=== PATIENT | female | born 1965 | race Caucasian/White ===

== ENCOUNTER → 2021-01-06 12:54 | Outpatient (CLI) | payer OTHER, BC, SELFPAY ==
--- NOTE | 2021-01-06 13:03 | XR_ITS ---
PROCEDURE: XR HAND LT MIN 3V CLINICAL INDICATION: Left hand injury COMPARISON: No exams were available for comparison FINDINGS: No fracture or dislocation. No lytic or blastic change. There is normal mineralization. The joint spaces are well-preserved. No significant degenerative/arthritic changes. No erosive changes evident. Other findings:None. IMPRESSION: No acute findings. Dictated by: Renato Lim MD 01/06/2021 17:04 Renato Lim MD in [place] 01/06/2021 17:04
== END ==
PROVIDERS: PCP Family Medicine; Visit Provider Family Medicine
DX: M79.642 Pain in left hand (principal); Y99.0 Civilian activity done for income or pay
CPT/HCPCS: 73130

== ENCOUNTER → 2021-02-11 15:17 | Outpatient (CLI) | payer BC, SELFPAY | PROVIDERS: Visit Provider Nurse Practitioner Family | DX: R39.15 Urgency of urination (principal); B96.20 Unspecified Escherichia coli [E. coli] as the cause of diseases classified elsewhere | CPT/HCPCS: 87086; 87088; 87186 ==

== ENCOUNTER → 2021-04-07 08:26 | Outpatient (CLI) | payer BC, SELFPAY ==
--- NOTE | 2021-04-07 08:35 | XR_ITS ---
FINAL REPORT CLINICAL HISTORY: right shoulder pain x 1 month FINDINGS: RIGHT SHOULDER Three views demonstrate no acute fracture or dislocation. There are mild degenerative changes of the acromioclavicular joint. The visualized bony structures are well aligned. No soft tissue abnormality is seen. IMPRESSION: Mild degenerative changes of the acromioclavicular joint. Reviewed, Interpreted and Dictated by Yuval Mims III, MD Transcribed by Cyndy Nix Authenticated by Yuval Mims III, MD on 04/07/2021 10:18:[address] [facility]
== END ==
LOC: RAD 08:27
PROVIDERS: PCP Family Medicine; Visit Provider Orthopaedic Surgery
DX: M25.511 Pain in right shoulder (principal)
CPT/HCPCS: 73030

== ENCOUNTER → 2021-04-20 14:58 | Outpatient (CLI) | payer BC, SELFPAY ==
--- NOTE | 2021-04-20 14:58 | MR_ITS ---
FINAL REPORT CLINICAL HISTORY: shoulder pain. SHOULDER PAIN AND STIFFNESS [id number]. NO INJURY OR TRAUMA. LIMITED ROM. PRIOR X-RAY 04-07-21 FINDINGS: Multiplanar MR imaging of the right shoulder was performed without contrast. Supraspinatus and infraspinatus tendinosis with partial-thickness, articular surface tear of the infraspinatus tendon measuring less than 50%. There is mild a.c. joint arthrosis with mild spurring of the undersurface of the acromion. A small amount of fluid is seen in the subacromial/subdeltoid bursa. There is thickening of the joint capsule at the axillary recess consistent with adhesive capsulitis. The glenoid labrum is intact. The long head of the biceps tendon is intact. No significant glenohumeral joint effusion is seen. There is no evidence of fracture or dislocation. The musculature is intact. There is no evidence of soft tissue mass. IMPRESSION: Supraspinatus and infraspinatus tendinosis with partial-thickness, articular surface tear of the infraspinatus tendon, less than 50%. Mild a.c. joint arthrosis with spurring at the undersurface of the acromion and small amount of fluid in the joint bursa. Thickening of the joint capsule of the axillary recess consistent with adhesive capsulitis. Reviewed, Interpreted and Dictated by Yuval Mims III, MD Transcribed by Velia Armas Authenticated by Yuval Mims III, MD on 04/20/2021 05:03:49 PM [facility]
== END ==
LOC: RAD 14:58
PROVIDERS: PCP Family Medicine; Visit Provider Orthopaedic Surgery
DX: M12.811 Other specific arthropathies, not elsewhere classified, right shoulder (principal)
CPT/HCPCS: 73221

== ENCOUNTER → 2022-02-05 14:26 | Outpatient (CLI) | payer BC, SELFPAY ==
[2022-02-05 19:54] LABS: Basophils # 0.1 K/mm3 (0-0.2); Basophils % 1.1 % (0.1-2.0); Eosinophils # 0.4 K/mm3 (0.0-0.4); Eosinophils % 3.2 % (0.1-12.0); Hematocrit 43.6 % (37.0-47.0); Hemoglobin 14.2 g/dL (12.2-16.2); Lymphocytes # 3.6 K/mm3 (0.7-4.5); Lymphocytes % 27.5 % (10-50); Mean Corpuscular HGB Conc 32.5 g/dL (31.8-35.4); Mean Corpuscular Hemoglobin 27.9 pg (27.0-31.2); Mean Corpuscular Volume 85.9 fl (81-99); Mean Platelet Volume 9.3 fl (7.4-10.4); Monocytes # 0.6 K/mm3 (0.1-1.0); Monocytes % 4.7 % (1.7-9.3); Neutrophils # 8.2 K/mm3 (1.8-7.8); Neutrophils % 63.5 % (37.0-80.0); Platelet Count 510 K/mm3 (142-424); Red Blood Count 5.08 M/mm3 (4.20-5.40); Red Cell Distribution Width 13.3 % (11.5-17.5); White Blood Count 12.9 K/mm3 (4.8-10.8)
== END ==
PROVIDERS: PCP Family Medicine; Visit Provider Family Medicine
DX: R05.9 Cough, unspecified (principal)
CPT/HCPCS: 85025

== ENCOUNTER → 2022-08-06 21:58 | Outpatient (CLI) | payer BC, SELFPAY ==
[2022-08-06 23:14] LABS: Thyroid Stimulating Hormone 0.97 uIU/mL (0.465-4.68)
[2022-08-06 23:33] LABS: Vitamin B12 352 pg/mL (239-931)
== END ==
PROVIDERS: PCP Family Medicine; Visit Provider Family Medicine
DX: G62.9 Polyneuropathy, unspecified (principal)
CPT/HCPCS: 82607; 84443

== ENCOUNTER 2023-09-26 15:45 | Outpatient (CLI) | payer BC, SELFPAY ==
--- NOTE | 2023-09-26 15:52 | MR_ITS ---
FINAL REPORT TECHNIQUE: Multiplanar MR imaging of the right shoulder was obtained before and after the injection of IV contrast. CLINICAL HISTORY: Previous right shoulder tears. COMPARISON: 04/20/2021 FINDINGS: MRI RIGHT SHOULDER WITHOUT AND WITH CONTRAST Marrow signal: Unremarkable Glenohumeral joint: Physiologic effusion. Mild degenerative changes. AC joint: Moderate arthropathy. Mild rotator cuff impingement. Trace amount of fluid in the subacromial bursa. Rotator cuff: Tendinosis of the supraspinatus and infraspinatus tendons it is again noted. There is a new small partial tear at the undersurface of the distal supraspinatus tendon. Labrum: Normal morphology without tear Biceps tendon: Intra-articular long head biceps tendon intact. No mass or abnormal enhancement is seen. IMPRESSION: 1. Interval development of a small partial tear of the distal supraspinatus tendon. 2. No labral tear. 3. No mass or abnormal contrast-enhancement. Reviewed, Interpreted and Dictated by Tracy Pino MD Transcribed by Leilani Tirado Authenticated and [facility]
[2023-09-26] MEDS: GADOTERIDOL INJ 20ML SYRINGE 18 ML IV (16:28)
[2023-09-26] MEDS: SODIUM CHLORIDE 0.9% 10ML SYR (RAD ONLY) 10 ML IV (16:29)
== END 2023-09-26 23:59 | disposition home or self-care (01) ==
LOC: RAD 15:46
PROVIDERS: PCP Family Medicine; Visit Provider Family Medicine
DX: M25.511 Pain in right shoulder (principal)
CPT/HCPCS: 73223; A9576

== ENCOUNTER 2024-06-01 14:18 | Outpatient (CLI) | payer MEDICARE, SELFPAY ==
--- NOTE | 2024-06-01 14:30 | MR_ITS ---
FINAL REPORT CLINICAL HISTORY: Enversion w/pop; Negative XRs; Lateral Ankle pain; TWISTED LEFT ANKLE JAN 2024 , WITH LATERAL ANKLE PAIN AND SWELLING FINDINGS: Multiplanar MR imaging of the left ankle was performed without contrast. The Achilles tendon is intact. The plantar fascia is intact. There is a small plantar calcaneal spur. There is a large osteochondral lesion in the medial talar dome measuring approximately 1.3 cm. The mortise is intact. The supporting tendons about the ankle are intact. No significant joint effusion is seen. The musculature is intact. There is no evidence of soft tissue mass or cyst. IMPRESSION: Large osteochondral lesion in the medial talar dome. Reviewed, Interpreted and Dictated by Gianluca Parekh MD Transcribed by Leilani Tirado Authenticated and [facility]
== END 2024-06-01 23:59 | disposition home or self-care (01) ==
LOC: RAD 14:18
PROVIDERS: PCP Family Medicine; Visit Provider Family Medicine
DX: M25.572 Pain in left ankle and joints of left foot (principal)
CPT/HCPCS: 73721

== ENCOUNTER 2024-08-17 09:34 | Inpatient (IN) | payer MEDICAID, SELFPAY ==
--- OUTSIDE RECORDS SUMMARY | 2024-06-28 11:00 | XMS_ITS | Encounter Summary ---
Author Organization [facility] Address [address] [place] [address] Care Team Providers Care Opener Name Role Phone Albaro Fields MD Primary Care Provider [phone] Reason for Referral * Physical Therapy (Routine) - Authorization Not Needed Specialty Diagnoses / Procedures Referred By Lit georges Referred To Contact Physical Therapy Diagnoses Left ankle pain, unspecified chronicity Osteochondral lesion of talar dome Neil Boston MD [address] [facility] [address] [place] [address] Phone: tel: fax: [facility] [address] [facility] [address] [place] [address] Phone: tel: fax: Referral ID Status Reason Start Date Expiration Date Visits Requested Visits Authorized [id number] Authorization Not Needed 06/28/2024 03/06/2025 1 20 Question Answer surgical procedure S/P Arthroscopy with Excision and Drilling OCD lesion talus Evaluate and Treat Yes Modalities/Procedures As Indicated, Iontophoresis with 0.4% Dexamethasone Solution Therapeutic Exercise As Indicated, Passive, Active, Progressive Resistive, Flexibility/Stretching Goals: Decrease pain and swelling, Increase function, Increase strength, Increase ROM Additional instructions: Frequency and duration per therapist discretion Comments Patient to perform home exercises daily * Surgical (Routine) - AFF Authorized Specialty Diagnoses / Procedures Referred By Lit georges Referred To Contact Orthopedic Surgery Diagnoses Osteochondral lesion of talar dome Procedures AMB OC SURGERY COMMUNICATION ORDER Hair Villagomez PA-C [address] [place] [address] Phone: tel: fax: [facility] [address] [place] [address] Phone: tel: fax: Referral ID Status Reason Start Date Expiration Date Visits Requested Visits Authorized [id number] AFF Authorized 06/28/2024 06/28/2025 1 1 Reason for Visit * Reason Comments Pain Encounter Details Date Type Department Care Team (Late st Contact Info) Description 06/28/2024 11:00 AM EDT Office Visit [facility] [address] [place] [address] Neil Boston MD [address] [place] [address] Left ankle pain, unspecified chronicity (Primary Dx); Osteochondral lesion of talar dome Social History Tobacco Use Types Packs/Day Years Used Date Smoking Tobacco: Some Days Cigarettes Smokeless Tobacco: Never Alcohol Use Standard Drinks/Week Comments No 0 (1 standard drink = 0.6 oz pur e alcohol) Comments No Sex and Gender Information Value Date Recorded Sex Assigned at Not on file Legal Sex Female 10:58 AM EST Gender Identity Not on file Sexual Orientation Not on file documented as of this encounter Progress Notes * Neil Boston MD - 06/28/2024 11:00 AM EDT Images from the original note were not included. Marco Boston MD Foot and Ankle Surgery and Sports Medicine [email or web address] Subjective: 06/28/2024 [facility] 58 y.o. female. HPI: History of Present Illness The patient presents for evaluation of left ankle pain. The pain was first noticed in 12/2023 or 01/2024, following an incident where she rolled her ankle while at work.. The pain persisted despite attempts at relative rest and returning to work.. Despitethe discomfort, she continued to work on the day of the incident. She was off work the following weekend and elevated her ankle. Immediate medical attention was not sought at the emergency room. Workwas resumed the subsequent week, but intermittent pain continued. Approximately a week after the initial injury, significant swelling was noted one morning, and she was unable to bear weight on the ankle. Medical attention was sought at [facility] in [place], where x-rays were pe rformed, but no abnormalities were detected. She was advised to consult her family doctor, who ordered an MRI later after an insurance delay. Due to insurance issues, the MRI was delayed until insurance was reinstated. The MRI results prompted her family doctor to refer her to our facility. She hasbeen off work since 01/2024 and continues to experience intermittent pain in her ankle. Pain management has included daily anti-inflammatory medication, which she had been taking prior to the ankle injury. Braces and rest have been tried without relief. A history of plantar fasciitis is noted, but no other ankle-related issues are reported. 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 Neuro: Alert and oriented to person, place, and time. Normal neurosensory response to touch. Musculoskeletal: Physical Exam - Musculoskeletal: - Left Ankle: - Mild effusion - Mild tenderness on the medial side - More tenderness on the lateral joint line - Negative anterior drawer - No varus tilt - No malalignment on sitting standing exam - Slightly decreased range of motion compared to the right Radiology/Laboratory Results: Results - Imaging: - X-ray of the left ankle (06/28/2024): Evidence of osteochondral lesion medial talar dome, maintenance of joint space - MRI of the left ankle (06/01/2024): Chronic osteochondral lesion medial talar dome with thinning and disruption of the cartilaginous surface in the posteromedial talus Assessment and Plan: Assessment & Plan - Osteochondral lesion of the left ankle, talus Treatment plan: Surgical intervention through ankle arthroscopic surgery is recommended due to the chronic nature of the pain and previous unsuccessful treatments with braces and medications. The procedure involves cleaning out the area, removing loose cartilage and pieces, and drilling tiny holes to stimulate healing. Outpatient surgery will be scheduled, allowing immediate weight-bearing post-surgery. Physicaltherapy will be essential for rehabilitation to restore motion and strength while the cartilage heals. Informed consent was obtained for left ankle arthroscopy, excision drilling osteochondral lesion talus. The risks, benefits, and alternatives of that procedure, the postoperative protocol, and the short term and long-term expectations were explained to the patient and/or patient guardian in detail. This discussion included the possible results of not having this intervention performed and the benefits and risks of these alternatives. If a non-autologous graft is planned, I have additionally discussed the risks, benefits, and alternatives to the use of such grafts. I explained the great importanceof compliance with postoperative instructions. The patient and/or guardian was encouraged to ask questions and those questions were answered to their satisfaction. The patient and/or guardian verbalized understanding of the discussion. Neil Boston MD Foot and Ankle Surgeon Please note that this water meter mechanic was created using voice recognition software. Any errors are unintentional and may be due to voice recognition water meter mechanic. The provider informed the patient (or legal apprenticeship representative) on the use of the ambient listening artificial intelligence tool, [id number] to obtain consent to its use. It was explained that this AI tool processes the conversation to generate a clinical note with the expected benefit of improved accuracy with a goal of improving the encounter experience for the patient and provider.?The provider explained that the medical information captured by the AI tool would be protected by applicable privacy laws. The patient was given an opportunity to ask questions and opt out of proceeding with the use of the AI tool. After being informed of such information, the patient (or legal apprenticeship representative), and each individual in attendance with the patient, consented to the use of the AI tool. Neil Boston MD documented in this encounter Miscellaneous Notes * Addendum Note - Norman Linares, Clerical Staff - 06/28/2024 11:00 AM EDT Addended by: NORMAN LINARES on: 06/28/2024 02:11 PM Modules accepted: Orders documented in this encounter Plan of Treatment Upcoming Encounters Date Type Department Care Team (Late st Contact Info) Description 08/30/2024 10:30 AM EDT Office Visit [facility] [address] [place] [address] Hair Villagomez PA-C [address] [place] [address] Scheduled Orders Name Type Priority Associated Diagnoses Orde r Schedule SURGICAL/PROCEDURE CASE REQUEST - [facility] Procedures Routine Osteochondral lesion of talar dome Ordered: 06/28/2024 Scheduled Referrals Name Type Priority Associated Diagnoses Orde r Schedule AMB REFERRAL TO PHYSICAL THERAPY Outpatient Referral Routine Left Ankle Pain, Unspecified Chronicity Osteochondral lesion of talar dome Ordered: 06/28/2024 documented as of this encounter Results * XR ANKLE LEFT AP LATERAL AND OBLIQUE INCLUDING STANDING (06/28/2024 11:02 AM EDT) Narrative Genericuser, Audit - 06/28/2024 11:03 AM EDT Please see physician's note from office encounter for x-ray imaging result Neil Boston MD IMG DIAGNOSTIC IMAGING ORDER ROLANDO Final Result documented in this encounter Visit Diagnoses Diagnosis Left ankle pain, unspecified chronicity- Primary Osteochondral lesion of talar dome Disorder of bone and cartilage, unspecified Left ankle pain, unspecified chronicity documented in this encounter Orders Nursing Count Last Ordered Date First Orde red Date AMB [facility] SURGERY COMMUNICATION ORDER 1 2024 documented in this encounter Care Teams Opener Relationship Specialty Start Date End Date Albaro Fields MD PCP - General Family Medicine 05/08/13 documented as of this encounter
--- OUTSIDE RECORDS SUMMARY | 2024-06-28 11:15 | XMS_ITS | Encounter Summary ---
Author Organization [facility] Address [address] [place] [address] Care Team Providers Care Glass Ribbon Machine Operator Name Role Phone Albaro Fields MD Primary Care Provider [phone] Encounter Details Date Type Department Care Team (Late Contact Info) Description 06/28/2024 11:15 AM EDT [facility] [address] [address] Neil Boston MD [address] [id number] Left ankle pain, unspecified chronicity Social History Tobacco Use Types Packs/Day Years [...] on file documented as of this encounter Plan of Treatment Upcoming Encounters Date Type Department Care Team (Late st Contact Info) Description 08/30/2024 10:30 AM EDT Office Visit [facility] [address] [address] Hair Villagomez PA-C [address] [place], [place] [id number] documented as of this encounter Procedures Procedure Name Priority Date/Time Associated Diagnosis Comments XR ANKLE LEFT AP LATERAL AND OBLIQUE INCLUDING STANDING Routine 06/28/2024 11:02 AM EDT Left ankle pain, unspecified chronicity documented in this encounter Results * XR ANKLE LEFT AP LATERAL AND OBLIQUE INCLUDING STANDING (06/28/2024 11:02 AM EDT) Narrative Genericuser, Shane - 06/28/2024 11:03 AM EDT Please see physician's note from office encounter for x-ray imaging result us Neil Boston MD IMG DIAGNOSTIC IMAGING ORDER ROLANDO Final Result documented in this encounter Visit Diagnoses Diagnosis Left ankle pain, unspecified chronicity documented in this encounter Care Teams Glass Ribbon Machine Operator Relationship Specialty Start Date End Date Albaro Fields MD PCP - General Family Medicine 05/08/13 documented as of this encounter
--- OUTSIDE RECORDS SUMMARY | 2024-07-25 07:53 | XMS_ITS | Encounter Summary ---
Author Organization [facility] Address [address] [place] [phone] Phone Care Team Providers Care Screw Machine Adjuster Automatic Name Role Phone Albaro Fields MD Primary Care Provider [phone] Encounter Details Date Type Department Care Team (Late st Contact Info) Description 07/25/2024 7:53 AM EDT Anesthesia Event [facility] [address] [place], [place] [phone] Rachele Jordan CRNA [address] [facility] [address] [place] [address] Derrick Fish MD 340 [facility] [address] [place] [phone] Anesthesia Record Procedure Summary Procedure Name Responsible [...] acknowledgement of understanding from the receiving 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 0839 An Stop Meds Name Total lidocaine [...] Fibromyalgia GI/Hepatic/Renal - negative ROS Endo/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 Additional Pre-evaluation comments Opioids Body mass index [...] [facility] [address] [place] [address] Hair Villagomez PA-C [address] [place] [address] documented as of this encounter Procedures Procedure Name Priority Date/Time Associated Diagnosis Comments INTRAOP AIRWAY PLACEMENT Routine 07/25/2024 8:12 AM EDT documented in this encounter Results * INTRAOP AIRWAY PLACEMENT (07/25/2024 8:12 AM EDT) Narrative [facility] - 07/25/2024 8:12 AM EDT Rachele Jordan ELECTRIC RANGE ASSEMBLER 07/25/2024 8:12 AM Intraop Airway Placement: Date/Time: 07/25/2024 8:12 AM Induction type: IV Mask size: Standard adult Pre-Oxygenation: Standard Mask ventilation: Easy mask ventilation Airway type: LMA Topical Anesthetic/Lubricant: Lubricant jelly Airway location: Oral Device size: 4 Measured from: Lips Placement verified: Auscultation, End tidal CO2 and Symmetric chest wall motion Condition: Atraumatic and Unchanged Insertion attempts: 1 Title: ELECTRIC RANGE ASSEMBLER us Rachele Jordan ELECTRIC RANGE ASSEMBLER [place] ANESTHESIA Final Re sult [facility] [address] [place] [address] documented in this encounter Visit [...] mg documented in this encounter Care Teams Screw Machine Adjuster Automatic Relationship Specialty Start Date End Date Albaro Fields MD PCP - General Family Medicine 05/08/13 documented as of this encounter
--- OUTSIDE RECORDS SUMMARY | 2024-07-25 08:00 | XMS_ITS | Encounter Summary ---
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 [M89.9, M94.9] Procedures OR ARTHRS ANKLE EXC OSTCHNDRL DFCT W/DRLG DFCT Left Ankle Arthroscopy, excision drilling osteochondral lesion talus [facility] [address] [place] [phone] Phone: tel: fax: Referral ID Status Reason Start Date Expiration Date Visits Re quested Visits Authorized [id number] 1 1 Encounter Details Date Type Department Care Team (Late st Contact Info) Description 07/25/2024 8:00 AM EDT - 07/25/2024 11:59 PM EDT Hospital Encounter [facility] [address] [place], [place] [id number] Neil Boston MD [address] [address] Discharge Disposition: Home or Self Care Social History Tobacco Use Types Packs/Day Years Used Date Smoking Tobacco: Some Days Cigarettes 1 0.2 Started: 06/2024 Smokeless Tobacco: Never Tobacco Cessation:Ready to Q uit: Not Asked; Counseling Given: Not Answered Alcohol Use Standard Drinks/Week Comments No 0 (1 standard drink = 0.6 oz pur e alcohol) Comments No Sex and Gender Information Value Date Recorded Sex Assigned at Not on file Legal Sex Female 10:58 AM EST Gender Identity Not on file Sexual Orientation Not on file documented as of this encounter Last Filed Vital Signs Vital Sign Reading Time Taken Comments Blood Pressure 132/67 07/25/2024 8:55 AM EDT Pulse 73 07/25/2024 8:55 AM EDT Temperature 36.5 C (97.7 F) 07/25/2024 8:40 AM EDT Respiratory Rate 12 07/25/2024 8:55 AM EDT Oxygen Saturation 93% 07/25/2024 8:55 AM EDT Inhaled Oxygen Concentration - - Weight 89.8 kg (198 lb) 07/25/2024 6:25 AM EDT Height 162.6 cm (5' 4 ) 07/25/2024 6:25 AM EDT Body Mass Index 33.99 07/25/2024 6:25 AM EDT documented in this encounter Discharge Instructions * Discharge Instructions* Neil Boston MD - 07/25/2024 7:08 AM EDT Images from the original note were not included. Neli Boston MD [facility] DISCHARGE INSTRUCTIONS: READ THIS! 1. READ THESE INSTRUCTIONS WHEN YOU GET HOME, AND KEEP THIS COPY FOR REFERENCE AT HOME. Keep following these instructions until you are instructed otherwise. Following these instructions will help you recover with better pain control and a better outcome. 2. Do not drive or drink alcoholic beverages for 24 hours after surgery or while taking pain medication. Do not drive if you have a splint on your right foot. 3. Keep surgical foot elevated higher than heart as much as possible during the day. Avoid elevation and lay flat while sleeping. 4. What to expect following surgery. a) You received a nerve block before or during surgery. It is normal to have numbness or tingling ranging from 5-24 hours. B) Swelling in your toes C) Bruising or discoloration of the toes 5. Apply ice pack to foot or ankle five times a day for 45 minutes or more while awake. Avoid ice while sleeping. Do this even if the dressing is thick and you don't feel the cold. 6. Contact Dr. Boston' office or go to the emergency room if: a) You notice unusual redness, bleeding or drainage, rash, hives, or vomiting. b) Your pain is not managed by rest, ice, elevation, and pain medication. c) Go to ER immediately if you experience difficulty breathing or severe vomiting. 7. Weightbearing as tolerated on surgical foot using crutches or walker as needed. You may gradually discontinue crutches or walker only if well tolerated. 8. Up as tolerated, but limit your activity very significantly and protect your incision. 9. Keep dressing clean, dry and in place until 07/27/24, then may remove and shower the foot/ankle; then reapply a light bandage daily. Do not soak or submerge foot/ankle in bathtub or swimming pool of any kind. 10. May remove boot or surgical shoe for shower and sleep. May gradually convert to your own well-fitting shoe after three days only if well tolerated. If needed you may convert to your removable Cast Boot in 2 days, after dressing change. 11. Call the office as soon as possible at [phone] to confirm or schedule a follow up visit with TONI Weathers in 12-16 days at our [facility] location. 12. Take 800mg Ibuprofen 3 times a day for 7 days. A prescription has been sent to your pharmacy. You may also choose to use over the counter Ibuprofen/Advil rather than filling your prescription. Avoid if allergic or on blood thinners other than aspirin. May stop using this once pain is tolerable. 13. Take 1000mg Acetaminophen (Tylenol) 3 times a day consistently for 10 days, then as needed if still painful. This medication is available over the counter. Avoid if you have a history of liver disease or you are prescribed [place] (Hydrocodone/APAP). 14. A prescription will be sent to your pharmacy for Oxycodone (use this medication only as needed for pain uncontrolled by Ibuprofen and/or Tylenol; no more than 1-2 tablets every 4-6 hours). 15. Discontinue Oxycodone once pain is tolerable. 16. Common side effects include: nausea, vomiting, constipation, and itching. Drink plenty of waterto minimize the chance of side effects. 17. A prescription for promethazine/Phenergan has been sent to your pharmacy. This medication is chiquita used only as needed for nausea/vomiting that may occur after surgery due to side effects from anesthesia or pain medication. 18. Continue previous home medications as previously taken unless otherwise instructed. 19. Refills for pain medication are only available Tuesday thru Tuesday from 9am- 4pm. Refills may take 48 hours to process. Patients are requested to contact the office directly rather than requesting pain medication refills thru the pharmacy. [facility] Discharge Instructions - Following Anesthesia We appreciate the opportunity to care for you today! Here are a few reminders as you head home: A responsible adult, 18 years or older must be in attendance until tomorrow morning. Rest quietly today. May resume usual diet as tolerated or as directed by your surgeon. Do not drive or operate any machinery until tomorrow morning or as instructed. Do not make any legal or important decisions for the next 24 hours. Do not drink alcoholic beverages or take sleeping pills for 24 hours unless otherwise directed. If you received a nerve block for post-operative pain control, protect your blocked arm/leg. It is numb. Carefully pad your limb to prevent pressure sores and other injuries. Be careful with applyingcold/warm to the blocked limb. Numbness will alter the sensation of the limb and could damage your skin if you cannot correctly feel the temperature. Some nerve blocks with the medication Exparel aredesigned to last up to 3 days. If you have questions or concerns regarding your anesthesia experience, please call our office at . Get Well Soon! [facility] * Attachments The following attachments cannot be sent through Care Everywhere. * How to Use an Incentive Spirometer (Prydeinig) documented in this encounter Medications at Time of Discharge UNABLE TO FIND Take 20 mg by mouth daily. Med Name: Piroxican albuterol (PROVENTIL HFA;VENTOLIN HFA) 90 mcg/actuation Inhl HFA Aerosol Inhaler Inhale 2 Puffs into the lungs every 6 hours as needed for Wheezing. oxyCODONE (ROXICODONE) 5 mg Oral Tablet Take 1-2 Tablets by mouth See Admin Instructions. Every 8 hours as needed for pain 10 Tablet 07/25/2024 promethazine (PHENERGAN) 25 mg Oral Tablet Take 1 Tablet by mouth every 6 hours as needed for Nausea. 10 Tablet 07/25/2024 SUMAtriptan (IMITREX) 100 mg Oral Tablet Take 100 mg by mouth once as needed for Migraine. acetaminophen (TYLENOL) 500 mg Oral Tablet Take 2 Tablets by mouth every 8 hours for 10 days. 07/25/2024 5 ibuprofen (ADVIL;MOTRIN) 800 mg Oral Tablet Take 1 Tablet by mouth 3 times daily for 7 days. 21 Tablet 07/25/2024 documented as of this encounter Ordered Prescriptions Prescription Sig Dispense Quantity Refills Last Filled Start Date End Date promethazine (PHENERGAN) 25 mg Oral Tablet Take 1 Tablet by mouth every 6 hours as needed for Nausea. 10 Tablet 07/25/2024 oxyCODONE (ROXICODONE) 5 mg Oral Tablet Take 1-2 Tablets by mouth See Admin Instructions. Every 8 hours as needed for pain 10 Tablet 07/25/2024 acetaminophen (TYLENOL) 500 mg Oral Tablet Take 2 Tablets by mouth every 8 hours for 10 days. 07/25/2024 5 ibuprofen (ADVIL;MOTRIN) 800 mg Oral Tablet Take 1 Tablet by mouth 3 times daily for 7 days. 21 Tablet 07/25/2024 5 documented in this encounter Discharge Disposition Disposition Code Departure Means Destination Home or Self Care documented in this encounter Progress Notes * Mirna Padilla RN - 07/25/2024 9:12 AM EDT [facility] VSS. Denies pain. to bedside and discharge instructions reviewed. Darco placed per order & has walker & crutches at home if needed. Pt taken to car in wheelchair by RN. documented in this encounter Procedure Notes * Neil Boston MD - 07/25/2024 8:00 AM EDT Operative note Preoperative diagnosis: --Left ankle osteochondral lesion talus Postoperative diagnosis: Same Title of operation: --Left ankle arthroscopy, with excision and drilling of osteochondral lesion talus Surgeon: Neil Boston MD Tool Filer: TONI Pickett A skilled surgical services assistant was utilized and medically essential to the procedure. The skilled nurse first assist was necessary for positioning of the extremity during the procedure, as well as assisting with instrumentation and careful retraction of vital structures. The skilled nurse first assist was responsible for maintaining position of the foot and ankle in the appropriate position so thatthe surgeon had the availability of two hands free for doing dissection of vital structures, visualizing the surgical field and images, and also placing any implants necessary for the surgery. The skilled nurse first assist was also utilized for incisional closure. Anesthesia: General with intraoperative local Indications: chronic ankle pain from the above diagnosis. Informed consent obtained for the above procedure. Description of procedure: In the preoperative holding area the appropriate surgical site was identified and signed by the surgeon during a confirmation discussion with the patient. The patient was taken to the operating room placed supine on the operating table. General anesthesia was administered. A well-padded pneumatic tourniquet was placed around the surgical side thigh. A well-padded bump placed on the surgical side buttock. The surgical side thigh was placed in a well-padded arthroscopic leg trejo. The surgical lower extremity was prepped and draped in the usual sterile fashion while keeping the foot elevated at all times during preparation. The surgical lower extremity was elevated exsanguinated and the tourniquet was elevated. The ankle was injected through an anterior medial portal with 10 cc of 0.5% Marcaine with epinephrine. The anterior medial portal was established with a small skin only incision just medial to the anterior tibial tendon at the level of the joint. Blunt dissection was carried through subcutaneous tissues down through the capsule. An anterolateral portal was established at the joint line just lateral to the peroneus tertius tendon with a skin incision only and blunt dissectionthrough and into the capsule into the joint. The noninvasive ankle distractor was attached with minimal distraction. The blunt obturator was used to introduce the ankle arthroscopic cannula into the anterior medial portal. Camera was placed through the obturator. Complete examination of the ankle including the anterior and middle and posterior compartments as well as the medial central and lateral compartments and the medial and lateral gutter was performed by placing the camera through both the anteromedial and then subsequently the anterolateral portal using a probe in the opposite portal to visualize and palpate normal tissue and pathology in each compartment. Findings: The osteochondral lesion in the medial talar dome consistent with presurgical imaging wasnoted. It was unstable with loose cartilaginous fragment and nonrepairable bony fragment. Technical procedure: The loose fragmented OCD lesion was removed with a grasper and arthroscopic shaver. The surrounding base of the lesion was smoothed with arthroscopic shaver and thermal wand. Thebony base was then drilled multiple times using chondral pick technique, producing punctate bleeding at the base of the lesion. Closure: The joint was then reinspected through all compartments revealing no remaining pathology or loose bodies. Shaver was used to irrigate and remove any debris from procedure. Arthroscopic instruments were removed. The skin was closed with 3-0 nylon suture. Ankle joint was injected with 10 cc of 0.5% Marcaine with epinephrine. Sterile dressing was applied. Gentle compression dressing applied. Patient transferred to the postanesthesia care unit. Postop care: First postop visit in 10 to 12 days for wound check, sutures out, Steri-Strips applied, tall contour boot weight-bear as tolerated full-time except for shower, sleep, drive, and formal and home PT exercises. Second follow-up with PA in 3 to 4 weeks, to wean from boot, advance PT and return to activities, anticipate continued gradual improvement, follow-up with Ludy as needed if no improvement documented in this encounter Nursing Notes * Gabriella Sarmiento RN - 07/04/2024 10:13 AM EDT Images from the original note were not included. 07/04/24 PREPARING FOR YOUR SURGERY Date of Surgery: 07/25/24 Time of Surgery: Your surgeon's office will notify you of your scheduled arrival time on 07/24/24. Medications on the Day of Surgery Take the following medications on the morning of surgery: Medications to hold prior to Surgery Hold any anti-inflammatory, aspirin, or supplements / vitamins for 7 days prior to the procedure, unless otherwise informed by your physician. You can take Tylenol if needed. If you are taking blood-thinners, reach out to the prescribing physician for instructions on when to stop this medication prior to your procedure. Food, Drinks, Tobacco Do not eat or drink anything after midnight. This includes gum, mints, candy, chewing tobacco, and dip. No exceptions or substitutions to these restrictions. Do not smoke, vape, or use any type of tobacco or marijuana products within 24 hours prior to surgery. Smoking will also slow your rate of healing. It is advised that you do not smoke during the healing process. No alcohol 24 hours prior to surgery. Keying Machine Operator It is important to have a Keying Machine Operator, someone who is 18 years or older, to accompany you and remain in the facility for the duration of your surgery. This person should be available for the Perioperative Team, which includes your surgeon, to communicate with before, during and after your surgery. Because you are receiving anesthesia, someone is needed to drive you home and remain with you for at least 24 hours after surgery to make sure you are safe during that time We also recommend that no children be present on the day of surgery. If you have a concern, please reach out to our department at [phone]. Hygiene Salyer your teeth and gargle the morning of surgery. Shower the morning of surgery or the night before. Do not wear makeup (including eye makeup) lotion, powder, deodorant, perfume, or cologne. Shower or bathe with chlorhexidine (CHG) the night before your surgery or the morning of your surgery. Do not shave the area of your body where your surgery will be performed. With each shower or bath, wash your hair as usual first with your regular shampoo. Rinse your hair and body thoroughly after you shampoo your hair to remove the shampoo residue. Apply the chlorhexidine (CHG) soap to your entire body ONLY FROM THE NECK DOWN. Wash thoroughly, paying special attention to the area where your surgery will be performed. Do not use chlorhexidine (CHG) on your head, face or near your mouth. Do not use near eyes or ears to avoid permanent injury tothose areas. Do not use chlorhexidine in the genital area. Turn water off to prevent rinsing the soap off too soon. Wash your body gently for five (5) minutes. Do not scrub your skin too hard. Do not wash with your regular soap after chlorhexidine (CHG) is used. Turn the water back on and rinse your body thoroughly. Pat yourself dry with a clean, soft towel. Do not apply any lotions, perfumes or powders after use. See additional information located under label on product. Do not shave the operative extremity or near the operative area. Remove nail malawian prior to surgery. This includes artificial nails and gel nail malawian. Personal Items Wear clean, simple, loose-fitting clothing (no jeans) and sturdy shoes (no flip flops, slides or crocs) to the surgery center. Do not bring unnecessary valuables with you. It is policy that [facility] does not assume responsibility for lost, stolen or broken personal items that are brought in. Exceptions may be considered for items which are considered necessary for your healthcare. These items will be formally documented. Remove all jewelry prior to surgery to prevent injury. We will not tape wedding rings/bands Remove all body piercings prior to arrival. Plastic inserts are acceptable. If you have dentures, they may need to be removed before going into the operating room. We will have a case for them. Glasses and contacts will need to be removed prior to surgery. Please bring a case for them. If you have hearing aids, please wear them to the hospital and bring a case. Bring with You Bring a copy of your Living Will and/or Durable Power of Market Editor for Healthcare. Bring any medical equipment that your surgeon advises you to use for postoperative care such as braces, slings, boots, crutches, walkers, etc. Notify the Surgeon Notify your surgeon if you develop any illness (fever, cold, cough, sore throat, nausea, vomiting, skin rashes etc.) between now and surgery time Notify your surgeon and Pre-admission testing ([phone]) if you have any changes in your healthconditions or if any new medications are ordered between now and surgery. Questions or Concerns? If you have any questions or concerns, feel free to call the Pre-Admission testing department at [phone]. We want to make sure you feel safe and have an excellent experience while you are here. Our address is [address] [place] [address] Do not reply to this message through [employer] as it may not be answered promptly. documented in this encounter Plan of Treatment Upcoming Encounters Date Type Department Care Team (Late st Contact Info) Description 08/30/2024 10:30 AM EDT Office Visit [facility] [address] [place] [address] Hair Villagomez PA-C [address] [place] [address] documented as of this encounter Procedures Procedure Name Priority Date/Time Associated Diagnosis Comments OR ARTHRS ANKLE EXC OSTCHNDRL DFCT W/DRLG DFCT 07/25/2024 7:56 AM EDT Osteochondral lesion of talar dome Special Needs bv documented in this encounter Visit Diagnoses Diagnosis Osteochondral lesion of talar dome- Primary Disorder of bone and cartilage, unspecified documented in this encounter Admitting Diagnoses Diagnosis Osteochondral lesion of talar dome Disorder of bone and cartilage, unspecified documented in this encounter Administered Medications Inactive Administered Medications - up to 1 most recent administrations Medication Order MAR Action Action Date Dose Rate Site acetaminophen (TYLENOL) tablet 1,000 mg 1,000 mg, Oral, PREPROCEDURE, 1 dose, Starting on Tue07/25/24 at 0601, Until Tue07/25/24 at 0630, Coanalgesic, Do not give if patient received acetaminophen within the last 6 hours Maximum adult dose of acetaminophen is 4000 mg from all sources in 24 hours., Pre-op (Holding/SDS Meds) Given 07/25/2024 6:30 AM EDT 1,000 mg lactated ringers infusion Intravenous, at 100 mL/hr, PREPROCEDURE CONTINUOUS, Starting on Tue07/25/24 at 0601, Until Shania 07/26/24 at 0411, To be given in SDS/Pre-op Holding Area, Pre-op (Holding/SDS Meds) IV Restarted 07/25/2024 8:04 AM EDT documented in this encounter Discontinued Medications Medication Sig Discontinue Reason Start Date End Da te acetaminophen (TYLENOL) 500 mg tablet Take 1,000 mg by mouth every 6 hours as needed for Pain. Stop Taking at Discharge 07/25/2024 Cholecalciferol, Vitamin D3, 2,000 unit Cap Take 1 Cap by mouth daily. Stop Taking at Discharge 07/25/2024 acetaminophen (TYLENOL) 650 mg CR tablet Take 650 mg by mouth every 8 hours as needed for Pain. Stop Taking at Discharge 07/25/2024 nicotine (NICODERM CQ) 21 mg/24 hr patchIndications:Fibro myalgia,OA (osteoarthritis),[place] krysta C-reactive protein (CRP),Elevated white blood cell count,Elevated hemoglobin,Smoker,Medi cation monitoring encounter Place 1 Patch onto the skin daily. Stop Taking at Discharge 07/25/2024 HYDROcodone-acetaminop hen (NORCO) 7.5-325 mg per tabletIndications:Fibr omyalgia,OA (osteoarthritis),[place] krysta C-reactive protein (CRP),Elevated white blood cell count,Elevated hemoglobin,Smoker,Medi cation monitoring encounter Take 1 Tab by mouth as needed for Pain. Stop Taking at Discharge 07/25/2024 naproxen (NAPROSYN) 500 mg tabletIndications:Fibr omyalgia,OA (osteoarthritis),[place] k[place]a C-reactive protein (CRP),Elevated white blood cell count,Elevated hemoglobin,Smoker,Medi cation monitoring encounter Take 500 mg by mouth 2 times daily. Stop Taking at Discharge 07/25/2024 cyclobenzaprine (FLEXERIL) 10 mg tabletIndications:Fibr omyalgia,OA (osteoarthritis),[place] C-reactive protein (CRP),Elevated white blood cell count,Elevated hemoglobin,Smoker,Medi cation monitoring encounter Take 0.5 Tabs by mouth daily as needed for Muscle spasms. Stop Taking at Discharge 10/05/2013 07/25/2024 meloxicam (MOBIC) 15 mg Oral TabletIndications:Acut e pain of right shoulder Take 1 Tablet by mouth daily. Stop Taking at Discharge 10/19/2023 07/25/2024 documented as of this encounter Historical Medications * This list may reflect changes made after this encounter. SUMAtriptan (IMITREX) 100 mg Oral Tablet Take 100 mg by mouth once as needed for Migraine. albuterol (PROVENTIL HFA;VENTOLIN HFA) 90 mcg/actuation Inhl HFA Aerosol Inhaler Inhale 2 Puffs into the lungs every 6 hours as needed for Wheezing. UNABLE TO FIND Take 20 mg by mouth daily. Med Name: Piroxican added in this encounter Orders Medications Ordered That Scott ht Not Have Been Administered Count Last Ordered Date First Ordered Date acetaminophen (OFIRMEV) infusion 1,000 mg 1 07/25/2024 BUPivacaine-EPINEPHrine (MARCAINE/SENSORCAINE) 0.5 %-1:200,000 injection 1 07/25/2024 ceFAZolin (ANCEF) 2 g in sod ium chloride IVPB 1 07/25/2024 dimenhyDRINATE (DRAMAMINE) 1 2.5-25 mg in sodium chloride 0.9% injection 1 07/25/2024 droPERidol (INAPSINE) injection 0.625 mg 1 07/25/2024 EPINEPHrine HCl (PF) Soln 1 07/25/2024 fentaNYL (SUBLIMAZE) injection 25 mcg 1 HYDROmorphone (DILAUDID) injection 0.25 mg 1 07/25/2024 meperidine (DEMEROL) injecti on (PF) 12.5 mg 1 07/25/2024 ondansetron (ZOFRAN) injection 4 mg 1 07/25 ondansetron (ZOFRAN-ODT) dis integrating tablet 8 mg 1 07/25/2024 oxyCODONE (ROXICODONE) immed iate release tablet 5 mg 1 07/25/2024 promethazine (PHENERGAN) 12. 5 mg in sodium chloride 0.9% 10 mL injection 1 07/25/2024 promethazine (PHENERGAN) 6.2 5 mg in sodium chloride 0.9% 10 mL injection 1 07/25/2024 sodium chloride 0.9 % irrigation 1 07/26/19 25 documented in this encounter Care Teams Upholstery Auto Trimmer Relationship Specialty Start Date End Date Albaro Fields MD PCP - General Family Medicine 05/08/13 documented as of this encounter
--- OUTSIDE RECORDS SUMMARY | 2024-07-25 08:00 | XMS_ITS | Encounter Summary ---
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, M94.9] Procedures [place] ARTHRS ANKLE EXC OSTCHNDRL DFCT W/DRLG DFCT Left Ankle Arthroscopy, excision drilling osteochondral lesion talus [facility] [address] [place] [phone] Phone: tel: fax: Referral ID Status Reason Start Date Expiration Date Visits Re quested Visits Authorized [id number] 1 1 Encounter Details Date Type Department Care Team (Late st Contact Info) Description 07/25/2024 8:00 AM EDT - 07/25/2024 8:45 AM EDT Surgery [facility] [address] [place] [address] Neil Boston MD [address] [facility] [address] [place] [id number] ANKLE ARTHROSCOPY EXCISION/DRILLING AND REPAIR OSTEOCHONDRAL DISSECANS LESION TALUS Surgery Details Date/Time Status Location OR Service Patient Class Case Class Case Type Trauma Case? 07/25/2024 8:00 AM Posted [facility] OR 2 Orthopedics Outpatient Elective Panel 1 Procedure LRB Anes Op Region Wound Class Comments ANKLE ARTHROSCOPY EXCISION/DRILLING AND REPAIR OSTEOCHONDRAL DISSECANS LESION TALUS Left General Foot/Ankle Clean Left Ankle Arthroscopy, excision drilling osteochondral lesion talus Surgeon Surgeon Role Service Panel Neil Boston MD Primary Orthopedics 1 Special Needs bv documented in this encounter Social History Tobacco [...] Sign Reading Time Taken Comments Blood Pressure 127/63 07/25/2024 8:45 AM EDT Pulse 76 07/25/2024 8:45 AM EDT Temperature 36.5 C (97.7 F) 07/25/2024 8:40 AM EDT Respiratory Rate 20 07/25/2024 8:45 AM EDT Oxygen Saturation 94% 07/25/2024 8:40 AM EDT Inhaled Oxygen Concentration - - Weight 89.8 kg (198 lb) 07/25/2024 6:25 AM EDT Height 162.6 cm (5' 4 ) 07/25/2024 6:25 AM EDT Body Mass Index 33.99 07/25/2024 6:25 AM EDT documented in this encounter Discharge Instructions * Discharge Instructions* Neil Boston MD - 07/25/2024 7:08 AM EDT Images from the original note were not included. Neil Boston MD [email or web address] DISCHARGE INSTRUCTIONS: READ THIS! 1. READ THESE [...] the office as soon as possible at [phone] to confirm or schedule a follow up visit with TONI Weathers in 12-16 days at our [facility] location. 12. Take 800mg Ibuprofen 3 [...] of liver disease or you are prescribed [place] (Hydrocodone/APAP). 14. A prescription will be sent [...] requesting pain medication refills thru the pharmacy. [facility] Discharge Instructions - Following Anesthesia We [...] our office at . [facility]! [facility] * Attachments The following attachments cannot be sent through Care Everywhere. * How to Use an Incentive Spirometer (Jordanian) documented in this encounter Medications at Time [...] 7 days. 21 Tablet 07/25/2024 5 documented as of this encounter Ordered Prescriptions [...] osteochondral lesion talus Surgeon: Neil Boston MD Custom Leather Products Maker: TONI Pickett A skilled surgical aides teacher was utilized and medically essential to the procedure. The skilled list of first job ideas was necessary for positioning of the extremity during the procedure, as well as assisting with instrumentation and careful retraction of vital structures. The skilled list of first job ideas was responsible for maintaining position of the foot and ankle in the appropriate position so thatthe surgeon had the availability of two hands free for doing dissection of vital structures, visualizing the surgical field and images, and also placing any implants necessary for the surgery. The skilled list of first job ideas was also utilized for incisional closure. Anesthesia: [...] No alcohol 24 hours prior to surgery. Cardiology Rn It is important to have a Cardiology Rn, someone who is 18 years or older, [...] please reach out to our department at [phone]. Hygiene [place] your teeth and gargle the morning of [...] or near the operative area. Remove nail lithuanian prior to surgery. This includes artificial nails and gel nail lithuanian. Personal Items Wear clean, simple, loose-fitting clothing [...] your Living Will and/or Durable Power of Mining Captain for Healthcare. Bring any medical equipment that your surgeon advises you to use for postoperative care such as braces, slings, boots, crutches, walkers, etc. Notify the Surgeon Notify your surgeon if you develop any illness (fever, cold, cough, sore throat, nausea, vomiting, skin rashes etc.) between now and surgery time Notify your surgeon and Pre-admission testing ([phone]) if you have any changes in your healthconditions or if any new medications are ordered between now and surgery. Questions or Concerns? If you have any questions or concerns, feel free to call the Pre-Admission testing department at [phone]. We want to make sure you feel safe and have an excellent experience while you are here. Our address is [address] [place] [address] Do not reply to this message through [employer] as it may not be answered promptly. documented in this encounter Plan of Treatment Upcoming Encounters Date Type Department Care Team (Late st Contact Info) Description 08/30/2024 10:30 AM EDT Office Visit [facility] [address] [facility] [address] [place] [address] Hair Villagomez PA-C [address] [place] [address] documented as of this encounter Procedures Procedure Name Priority Date/Time Associated Diagnosis Comments [place] ARTHRS ANKLE EXC OSTCHNDRL DFCT W/DRLG DFCT 07/25/2024 7:56 AM EDT Osteochondral lesion of talar dome Special Needs bv documented in this encounter Visit Diagnoses Diagnosis Osteochondral lesion of talar dome- Primary Disorder of bone and cartilage, unspecified Osteochondral lesion of talar dome Disorder of [...] Given 07/25/2024 6:30 AM EDT 1,000 mg BUPivacaine-EPINEPHrine (MARCAINE/SENSORCAINE) 0.5 %-1:200,000 injection PRN, Starting on Tue07/25/24 at 0817, Until Tue07/25/24 at 0910, Intra-op Given 07/25/2024 8:17 AM EDT 20 mL Left Ankle EPINEPHrine HCl (PF) Soln PRN, Starting on Tue07/25/24 at 0817, Until Tue07/25/24 at 0910, Intra-op Given 07/25/2024 8:17 AM EDT 1 mL Left Ankle lactated ringers infusion Intravenous, at 100 mL/hr, PREPROCEDURE CONTINUOUS, Starting on Tue07/25/24 at 0601, Until Tue07/26/24 at 0411, To be given in SDS/Pre-op Holding Area, Pre-op (Holding/SDS Meds) IV Restarted 07/25/2024 8:04 AM EDT sodium chloride 0.9 % irrigation PRN, Starting on Tue07/25/24 at 0816, Until Tue07/25/24 at 0910, Intra-op Given 07/25/2024 8:16 AM EDT 1,000 mL Left Ankle documented in this encounter Discontinued Medications Medication [...] (NICODERM CQ) 21 mg/24 hr patchIndications:Fibro myalgia,OA (osteoarthritis),[place] krysta C-reactive protein (CRP),Elevated white blood cell count,Elevated hemoglobin,Smoker,Medi cation monitoring encounter Place 1 Patch onto the skin daily. Stop Taking at Discharge 07/25/2024 HYDROcodone-acetaminop hen (NORCO) 7.5-325 mg per tabletIndications:Fibr omyalgia,OA (osteoarthritis),[place] krysta C-reactive protein (CRP),Elevated white blood cell count,Elevated hemoglobin,Smoker,Medi cation monitoring encounter Take 1 Tab by mouth as needed for Pain. Stop Taking at Discharge 07/25/2024 naproxen (NAPROSYN) 500 mg tabletIndications:Fibr omyalgia,OA (osteoarthritis),[place] krysta C-reactive protein (CRP),Elevated white blood cell count,Elevated hemoglobin,Smoker,Medi cation monitoring encounter Take 500 mg by mouth 2 times daily. Stop Taking at Discharge 07/25/2024 cyclobenzaprine (FLEXERIL) 10 mg tabletIndications:Fibr omyalgia,OA (osteoarthritis),[place] krysta C-reactive protein (CRP),Elevated white blood cell [...] acetaminophen (OFIRMEV) infusion 1,000 mg 1 07/25/2024 ceFAZolin (ANCEF) 2 g in sod ium chloride IVPB 1 07/25/2024 dimenhyDRINATE (DRAMAMINE) 1 2.5-25 mg in sodium chloride 0.9% injection 1 07/25/2024 droPERidol (INAPSINE) injection 0.625 mg 1 07/25/2024 fentaNYL (SUBLIMAZE) injection 25 mcg [...] chloride 0.9% 10 mL injection 1 07/25/2024 documented in this encounter Care Teams Law Office Receptionist Relationship Specialty Start Date End Date Albaro Fields MD PCP - General Family Medicine 05/08/13 documented as of this encounter
--- OUTSIDE RECORDS SUMMARY | 2024-08-07 13:30 | XMS_ITS | Encounter Summary ---
Author Organization [facility] Address [address] [place] [address] Care Team Providers Care Leader Assembler Name Role Phone Albaro Fields MD Primary Care Provider Reason for Referral * Physical Therapy (Routine) - Pending Review Specialty Diagnoses / Procedures Referred By Lit georges Referred To Contact Diagnoses Osteochondral lesion of talar dome Hair Villagomez PA-C [address] [place] [address] Phone: tel: fax: Referral ID Status Reason Start Date Expiration Date V isits Requested Visits Authorized [id number] Pending Review 08/07/2024 08/07/2025 1 1 Question [...] 08/07/2024 1:30 PM EDT Office Visit [facility] [address] [address] Hair Villagomez PA-C [address] [place] [address] Osteochondral lesion of talar dome [...] Foot and Ankle Surgery and Sports Medicine [email or web address] HPI: Patient status post left ankle surgery. [...] [facility] [address] [place] [address] Hair Villagomez PA-C [address] [place] [address] Scheduled Referrals Name Type Priority Associated Diagnoses Orde r Schedule AMB REFERRAL TO PHYSICAL THERAPY Outpatient Referral Routine Osteochondral lesion of talar dome Ordered: 08/07/2024 documented as of this encounter Visit Diagnoses Diagnosis Osteochondral lesion of talar dome- Primary Disorder of bone and cartilage, unspecified documented in this encounter Care Teams Leader Assembler Relationship Specialty Start Date End Date Albaro Fields MD PCP - General Family Medicine 05/08/13 documented as of this encounter
--- OUTSIDE RECORDS SUMMARY | 2024-08-09 10:30 | XMS_ITS | Encounter Summary ---
Author Organization [facility] Address [address] [place] [address] Care Team Providers Care Coremaker Floor Name Role Phone Albaro Fields MD Primary Care Provider [phone] Reason for Visit * Physical Therapy (Routine) - Authorization Not Needed Specialty Diagnoses / Procedures Referred By Lit georges Referred To Contact Physical Therapy Diagnoses Left ankle pain, unspecified chronicity Osteochondral lesion of talar dome Neil Boston MD [address] [place] [address] Phone: tel: fax: [facility] [address] [place] [address] Phone: tel: fax: Referral ID Status Reason Start Date Expiration Date Visits Requested Visits Authorized [id number] Authorization Not Needed 06/28/2024 03/06/2025 1 20 Encounter Details Date Type Department Care Team (Latest Contact Info) Description 08/09/2024 10:30 AM EDT Office Visit [facility] [address] [place], [place] [id number] Bela Mccormick, PT [address] [place] [address] Osteochondral lesion of talar dome (Primary Dx); Chronic pain of left ankle Social History Tobacco Use Types Packs/Day Years [...] as of this encounter Progress Notes * Bela Mccormick, PT - 08/09/2024 10:30 AM EDT Images from the original note were not included. Physical Therapy Evaluation 08/09/2024 Kathy Chua : 1965 Referring Provider: Neil Boston MD Next MD visit: 08/30/24 Encounter Diagnoses Name Primary? Osteochondral lesion of talar dome Yes Chronic pain of left ankle Surgery Date: 07/25/24 Onset date: December 2023 Contraindications/Precautions: WBAT Visit: 03/26 Time In: 10:38 am Time Out: 11:18 am Subjective: Kathy Chua is a 58 y.o. female referred by Neil Boston MD to outpatient PhysicalTherapy with a primary diagnosis of: Encounter Diagnoses Name Primary? Osteochondral lesion of talar dome Yes Chronic pain of left ankle History of Injury/Mechanism of Inury: Pt notes that she rolled her ankle at the end of December 2023. She notes that she paid little attention to it and went back to work. Approximately one week latershe woke with significant edema and difficulty walking. She went to the ER and was diagnosed with asprain. She was provided a boot to wear however she was not able to wear this to work so she just wrapped it in an maico wrap. She then rolled it again which caused her to seek treatment at [facility].She was evaluated by Dr Boston and an MRI was performed. This indicated an osteochondral lesion to the talar dome. She therefore underwent surgery on July 25 to repair the lesion. Pt notes that she was placed in a cast shoe after surgery and used a walker for approximately 24 hours. She then transitioned to a cane for several days and is now walking without assistance. She presents today for postop evaluation and initiation of treatment. Functional Deficits Since Injury: ADL, IADL, household chore Diagnostic Tests: MRI and X-rays - X-ray of the left ankle (06/28/2024): Evidence of osteochondral lesion medial talar dome, maintenance of joint space - MRI of the left ankle (06/01/2024): Chronic osteochondral lesion medial talar dome with thinning and disruption of the cartilaginous surface in the posteromedial talus Relevant Past Medical/Surgical History: see pt chart Current medications and allergies were reviewed with the patient. Occupation: Retired Work Requirements: Work Status: Retired Recreational Activities: walking, hiking in [place] Fall Risk: The patient is not currently a fall risk. Patient stated goals: Return to walking in the [place] without ankle symptoms. Pain at highest: 0/10 Pain at lowest: 0/10 Location: Description: Pain is described as dull. What Increases Pain?: walking on uneven surface, prolonged WB toward the evening, ascending stairs What Decreases Pain?: change of activity, rest Objective Posture : Mild pes planus noted bilat Joint Mobility: Mild decreased talonavicular mobility noted L Palpation: Mild TTP noted along the anterior joint line and scope portals Gait: Pt demo mild decreased push off on the L Sensation: Intact bilat LE Flexibility: Functional Mobility Screening: Other: GIRTH: mid malleoli R: 25.4 cm L 28.3 cm Ankle Date Date Date Date PROM Left Right Left Right DF PF EV INV Great Toe Extension Great Toe Flexion Date 08/09/24 Date 08/09/24 Date Date AROM Left Right Left Right DF 10 11 PF 45 58 EV 18 28 INV 31 42 Great Toe Extension Great Toe Flexion Date 08/09/24 Date 08/09/24 Date Date Strength Left Right Left Right DF 5/5 5/5 PF 4+/5 5/5 EV 4/5 5/5 INV 4+/5 5/5 Great Toe Extension Great Toe Flexion Special Tests: None Functional Assessment: 08/09/2024 10:00 AM Rehab Outcomes LEFS Total 58 LEFS Max Function 72.5 % Treatment s/p excision drilling osteochondral lesion talus LEFT 07/25/24 Treatment Date 08/09/2403/26 Date Date Date rope gastroc/ soleus str 30 x 3 ea ankle TB 4-way PTB x 20 ea standing HR 2x10 tandem stance 30 x 2 TB S-S GTB x 2 laps pt ed *tubigrip provided for edema control *ice/elevation *HEP daily *arch support in shoes Modalities Measurements Charges 40' 1 E, 1 TE HEP ID: [id number] Treatment today included: Timed Units: Therapeutic exercise: 20 minutes Total Time for Timed Treatments: 20 minutes Untimed Units: PT Eval Low Patient's Tolerance of Evaluation and/or Treatment: Good Response to HEP instruction/patient education: The patient verbalized understanding and demonstrated independence with home exercise program. Impression: Patient presents with signs and symptoms consistent with Encounter Diagnoses Name Primary? Osteochondral lesion of talar dome Yes Chronic pain of left ankle . Impairments (physical, cognitive and/or psychosocial): decreased mobility, edema/swelling, impairedbody mechanics, loss of balance, weakness, and pain/tenderness Performance Deficits: functional mobility, household tasks, sleeping/rest, recreational activities,and community/social participation Based on the functional impairments as stated and activity limitations above, Kathy presents as a good candidate for skilled intervention by a licensed therapist. Prognosis for Kathy based on the above objective findings is good . Goals Short term goals to be met in 4 weeks: Pt will be compliant with initial HEP to promote improved ROM, strength and function. Pt will tolerate WB without boot and DC crutches demonstrating a normalized gait pattern to allow improved navigation of her home. Pt will report decreased pain level at rest to </= 1-2/10 to allow for improved sleep. Pt will improve L ankle ROM equal to the R to promote normalized gait mechanics and improved function. Pt will improve strength to 4-/5 in L ankle grossly to allow for improved function in the home. correction goals to be met in 8 weeks: Pt will be compliant with final HEP to encourage continued exercise and decrease risk of re-injury. Pt will decrease pain with activity to </= 0-2/10 to allow for return to previous level of function. Pt will improve strength to 5/5 in L ankle grossly to allow for walking on uneven terrain to returnto previous level of function outside of the home. Pt will increase LEFS score to 70/80 to demonstrate overall improved function Plan Patient will continue PT in [facility]. Pt advised to call with questions or concerns. Treatment to include therapeutic exercise, neuromuscular reeducation, manual therapy, therapeutic activity, gait training, vasopneumatic pump, and electrical stimulation. Signature: Bela Mccormick, PT Date: 08/09/2024 [place] License: [id number] documented in this encounter Plan of Treatment Upcoming Encounters Date Type Department Care Team (Late st Contact Info) Description 08/30/2024 10:30 AM EDT Office Visit [facility] [address] [facility] [address] [place] [address] Hair Villagomez PA-C [address] [place] [address] Scheduled Referrals Name Type Priority Associated Diagnoses Orde r Schedule AMB REFERRAL TO PHYSICAL THERAPY Outpatient Referral Routine Left Ankle Pain, Unspecified Chronicity Osteochondral lesion of talar dome Ordered: 06/28/2024 documented as of this encounter Visit Diagnoses Diagnosis Osteochondral lesion of talar dome- Primary Disorder of bone and cartilage, unspecified Chronic pain of left ankle documented in this encounter Care Teams Coremaker Floor Relationship Specialty Start Date End Date Albaro Fields MD PCP - General Family Medicine 05/08/13 documented as of this encounter
[2024-08-17] VITALS (22 sets, daily range): BP systolic 106–175; BP diastolic 62–89; PULSE 64–127; RESP 15–20; TEMP 36.5–36.9; O2SAT 16–99; BMI 34.3; BMI 34.1
--- NOTE | 2024-08-17 09:33 | ECG_ITS ---
APPROVED REPORT Exam: Resting ECG HR:87 bpm ECG Measurements Heart Rate 87 AXES NV 165 P 60 QRSd 97 QRS -37 QT 370 T 13 QTc 414 Conclusion SINUS RHYTHM LEFT AXIS DEVIATION [QRS AXIS < -30] LOW QRS VOLTAGE IN PRECORDIAL LEADS [QRS DEFLECTION < 1.0 mV IN CHEST LEADS] POSSIBLE RIGHT VENTRICULAR CONDUCTION DELAY [RSR (QR) IN V1/V2] MODERATE ST DEPRESSION [0.05+ mV ST DEPRESSION] ABNORMAL ECG Electronically signed by : TERRENCE COLON, 08/20/2024 07:04:10
--- NOTE | 2024-08-17 09:49 | PC.NURSE ---
dr dougherty at bedside
--- NOTE | 2024-08-17 09:49 | PC.NURSE ---
Dr. Westbrook is at BS for pt eval; family at BS
[2024-08-17 09:56] LABS: Basophils # 0.1 K/mm3 (0-0.2); Basophils % 0.7 % (0.1-2.0); Eosinophils # 0.3 Kmm3 (0.0-0.4); Eosinophils % 2.7 % (0.1-12.0); Hematocrit 47.5 % (37.0-47.0); Hemoglobin 15.5 g/dL (12.2-16.2); Immature Granulocytes # 0.05 10^3uL; Immature Granulocytes % 0.5 %; Lymphocytes # 2.7 K/mm3 (0.7-4.5); Lymphocytes % 25.2 % (10-50); Mean Corpuscular HGB Conc 32.6 g/dL (31.8-35.4); Mean Corpuscular Hemoglobin 27.7 pg (27.0-31.2); Mean Corpuscular Volume 84.8 fl (81-99); Mean Platelet Volume 11.2 fl (7.4-10.4); Monocytes # 0.6 K/mm3 (0.1-1.0); Monocytes % 5.2 % (1.7-9.3); Neutrophils # 7.1 K/mm3 (1.8-7.8); Neutrophils % 65.7 % (37.0-80.0); Nucleated Red Blood Cells # 0 10^3/uL; Nucleated Red Blood Cells % 0 %; Platelet Count 333 K/mm3 (142-424); Red Cell Distribution Width 14.6 % (11.5-17.5); Red Cell Distribution Width-SD 44.6 fL; White Blood Count 10.8 K/mm3 (4.8-10.8)
[2024-08-17] MEDS: ASPIRIN 81MG CHEWABLE TABLET 324 MG PO (09:56)
[2024-08-17 09:57] LABS: Albumin Level 4.5 g/dl (3.5-5.0); Chloride 103 mmol/L (98-107); Sodium 138 mmol/L (136-145)
--- NOTE | 2024-08-17 09:59 | XR_ITS ---
FINAL REPORT CLINICAL HISTORY: L sided cp and n/v/diaphoresis COMPARISON: None FINDINGS: The heart size is normal. The mediastinum is normal. There is no focal infiltrate or edema. There are no pleural effusions. There is no pneumothorax. There is no osseous abnormality. IMPRESSION: No acute cardiopulmonary process Reviewed, Interpreted and Dictated by Gianluca Parekh MD Transcribed by Violeta Vu Authenticated and [facility]
[2024-08-17 10:00] LABS: Alanine Aminotransferase 27 U/L (12-78); Albumin/Globulin Ratio 1.6 (1.1-1.8); Alkaline Phosphatase 137 U/L (38-126); Aspartate Amino Transferase 31 U/L (14-36); Bilirubin,Total 0.5 mg/dl (0.2-1.3); Blood Urea Nitrogen 8 mg/dl (7-17); Carbon Dioxide 28 mmol/L (22.0-30.0); Creatinine Clearance Estimated 180 mL/min (50-200); Estimated Glomerular Filt Rate 128 ml/min (>60); GFR (African American) 154 ML/MIN (>60); Globulin 2.9 g/dL (1.3-3.2); Lipase 52 U/L (23-300); Total Protein,Serum 7.4 g/dl (6.3-8.2)
[2024-08-17 10:01] LABS: Glucose 140 mg/dl (74-100)
--- OUTSIDE RECORDS SUMMARY | 2024-08-17 10:05 | XMS_ITS | Encounter Summary ---
Author Organization [facility] [place] [address] Care Team Providers Care Dice Person Name Role Phone Albaro Fields MD Primary Care Provider [phone] Encounter Details Date Type Department Care Team (Latest Contact Info) Description 07/04/2024 Travel Social History Tobacco Use Types Packs/Day Years [...] AM EDT Office Visit [facility] [address] [facility] [address] [place] [address] Hair Villagomez PA-C [address] [place] [address] documented as of this encounter Visit Diagnoses Not on filedocumented in this encounter Care Teams Dice Person Relationship Specialty Start Date End Date Albaro Fields MD PCP - General Family Medicine 05/08/13 documented as of this encounter
--- OUTSIDE RECORDS SUMMARY | 2024-08-17 10:05 | XMS_ITS | Encounter Summary ---
Author Organization [facility] Address [address] [place] [address] Care Team Providers Care Sheep Killer Name Role Phone Albaro Fields MD Primary Care Provider [phone] Encounter Details Date Type Department Care Team (Late st Contact Info) Description 08/09/2024 Plan of Care Documentation [facility] [address] [facility] [address] [place], [place] [id number] Social History Tobacco Use Types Packs/Day Years [...] on file documented as of this encounter Miscellaneous Notes * Therapist Plan of Care - Bela Mccormick, PT - 08/09/2024 11:26 AM EDT Images from the original note were not included. Please sign to acknowledge agreement with this updated plan of care. Physical Therapy Evaluation 08/09/2024 Kathy Chua : [...] went back to work. Approximately one week later she woke with significant edema and difficulty walking. She went to the ER and was diagnosed with a sprain. She was provided a boot to wear however she was not able to wear this to work so she just wrapped it in an maico wrap. She then rolled it again which [facility] She was evaluated by Dr Boston and an [...] Date Strength Left Right Left Right DF 5/07 09/ PF 4+/5 5/5 EV 4/5 5/5 INV [...] 40' 1 E, 1 TE HEP ID: [id number] Treatment today included: Timed Units: Therapeutic exercise: [...] allow for improved function in the home. 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 Pt advised to call with questions or concerns. Treatment to include therapeutic exercise, neuromuscular reeducation, manual therapy, therapeutic activity, gait training, vasopneumatic pump, and electrical stimulation. Signature: Bela Mccormick PT Date: 08/09/2024 [place] License: [id number] documented in this encounter Plan of Treatment Upcoming Encounters Date Type Department Care Team (Late st Contact Info) Description 08/30/2024 10:30 AM EDT Office Visit [facility] [address] [facility] [address] [place] [address] Hair Villagomez PA-C [address] [place] [address] documented as of this encounter Visit Diagnoses Not on filedocumented in this encounter Care Teams Sheep Killer Relationship Specialty Start Date End Date Albaro Fields MD PCP - General Family Medicine 05/08/13 documented as of this encounter
--- OUTSIDE RECORDS SUMMARY | 2024-08-17 10:05 | XMS_ITS | Encounter Summary ---
Author Organization [facility] Address [address] [place] [address] Care Team Providers Care Fish Machine Feeder Name Role Phone Pcp, No Primary Care Provider Unavailabl e Encounter Details Date Type Department Care Team (Latest Contact Info) Description 08/22/2023 Community Orders [facility] [address] [place] [address] Albaro Fields MD [address] [place] [address] Fibromyalgia (Primary Dx) Social History Tobacco Use Types Packs/Day Years Used Date Smoking Tobacco: Never Assessed Comments Unknown Sex and Gender Information Value Date Recorded Sex Assigned at Not on file Legal Sex Female 11:12 AM EDT Gender Identity Not on file Sexual Orientation Not on file documented as of this encounter Plan of Treatment Not on file documented as of this encounter Visit Diagnoses Diagnosis Fibromyalgia- Primary Unspecified myalgia and myositis documented in this encounter Care Teams Fish Machine Feeder Relationship Specialty Start Date End Date Pcp, So [address] [place] [address] PCP - General Family Medicine 06/14/24 documented as of this encounter
--- OUTSIDE RECORDS SUMMARY | 2024-08-17 10:05 | XMS_ITS | Clinical Summary ---
Author Organization [facility] Address [address] [place] [address] Care Team Providers Care Diamond Assorter Name Role Phone Pcp, No Primary Care Provider Unavailabl e Encounters * This document contains information received from the source organization and may not represent a complete record from that organization. Date Type Department Care Team Description 06/14/2024 Travel from Last 3 Months Social History Tobacco Use Types Packs/Day Years Used Date Smoking Tobacco: Never Assessed Comments Unknown Sex and Gender Information Value Date Recorded Sex Assigned at Not on file Legal Sex Female 11:12 AM EDT Gender Identity Not on file Sexual Orientation Not on file Plan of Treatment Health Maintenance Due Date Last Done Comments [facility]-Depression Screening 1965 [facility]-HIV Screening 1965 [facility]-Hepatitis C Screening 1965 [facility]-Infant/Child/Adol SDOH Screenings 1965 [facility]- SDOH Screenings 09/13/1985 [facility]-Adult SDOH Screenings 09/13/1985 [facility]-DTaP,Tdap,and Td Vaccine s (1 - Tdap) 09/13/1986 [facility]-Hepatitis B Vaccines (1 of 3 - 19+ 3-dose series) 09/13/1986 [facility]-Pap Smear 09/13/1988 [facility]-Cervical Cancer Screening 09/13/1997 [facility]-HPV/Cotest 09/13/1997 CT Colonography 09/13/2012 Colonoscopy 09/13/2012 FIT-DNA 09/13/2012 FIT 09/13/2012 FOBT 09/13/2012 Sigmoidoscopy 09/13/2012 [facility]-Colorectal Cancer Screening 09/13/2012 [facility]-Breast Cancer Screening 09/13/2017 [facility]-Pneumococcal Vaccine: 50 + Years (2 of 2 - PCV) 09/13/2017 01/22/2013 [facility]-Zoster Vaccines (1 of 2) 09/13/2017 [id number] Vaccine ( season) 2023 [facility]-Influenza Vaccine (Seas[place] n Ended) 2024 01/08/2015, 01/22/2013 HPV Vaccines Aged Out No longer eligi ble based on patient's age to complete this topic [facility]-HIB Vaccines Aged Out No longer e ligible based on patient's age to complete this topic [facility]-Hepatitis A Vaccines Aged Out No longer eligible based on patient's age to complete this topic [facility]-IPV Vaccines Aged Out No longer e ligible based on patient's age to complete this topic [facility]-Rotavirus Vaccines Aged Out No lo nger eligible based on patient's age to complete this topic Insurance [employer] Care Teams Diamond Assorter Relationship Specialty Start Date End Date Pcp, [place] [address] [place] [address] PCP - General Family Medicine 06/14/24
--- OUTSIDE RECORDS SUMMARY | 2024-08-17 10:05 | XMS_ITS | Data Portability ---
Author Organization [facility] Address [address] [place] [address] Care Team Providers Care D[employer] Supervisor Name Role Phone ALBARO FIELDS Primary Care Provider Assessment Encounter Date Assessment Date Assessment LastModified by Organization Details LastModified Time 01/07/2017 01/07/2017 Productive cough Clear phlegm Rib pain from coughing URI Clear fluid behind both ears Upper airway inflamed Diminished air movement Nicotine dependence Smoking cessation discussed at length Fibromyalgia Hydrocodone 7.5 mg -acetaminophen 325 mg 1/2-1 po q 24 hrs pain Patient refused Pneumovax 23 and Flu vaccination [email or web address] Not available 01/07/2017 09:47:38 02/07/2017 02/07/2017 Hospital follow up from Feb.04 Strep test negative at hospital Fever and chills Cough Crackles left base Pneumonia Rx Medrol dose pack Levaquin 500 mg 1 po qd x 10 days Rocephin 1 gram Depo Medrol 120 mg IM [email or web address] Not available 02/07/2017 12:26:19 04/08/2017 04/08/2017 Bilateral foot pain Has seen podiatry for plantar fasciitis Reflexes normal New job wearing steel toed boots,lots of walking,standin g on concrete all day. Tendinitis Rx Prednisone 20 mg 2 tablets po qd x 7 days then 1 po qd x 7 days Depo Medrol 120 mg IM Smoking cessation discussed at length . Fibromyalgia Refill Hydrocodone 7.5 mg -acetaminophen 325 mg 1 po qd prn #20 No signs or symptoms of adverse effects noted [email or web address] Not available 04/08/2017 11:49:56 04/11/2017 04/11/2017 Bilateral foot pain Difficulty walking Plantar fasciitis Appt. scheduled with on 04/26/17 Toradol 60 mg IM Rx Prednisone 20 mg 2 tablets po qd x 7 days then 1 po qd x 7 days Rx Indomethacin 50 mg 1 po q 12-24 hrs prn Xray foot [email or web address] Not available 04/13/2017 14:14:52 Plan of Treatment Reminders Order Date Submit Date Provider Last Modified By Organization Details Last Modified Time Details Appointments None recorde d. Lab None recorde d. Referral None recorde d. Procedures None recorde d. Surgeries None recorde d. Imaging XR, foot, 3 or more view 2017 018 JULIA Not available 8 13:37:06 XR, chest, 2 view 2017 018 [facility], [address] [place] [address] , [place], [address], 8 08:39:28 Medication Orders ketorol ac 60 mg/2 mL intramu scular solutio n 2017 018 Not available 8 18:04:31 prednis one 20 mg tablet 2017 018 [facility], [address] [place], [address], 8 18:01:44 indomet hacin 50 mg capsule 2017 018 [facility], [address] [place], [address], 8 18:01:44 prednis one 20 mg tablet 2017 018 [facility], [address] [place] [address], [id number], 8 12:30:50 Depo-Me drol 40 mg/mL suspens ion for injecti on 2017 018 [email or web address] Not available 8 18:04:38 Depo-Me drol 80 mg/mL suspens ion for injecti on 2017 018 Not available 8 18:04:42 hydroco done 7.5 mg-acet aminoph en 325 mg tablet 2017 018 [facility], [address] [place] [address], [id number], 8 11:34:06 Medrol (Nabil) 4 mg tablets in a dose pack 2017 018 [email or web address], [address] [place] [address], [id number], 8 10:27:34 ibuprof en 800 mg tablet 2017 018 [facility], [address] [place] [address], [address], 8 16:24:25 Levaqui n 500 mg tablet 2016 017 [email or web address] [facility], [address] [place] [address], [address], 8 16:14:31 Medrol (Nabil) 4 mg tablets in a dose pack 2016 017 [place] [address] [facility], [address] [place] [address], [address], 8 10:27:34 ceftria xone 1 gram solutio n for injecti on 2016 017 [email or web address] Not available 8 16:14:04 Depo-Me drol 80 mg/mL suspens ion for injecti on 2016 017 [email or web address] Not available 8 18:04:42 Depo-Me drol 40 mg/mL suspens ion for injecti on 2016 017 [email or web address] Not available 8 18:04:38 hydroco done 7.5 mg-acet aminoph en 325 mg tablet 2016 017 [email or web address] [facility], [address] [place] [address], [place], [address], 7 09:33:35 Depo-Me drol 80 mg/mL suspens ion for injecti on 2016 017 [email or web address] Not available 8 18:04:42 Depo-Me drol 40 mg/mL suspens ion for injecti on 2016 017 [email or web address] Not available 8 18:04:38 Patient TargetsNo targets recorded. Patient Instructions Encounter Date Encounter Id Patient Instructions Last Modified By Organization Details Last Modified Time 01/07/2017 [id number] Quitting Tobacco : Care Instructions [email or web address] Not available 01/11/2017 08:27:28 smoking cessatio n counseling, greater than 3 minutes up to 10 minutes* [email or web address] Not available 01/14/2017 07:52:57 cough: care instructions sneus Not available 01/11/2017 08:27:28 upper respirator y infection (cold): care instructions sneus Not available 01/11/2017 08:27:28 A healthy lifestyle: care instructions sneus Not available 01/11/2017 08:27:28 02/07/2017 [id number] Quitting Tobacco : Care Instructions [email or web address] Not available 02/07/2017 13:09:30 pneumonia: care instructions [email or web address] Not available 02/07/2017 13:09:30 learning about fever [email or web address] Not available 02/07/2017 13:09:29 cough: care instructions [email or web address] Not available 02/07/2017 13:09:29 chronic obstructive pulmonary disease (COPD): care instructions [email or web address] Not available 02/07/2017 13:09:29 learning about copd and how to prevent lung infections [email or web address] Not available 02/07/2017 13:09:29 03/09/2017 [id number] Quitting Tobacco : Care Instructions [email or web address] Not available 03/09/2017 16:34:11 smoking cessatio n counseling, greater than 3 minutes up to 10 minutes* [email or web address] Not available 04/29/2017 10:50:06 pleurisy: care instructions [email or web address] Not available 03/09/2017 16:23:28 rtc in 3-4 days if s/sx worsen or persist otherwise fu with dr fields as scheduled [email or web address] Not available 03/09/2017 16:32:03 04/08/2017 [id number] tendon injury (tendinopathy): care instructions sneus Not available 04/08/2017 12:30:50 Quitting Tobacco : Care Instructions sneus Not available 04/08/2017 12:30:50 smoking cessatio n counseling, greater than 3 minutes up to 10 minutes* [email or web address] Not available 04/15/2017 10:40:32 chronic obstructive pulmonary disease (COPD): care instructions sneus Not available 04/08/2017 12:30:50 learning about copd and how to prevent lung infections sneus Not available 04/08/2017 12:30:50 A healthy lifestyle: care instructions sneus Not available 04/08/2017 12:30:50 04/11/2017 [id number] plantar fasciitis: care instructions sneus Not available 04/11/2017 17:31:49 plantar fasciitis: exercises sneus Not available 04/11/2017 17:31:49 chronic obstructive pulmonary disease (COPD): care instructions sneus Not available 04/11/2017 17:31:49 learning about copd and how to prevent lung infections sneus Not available 04/11/2017 17:31:49 Reason for Referral None Reported. Results Created Date Observation Date Name Description Value Unit Range Abnormal Flag Note LastModifiedBy Organization Detail LastModifiedTime 04/12/19 18 04/12/2017 XR, foot, 3 or more view No observ ation record ed. [email or web address] Not Available 09/2017 14:12:01 Result Notes None recorded. Problems Name Problem SNOMED Code Status Onset Date Resolution Date Notes Provider Name and Address Organization Details Recorded Time Nicotine dependence 42774630 Active 2016 Magda Bolaños in [facility] 7 15:37:11 Plantar fasciitis 233040025 Active 2017 Magda Bolaños in [facility] 8 11:20:35 Chronic obstructive pulmonary disease 52373541 Active 2016 Sonia Selby [facility] 7 11:48:57 Fibromyalgi a 299890173 Active 2016 SUE Zee [facility] 7 11:49:06 Vitamin D deficiency 15163180 Active 2016 SUE Zee [facility] 7 11:49:15 Major depressive disorder 919028399 Active 2016 SUE Zee [facility] 7 11:49:28 Rheumatoid arthritis 46476868 Completed 201603/24/2016 SUE Connolly [facility] 7 19:00:23 Obstructive sleep apnea syndrome 53118714 Active 2016 bipap SUE Zee [facility] 7 11:49:57 Insomnia 462420591 Active 2016 SUE Zee [facility] 7 11:50:17 Renewal of prescriptio n Active 2016 SUE Zee [facility] 7 09:52:39 Problem Notes None recorded. Procedures Surgical History Date Name Laterality Status Provider Name and Address Organization Details Recorded Time Knee arthroscopy/surg sachi completed Sonia Selby [facility] 03/24/2016 11:55:59 Breast Lumpectomy completed Sonia Selby [facility] 03/24/2016 11:56:46 Lysis of labial adhesions completed Sonia Selby [facility] 03/24/2016 11:57:06 Hysterectomy, Total Abdominal completed Sonia ROGERS [facility] 03/24/19 17 11:57:18 Imaging Results None recorded. Procedure Notes None recorded. Medical Equipment None Reported. Allergies Allergen ID Allergen Name Allergen Category Reaction Reaction Severity Criticality Documentation Date Start Date Code Code System Note Provider Name and Address Organization Details Recorded Time 54595 Buspar medicatio n Not available Not available Not available 12/12/20152007 99926 0 RxNorm React ion: Menta l distu rbsnc e; Comme nt: dk r; Not Available [facility] 6 08:53:24 Medications Name Sig Start Date Stop Date Status Note LastModified by Organization Details LastModified Time Prescript ion - Renewal active RX Not Available Not Available Not Available cyclobenz aprine 10 mg tablet take 1 tablet by oral route 3 times a day as needed 01/07 completed Not Available Not Available Not Available Augmentin 875 mg-125 mg tablet take 1 tablet by oral route 2 times a day for 10 days 05/08 completed Augmenti n 875-125 mg oral tablet;P rescribe Status: Prescrib ed on: 03/10/19 16 7:06PM;D iscontin ued Status: Disconti nued on: 05/09/19 16 5:51PM;U ser: neuss;Es t. Completi on: 03/20/19 16;Indic ation: Acute serous otitis media of left ear, recurren ce not specifie d - (381.01) ;Pharmac yVerifie d: 03/10/19 16 7:06PM Not Available Not Available Not Available Bromfed DM 2 mg-30 mg-10 mg/5 mL oral syrup take 10 millilit ers by oral route every 4 hours prn 01/27 completed Bromfed DM 2-30-10 mg/5 mL oral syrup;Re corded Status: Recorded on: 01/27/20 11 6:27PM;D iscontin ued Status: Disconti nued on: 01/28/20 11 10:43AM; User: nunu Chun Completi on: 02/06/20 11;Indic ation: Cold Symptoms - (08.4600 00);Prin krysta: 01/27/20 11 Not Available Not Available Not Available nicotine 14 mg/24 hr daily transderm al patch apply 1 patch (14 mg) by transder mal route once daily and remove at bedtime 01/07 completed Not Available Not Available Not Available Depo-Medr ol 40 mg/mL suspensio n for injection one time only 05/04 completed Not Available Not Available Not Available albuterol sulfate 2.5 mg/3 mL (0.083 %) solution for nebulizat ion inhale 3 millilit ers (2.5 mg) by nebuliza tion route every 6 hours 05/08 completed albutero l sulfate 2.5 mg /3 mL (0.083 %) inhalati on solution for nebuliza tion;Rec orded Status: Recorded on: 04/09/19 16 5:10PM;U ser: neuss;Es t. Completi on: 05/09/19 16;Indic ation: Bronchos pasm Preventi on - () Not Available Not Available Not Available ibuprofen 800 mg tablet Take 1 tablet 3 times a day by oral route. active Not Available Not Available No t Available Vicodin 5 mg-500 mg tablet take 1 tablet by oral route every 4-6 hours as needed for pain 10/28 completed Vicodin 5-500 mg oral tablet;R ecorded Status: Recorded on: 08/23/19 10 4:39PM;D iscontin ued Status: Disconti nued on: 10/29/19 10 3:29PM;U ser: youngk;I ndicatio n: Pain - () Not Available Not Available Not Available clarithro mycin 500 mg tablet Take 1 tablet every 12 hours by oral route. 09/24 completed Not Available Not Available Not Available hydrocodo ne 5 mg-acetam inophen 325 mg tablet 09/24 completed Not Available Not Available Not Available meloxicam 15 mg tablet take 1 tablet (15 mg) by oral route once daily prn with food 01/07 completed Not Available Not Available Not Available prednison e 20 mg tablet take 2 tablets (40 mg) by oral route once daily x 7 days and 1 tab qd x 7days 2017 active Not Available Not Available Not Avai lable sertralin e 100 mg tablet take 1 tablet (100 mg) by oral route once daily 01/20 completed sertrali ne 100 mg oral tablet;R ecorded Status: Recorded on: 07/25/19 15 5:01PM;U ser: neuss;Es t. Completi on: 01/21/20 15;Indic ation: Panic Disorder - () Not Available Not Available Not Available clobetaso l 0.05 % topical cream APPLY A THIN LAYER TO THE AFFECTED AREA(S) BY TOPICAL ROUTE once daily use sparingl y 01/07 completed Not Available Not Available Not Available Maxalt 10 mg tablet take 1 tablet (10 mg) by oral route x 1 dose, may repeat at 2 hour interval s; do not exceed 30 mg in 24 hours 07/30 completed Maxalt 10 mg oral tablet;R ecorded Status: Recorded on: 02/08/20 08 2:25PM;D iscontin ued Status: Disconti nued on: 07/31/19 10 2:18PM;U ser: grossert ;Est. Completi on: 02/14/20 08;Indic ation: Migraine - (3469 );Prin krysta: 02/08/20 08 Not Available Not Available Not Available Zithromax Z-Nabil 250 mg tablet take 2 tablets (500 mg) by oral route once daily for 1 day then 1 tablet (250 mg) by oral route once daily for 4 days 03/24 completed Zithroma x Z-Nabil 250 mg oral tablet;R ecorded Status: Recorded on: 02/08/20 08 2:25PM;D iscontin ued Status: Disconti nued on: 07/31/19 10 2:18PM;U ser: grossert ;Est. Completi on: 02/28/20 08;Print ed: 02/08/20 08 Not Available Not Available Not Available promethaz ine 6.25 mg-codein e 10 mg/5 mL syrup take 5 millilit ers by oral route every 6 hours as needed, not to exceed 30 mL in 24 hours for 10 days 09/24 completed Not Available Not Available Not Available penicilli n V potassium 500 mg tablet 09/24 completed Not Available Not Available Not Available ciproflox acin 500 mg tablet take 1 tablet (500 mg) by oral route 2 times per day for 10 days 09/16 completed ciproflo xacin HCl 500 mg oral tablet;R ecorded Status: Recorded on: 07/31/19 10 2:32PM;D iscontin ued Status: Disconti nued on: 09/17/19 10 2:06PM;U ser: kevinw; Est. Completi on: 08/10/19 10;Print ed: 07/31/19 10 Not Available Not Available Not Available Terazol 3 0.8 % vaginal cream insert 1 applicat orful by vaginal route once daily at bedtime for 3 days 10/28 completed Terazol 3 0.8 % vaginal cream;Re corded Status: Recorded on: 09/17/19 10 2:42PM;D iscontin ued Status: Disconti nued on: 10/29/19 10 2:21PM;U ser: youngk;E st. Completi on: 09/20/19 10;Indic ation: Vulvovag inal Candidia sis - () Not Available Not Available Not Available sulfameth oxazole 800 mg-trimet hoprim 160 mg tablet 09/24 completed Not Available Not Available Not Available tramadol 50 mg tablet take 1 tablet (50 mg) by oral route every 6 hours as needed for 30 days 10/28 completed tramadol 50 mg oral tablet;R ecorded Status: Recorded on: 09/17/19 10 2:42PM;D iscontin ued Status: Disconti nued on: 10/29/19 10 3:29PM;U ser: youngk;E st. Completi on: 10/17/19 10 Not Available Not Available Not Available Depo-Medr ol 80 mg/mL suspensio n for injection one time only 05/04 completed Not Available Not Available Not Available Bentyl 20 mg tablet take 1 tablet (20 mg) by oral route 3 times per day for 10 days 04/18 completed Bentyl 20 mg oral tablet;R ecorded Status: Recorded on: 12/29/19 12 8:17PM;D iscontin ued Status: Disconti nued on: 04/18/19 13 4:08PM;U ser: neuss;Es t. Completi on: 01/07/20 12;Indic ation: Abdomina l Pain, RUQ--wit h radiatin g pain into back - (789.01) Not Available Not Available Not Available ceftriaxo ne 1 gram solution for injection one time only 03/09 completed Not Available Not Available Not Available Flagyl 500 mg tablet take 1 tablet (500 mg) by oral route 3 times per day for 10 days 09/16 completed Flagyl 500 mg oral tablet;R ecorded Status: Recorded on: 07/31/19 10 2:32PM;D iscontin ued Status: Disconti nued on: 09/17/19 10 2:06PM;U ser: [email or web address]; Est. Completi on: 08/10/19 10;Print ed: 07/31/19 10 Not Available Not Available Not Available hydrocodo ne 7.5 mg-acetam inophen 325 mg tablet take 1 tablet by oral route Q 24H PRN Severe pain 2017 active hydrocod one-acet aminophe n 7.5-325 mg oral tablet;R ecorded Status: Recorded on: 04/22/19 16 2:48PM;U ser: neuss;Es t. Completi on: 05/22/19 16 Not Available Not Available Not Available pantopraz ole 40 mg tablet,de layed release take 1 tablet (40 mg) by oral route once daily 10/18 completed pantopra zole 40 mg oral tablet,d elayed release (/EC); Recorded Status: Recorded on: 12/29/19 12 8:17PM;D iscontin ued Status: Disconti nued on: 10/19/19 13 5:37PM;U ser: neuss;Es t. Completi on: 06/26/19 13;Indic ation: Gastroes ophageal Reflux - (.5308 10) Not Available Not Available Not Available oseltamiv ir 75 mg capsule 01/07 completed Not Available Not Available Not Available hydrocodo ne 7.5 mg-acetam inophen 750 mg tablet take 1 tablet by oral route Q12-24H PRN 06/13 completed hydrocod one-acet aminophe n 7.5-750 mg oral tablet;R ecorded Status: Recorded on: 01/23/20 13 7:29PM;D iscontin ued Status: Disconti nued on: 06/14/19 14 6:08PM;U ser: neuss;Es t. Completi on: 02/22/20 13;Indic ation: Pain - (16.7809 00) Not Available Not Available Not Available Robaxin-7 50 750 mg tablet take 1 tablet (750 mg) by oral route every 6 hrs prn 09/03 completed Robaxin- 750 750 mg oral tablet;R ecorded Status: Recorded on: 07/03/19 11 4:04PM;D iscontin ued Status: Disconti nued on: 09/04/19 11 3:04PM;U ser: guttmann ;Est. Completi on: 07/13/19 11;Indic ation: Muscle Spasm - (13.7288 50);Prin krysta: 07/03/19 11 Not Available Not Available Not Available promethaz ine 25 mg tablet take 1 tablet by oral route Q4-6 PRN n/v 12/06 completed prometha zine 25 mg oral tablet;R ecorded Status: Recorded on: 10/24/19 11 9:23AM;D iscontin ued Status: Disconti nued on: 12/07/19 12 7:39PM;U ser: guttmann ;Est. Completi on: 10/29/19 11;Indic ation: Nausea and Vomiting - (16.7870 10);Prin krysta: 10/24/19 11 Not Available Not Available Not Available Lamictal 100 mg tablet take 1 tablet (100 mg) by oral route 2 times per day 07/06 completed Lamictal 100 mg oral tablet;R ecorded Status: Recorded on: 01/09/20 15 2:14PM;U ser: neuss;Es t. Completi on: 07/07/19 16 Not Available Not Available Not Available indometha meredith 50 mg capsule take 1 capsule by oral route every 12-24 hours prn pain active Not Available Not Available No t Available nicotine 21 mg/24 hr daily transderm al patch apply 1 patch (21 mg) by transder mal route once daily 01/07 completed Not Available Not Available Not Available Xenical 120 mg capsule take 1 capsule (120 mg) by oral route 3 times per day with each main meal containi ng fat for 30 days 11/04 completed Xenical 120 mg oral capsule; Recorded Status: Recorded on: 05/09/19 16 6:20PM;U ser: neuss;Es t. Completi on: 11/05/19 16;Indic ation: Weight Loss Manageme nt for Obese Patient (BMI >= 30) - (03.2780 ) Not Available Not Available Not Available gabapenti n 300 mg capsule take 1 capsule (300 mg) by oral route 1 qd for 4 days, then 1 bid for 4 days, then 3 times per day 12/06 completed gabapent in 300 mg oral capsule; comment: not taking;R ecorded Status: Recorded on: 10/30/19 11 3:09PM;D iscontin ued Status: Disconti nued on: 12/07/19 12 7:39PM;U ser: guttmann ;Est. Completi on: 04/27/19 12;Print ed: 10/30/19 11 Not Available Not Available Not Available diclofena c sodium 75 mg tablet,de layed release take 1 tablet (75 mg) by oral route 2 times per day with food active Not Available Not Available No t Available lorazepam 1 mg tablet take 0.5-1 tablet by oral route QD-BID prn 08/23 completed lorazepa m 1 mg oral tablet;R ecorded Status: Recorded on: 07/25/19 15 5:01PM;U ser: neuss;Es t. Completi on: 08/24/19 15;Indic ation: Anxiety - () Not Available Not Available Not Available Nasonex 50 mcg/actua tion [place] spray 2 sprays in each nostril by intranas al route once daily for 30 days 04/18 completed Nasonex 50 mcg/actu ation nasal spray,no n-aeroso l;Record ed Status: Recorded on: 10/30/19 11 3:10PM;D iscontin ued Status: Disconti nued on: 04/18/19 13 4:08PM;U ser: guttmann ;Est. Completi on: 04/27/19 12;Indic ation: Allergic Rhinitis - ();Prin krysta: 10/30/19 11 Not Available Not Available Not Available levofloxa meredith 500 mg tablet Take 1 tablet every 24 hours by oral route for 10 days. 03/09 completed Not Available Not Available Not Available methylpre dnisolone 4 mg tablets in a dose pack take as directed for 6 days 04/08 completed Not Available Not Available Not Available Tessalon 200 mg capsule take 1 capsule (200 mg) by oral route 3 times per day as needed for 7 days 07/30 completed Tessalon 200 mg oral capsule; Recorded Status: Recorded on: 02/08/20 08 2:25PM;D iscontin ued Status: Disconti nued on: 07/31/19 10 2:18PM;U ser: grossert ;Est. Completi on: 03/07/19 09;Indic ation: Cough - (16.7862 00);Prin krysta: 02/08/20 08 Not Available Not Available Not Available Vitamin D2 1,250 mcg (50,000 unit) capsule take 1 capsule (50,000 unit) by oral route once weekly for 30 days 12/06 completed Vitamin D2 50,000 unit oral capsule; comment: not taking;R ecorded Status: Recorded on: 09/09/19 11 4:38PM;D iscontin ued Status: Disconti nued on: 12/07/19 12 7:39PM;U ser: nunu ;Est. Completi on: 03/07/19 12;Indic ation: Vitamin D Deficien cy - (03.2689 00) Not Available Not Available Not Available ketorolac 60 mg/2 mL intramusc ular solution one time only 05/04 completed Not Available Not Available Not Available Naprosyn 500 mg tablet take 1 tablet (500 mg) by oral route 2 times per day with food 05/08 completed Naprosyn 500 mg oral tablet;R ecorded Status: Recorded on: 09/15/19 14 8:17PM;D iscontin ued Status: Disconti nued on: 05/09/19 16 5:51PM;U ser: neuss;Es t. Completi on: 11/14/19 14;Indic ation: Osteoart hritis - (13.7159 00) Not Available Not Available Not Available Percocet 5 mg-325 mg tablet tid prn pain 06/13 completed percocet 5/325;Re corded Status: Recorded on: 02/13/20 13 3:38PM;D iscontin ued Status: Disconti nued on: 06/14/19 14 6:08PM;U ser: neuss;In dication : - (-5) Not Available Not Available Not Available Hydrocodo ne W/Acetami nophen 500 mg-5 mg capsule 1po q 12 hours prn arthriti c pain 07/30 completed Replaced /Retired Drug 500-5 mg oral capsule; Recorded Status: Recorded on: 12/09/19 08 10:03PM; Disconti nued Status: Disconti nued on: 07/31/19 10 2:18PM;U ser: [email or web address] Not Available Not Available Not Available azithromy meredith 500 mg tablet Take 1 tablet every day by oral route for 3 days. 01/07 completed Not Available Not Available Not Available Cymbalta 60 mg capsule,d elayed release take 1 capsule (60 mg) by oral route once daily for 30 days 12/06 completed Cymbalta 60 mg oral capsule, delayed release( /EC);c omment: not taking;R ecorded Status: Recorded on: 09/18/19 11 11:35AM; Disconti nued Status: Disconti nued on: 12/07/19 12 7:39PM;U ser: guttmann ;Est. Completi on: 11/17/19 11;Indic ation: Fibromya lgia - (13.7291 02);Prin krysta: 09/18/19 11 Not Available Not Available Not Available Lyrica 100 mg capsule take 1 capsules (200 mg) by oral route 2 times per day 10/24 completed Lyrica 100 mg oral capsule; Recorded Status: Recorded on: 10/19/19 13 6:16PM;D iscontin ued Status: Disconti nued on: 10/25/19 13 9:23AM;U ser: neuss;Es t. Completi on: 01/17/20 13;Indic ation: Fibromya lgia - (13.7291 02) Not Available Not Available Not Available Enjuvia 0.625 mg tablet take 1 tablet (0.625 mg) by oral route once daily 12/17 completed Enjuvia 0.625 mg oral tablet;R ecorded Status: Recorded on: 12/18/19 10 3:26PM;D iscontin ued Status: Disconti nued on: 12/18/19 10 3:39PM;U ser: granth Not Available Not Available Not Available ProAir HFA 90 mcg/actua tion aerosol inhaler INHALE 2 PUFFS EVERY 4 HOURS NEEDED FOR COUGH/WH EEZING. active Not Available Not Available No t Available Celebrex 50 mg capsule 1 po qd 07/30 completed Celebrex 50 mg oral capsule; Recorded Status: Recorded on: 12/09/19 08 10:03PM; Disconti nued Status: Disconti nued on: 07/31/19 10 2:18PM;U ser: [email or web address] Not Available Not Available Not Available Erlin DM 3 mg-50 mg-30 mg/5 mL oral liquid take 5 millilit ers by oral route every 6 hours for 5 days 12/06 completed Erlin DM 3-50-30 mg/5 mL oral liquid;R ecorded Status: Recorded on: 01/28/20 11 10:43AM; Disconti nued Status: Disconti nued on: 12/07/19 12 7:39PM;U ser: [email or web address]; Alisha. Completi on: 02/02/20 11 Not Available Not Available Not Available Vitals Date Recorded Body height Body mass index (BMI) Body weight Body temperature Heart rate Oxygen saturation Oxygen saturation in Arterial blood by Pulse oximetry Respiratory rate Systolic blood pressure Diastolic blood pressure Provider Name and Address Organization Details Last Updated DateTime 8 165.1 cm 32.3 kg/m2 85030.0 2 g 98.1 [degF] 104 /min 97 % 97 % 20 /min 122 mm[Hg] 82 mm[Hg] Arabella Walsh [place] - [facility] 8 16:13:50 Date Recorded Body height Body mass index (BMI) Body weight Heart rate Oxygen saturation Oxygen saturation in Arterial blood by Pulse oximetry Respiratory rate Body temperature Systolic blood pressure Diastolic blood pressure Provider Name and Address Organization Details Last Updated DateTime 8 165.1 cm 33.1 kg/m2 41083.8 8 g 77 /min 95 % 95 % 18 /min 98.2 [degF] 124 mm[Hg] 80 mm[Hg] Crystal Leonardo [place] - [facility] 8 10:27:13 Date Recorded Body height Body mass index (BMI) Body weight Heart rate Respiratory rate Systolic blood pressure Diastolic blood pressure Provider Name and Address Organization Details Last Updated DateTime 8 165.1 cm 33.1 kg/m2 29944.8 8 g 76 /min 18 /min 120 mm[Hg] 82 mm[Hg] Albaro Fields [place] - [facility] 8 17:15:48 Date Recorded Body height Body mass index (BMI) Body weight Body temperature Heart rate Oxygen saturation Oxygen saturation in Arterial blood by Pulse oximetry Respiratory rate Systolic blood pressure Diastolic blood pressure Provider Name and Address Organization Details Last Updated DateTime 7 165.1 cm 33.3 kg/m2 96053.4 7 g 97.7 [degF] 80 /min 96 % 96 % 18 /min 120 mm[Hg] 78 mm[Hg] Crystal Leonardo [place] - [facility] 7 09:12:51 Date Recorded Body height Body mass index (BMI) Body weight Body temperature Heart rate Oxygen saturation Oxygen saturation in Arterial blood by Pulse oximetry Respiratory rate Systolic blood pressure Diastolic blood pressure Provider Name and Address Organization Details Last Updated DateTime 7 165.1 cm 33.6 kg/m2 16120.6 6 g 98.1 [degF] 91 /min 94 % 94 % 18 /min 120 mm[Hg] 80 mm[Hg] Crystal Leonardo [place] - [facility] 7 11:15:23 Social History Question Answer Notes LastModified by Organizat ion Details LastModified Time Tobacco Smoking Status Current Every Day Smoker Sonia Bright[place]do [place] - [facility] 03/24/2016 11:54:32 Which Illicit Or Recreational Drugs Have You Used? Never [email or web address] Information not available 03/24/2016 Hard Of Hearing Or Deaf In One Or Both Ears? No Information not available 03/24/2016 Legally Blind In One Or Both Eyes? No Information no t available 03/24/2016 What Was The Date Of Your Most Recent Tobacco Screening? 04/11/2017 Information not available 09/27/2018 What Is Your Relationship Status? [email or web address] Information not available 03/24/2016 Smoke Alarm In Home Yes Information not available 03/24/2016 How Many Years Have You Smoked Tobacco? 41 [email or web address] Information not available 03/24/2016 Sex: Unknown Functional Status Question Answer Note LastModified by Organization D etails LastModified Time Are you currently employed? Yes Information not available 03/24/2016 Are you able to care for yourself? Yes [email or web address] Information n ot available 03/24/2016 Mental Status None recorded. Family History Relationship Description Onset Age of this Age Resolved Age Notes LastModified by Organization Details LastModified Time Maternal Grandfather Alzheimer's disease [email or web address] Not available 2016 11:50:50 Maternal Grandfather Rheumatoid arthritis [email or web address] Not available 2016 11:51:21 Maternal Grandfather Malignant neoplasm of lung [email or web address] Not available 2016 11:52:07 Maternal Grandmother Malignant tumor of breast [email or web address] Not available 2016 11:51:37 Unspecified Relation Malignant neoplasm of liver uncle Not available 2016 11:51:54 Unspecified Relation Malignant neoplasm of uterus aunt [email or web address] Not available 2016 11:53:10 Father Malignant neoplasm of skin Not available 2016 11:52:27 Mother Hypertensive disorder uncle [email or web address] Not available 2016 11:53:27 Mother Hyperlipidem ia aunt and uncle Not available 03/24/2016 11:53:55 Medical History No medical history recorded. Gynecological HistoryNo gynecological history recorded. Obstetrics History GPAL:G 0 P 0 0 0 0 Immunizations Vaccine Type Date Status Note Provider Name and Address Organization Details Recorded Time influenza, unspecified formulation 013 completed Not Available [facility] 04/07/2019 02:21:22 influenza, unspecified formulation 015 completed Not Available [facility] 04/07/2019 02:21:22 Influenza, split virus, quadrivalent, preservative 017 cancelled patient objection Not Available [facility] 03/24/2019 03:54:43 pneumococcal polysaccharide PPV23 017 cancelled patient objection Not Available [facility] 03/24/2019 03:54:45 pneumococcal polysaccharide PPV23 013 completed Not Available [facility] 04/07/2019 02:21:58 Past Encounters Encounter ID Performer Location Encounter Start Date Encounter Closed Date Diagnosis/Indication Diagnosis SNOMED-CT Code Diagnosis ICD10 Code Diagnosis Note [id number] Albaro Fields MD [address] [place] [address] 03/24/2016 16:41:46 03/29/2016 08:54:56 Fibromyalgia 957342652 M79.7 Acute sinusitis 11615212 J01.90 [id number] Albaro Fields MD [address] [place] [place] [address] 04/07/2016 13:39:47 04/07/2016 14:56:09 Lymphadenitis 60041737 I88.9 [id number] Albaro Fields MD [address] [place] [place] [address] 09/24/2016 14:55:56 09/24/2016 16:20:08 Acute sinusitis 35290436 J01.90 Cough 52795192 R05 Nicotine dependence 5629 4008 F17.200 Contact dermatitis 30857 004 L25.9 Renewal of prescription 095439753 Z76.0 [id number] Albaro Fields MD [address] [place] [place] [address] 01/07/2017 08:55:48 01/07/2017 09:38:55 Body mass index 30+ - obesity 445723818 Z68.33 Vaccine de clined by patient 0946169768 02 Z28.20 Upper resp iratory infection 29058609 J06.9 Cough 65002294 R05 Nicotine dependence 5629 4008 F17.200 Fibromyalgia 665329134 M 79.7 [id number] Albaro Fields MD [address] [place] [place] [address] 02/07/2017 10:40:52 02/07/2017 12:37:31 Fever 898415645 R50.9 Cough 99368743 R05 Chronic ob structive pulmonary disease 61001072 J44.9 Nicotine dependence 5629 4008 F17.200 Pneumonia 922773190 J18. 9 [id number] Kesha Hercules APRN [address] [place] [address] 03/09/2017 15:55:58 03/09/2017 16:25:40 Pleurisy 126986127 R09.1 Tobacco user 937863923 Z 72.0 [id number] Albaro Fields MD [facility] [address] [place], [place] [address] [place] [address] 04/08/2017 09:54:49 04/08/2017 11:47:23 Body mass index 30+ - obesity 152195785 Z68.33 Chronic ob structive pulmonary disease 49551852 J44.9 Nicotine dependence 5629 4008 F17.200 Tendinitis 24194869 M77. 9 Fibromyalgia 584134637 M 79.7 [id number] Albaro Fields MD [facility] [address] [place], [place] [address] [place] [address] 04/11/2017 15:56:07 04/11/2017 18:49:29 Chronic obstructive pulmonary disease 84770220 J44.9 Fibromyalgia 174299958 M 79.7 Plantar fasciitis 875424 003 M72.2 Health Concerns Section Related Observation LastModified by Organization Detai ls LastModified Time None Recorded Concern Status LastModified by Organization Details LastModified Time None Recorded Advance Directives Directive None Recorded Payers Insurance Date Sequence Insurance Name Policy Number Policy Malave Covered Member ID Malave Member ID Guarantor Name 11/25/2017 1 [place] [id number] [facility] [id number] [facility] Notes Date Note Type Note Provider Name and Address Organization Details Recorded Time 01/07/2017 text/html Upper Respirator y SymptomsReported bypatient.Location:hea d; throat Quality:productive cough;colored phlegm;congested;hacki ng cough Severity:mild Duration:cannot identify (about 1 week ago); symptoms lasting over 2 weeks Onset/Timing:sudden Modifying Factors:OTC medication; salt water gargles Associated Symptoms:rib pain [place] - [facility] 01/07/2017 09:48:02 02/07/2017 text/html Upper Respirator y SymptomsReported bypatient.Location:hea d; throat Quality:congested;hack ing cough;hurts to swallow Severity:mild Onset/Timing:sudden Modifying Factors:OTC medication; salt water gargles Associated Symptoms:shortness of breath;fatigue;fever;s ore throat;vomiting;diarrh ea;nausea; Body aches, chills, headache Magda buckley [facility] 02/07/2017 12:27:03 03/09/2017 text/html BACK PAIN STARTE D ON TUESDAY/GETTING WORSESTARTS IN RIGHT LOWER BACK AREA AND GOES UP AND OVERFEELS LIKE HER LUNGS ARE GOING TO EXPLODE WHEN SHE COUGHMARK POLK TOLD HER ABOUT 1 YEAR AGO THAT HER RLL WAS STARTING TO CRYSTALLIZEHAD PNEUMONIA ABOUT 1 MONTH AGO i am having a lot of back pain. it is in my rib cage area and goes to my left shoulder pt is a smoker is coughing every once in a while Kesha buckley [facility] 03/09/2017 16:35:10 04/08/2017 text/html Bilateral foot p ain. Worse when walking. Started about 1 week ago. [place] [facility] 04/13/2017 16:19:57 04/11/2017 text/html foot pain bilate ral worsening, can hardly walk--home from work [place] [facility] 04/13/2017 14:15:37 OBGyn Episode No OBEpisode recorded.
--- OUTSIDE RECORDS SUMMARY | 2024-08-17 10:05 | XMS_ITS | Clinical Summary ---
Author Organization [facility] Address [address] [facility] [address] [place] [address] Phone Care Team Providers Care Senior Strategy Analyst Name Role Phone Albaro Fields MD Primary Care Provider [phone] Allergies Active Allergy Reactions Criticality Noted Date Comments Duloxetine 10/05/2013 Any antidepressant, has suicide thoughts. Medications UNABLE TO FIND Take 20 mg by mouth daily. Med Name: Piroxican Active albuterol (PROVENTIL HFA;VENTOLIN HFA) 90 mcg/actuation Inhl HFA Aerosol Inhaler Inhale 2 Puffs into the lungs every 6 hours as needed for Wheezing. Active SUMAtriptan (IMITREX) 100 mg Oral Tablet Take 100 mg by mouth once as needed for Migraine. Active oxyCODONE (ROXICODONE) 5 mg Oral Tablet Take 1-2 Tablets by mouth See Admin Instructions. Every 8 hours as needed for pain 10 Tablet 5 Active Additional Information Patient not taking.Reason: Pt electing to not take the medication, Reported on 08/07/2024 promethazine (PHENERGAN) 25 mg Oral Tablet Take 1 Tablet by mouth every 6 hours as needed for Nausea. 10 Tablet 5 Active Additional Information Patient not taking.Reason: Pt electing to not take the medication, Reported on 08/07/2024 acetaminophen (TYLENOL) 500 mg tablet Take 1,000 mg by mouth every 6 hours as needed for Pain. 025 Discontinu ed(Stop Taking at Discharge) Cholecalcifero l, Vitamin D3, 2,000 unit Cap Take 1 Cap by mouth daily. Discontinu ed(Stop Taking at Discharge) acetaminophen (TYLENOL) 650 mg CR tablet Take 650 mg by mouth every 8 hours as needed for Pain. Discontinu ed(Stop Taking at Discharge) nicotine (NICODERM CQ) 21 mg/24 hr patchIndicatio ns:Fibromyalgi a,OA (osteoarthriti s),Elevated C-reactive protein (CRP),Elevated white blood cell count,Elevated hemoglobin,Smo ker,Medication monitoring encounter Place 1 Patch onto the skin daily. Discontinu ed(Stop Taking at Discharge) HYDROcodone-ac etaminophen (NORCO) 7.5-325 mg per tabletIndicati ons:Fibromyalg ia,OA (osteoarthriti s),Elevated C-reactive protein (CRP),Elevated white blood cell count,Elevated hemoglobin,Smo ker,Medication monitoring encounter Take 1 Tab by mouth as needed for Pain. Discontinu ed(Stop Taking at Discharge) naproxen (NAPROSYN) 500 mg tabletIndicati ons:Fibromyalg ia,OA (osteoarthriti s),Elevated C-reactive protein (CRP),Elevated white blood cell count,Elevated hemoglobin,Smo ker,Medication monitoring encounter Take 500 mg by mouth 2 times daily. Discontinu ed(Stop Taking at Discharge) cyclobenzaprin e (FLEXERIL) 10 mg tabletIndicati ons:Fibromyalg ia,OA (osteoarthriti s),Elevated C-reactive protein (CRP),Elevated white blood cell count,Elevated hemoglobin,Smo ker,Medication monitoring encounter Take 0.5 Tabs by mouth daily as needed for Muscle spasms. 15 Tab 3 4 Discontinu ed(Stop Taking at Discharge) meloxicam (MOBIC) 15 mg Oral TabletIndicati ons:Acute pain of right shoulder Take 1 Tablet by mouth daily. 30 Tablet 2 4 Discontinu ed(Stop Taking at Discharge) ibuprofen (ADVIL;MOTRIN) 800 mg Oral Tablet Take 1 Tablet by mouth 3 times daily for 7 days. 21 Tablet 5 acetaminophen (TYLENOL) 500 mg Oral Tablet Take 2 Tablets by mouth every 8 hours for 10 days. 025 Active Problems Problem Noted Date Diagnosed Date Chronic pain of left ankle 08/07/2024 Osteochondral lesion of talar dome 06/28/2024 Medication monitoring encounter 10/06/2013 Smoker 10/06/2013 Elevated hemoglobin 10/06/2013 Elevated white blood cell count 10/06/2013 Elevated C-reactive protein (CRP) 10/06/2013 OA (osteoarthritis) 10/06/2013 Fibromyalgia 10/06/2013 Encounters Date Type Department Care Team Description 08/09/2024 10:30 AM EDT Office Visit [facility] [address] [place] [address] Bela Mccormick, PT Osteochondral lesion of talar dome (Primary Dx); Chronic pain of left ankle 08/09/2024 Plan of Care Documentation [facility] [address] [place] [address] 08/07/2024 1:30 PM EDT Office Visit [facility] [address] [place] [address] Hair Villagomez PA-C Osteochondral lesion of talar dome (Primary Dx) 07/26/2024 Telephone [facility] [address] [place] [address] Neil Boston MD Post-op Call 07/25/2024 8:00 AM EDT - 07/25/2024 8:45 AM EDT Surgery [facility] [address] [place] [address] Neil Boston MD ANKLE ARTHROSCOPY EXCISION/DRILLING AND REPAIR OSTEOCHONDRAL DISSECANS LESION TALUS 07/25/2024 8:00 AM EDT - 07/25/2024 11:59 PM EDT Hospital Encounter [facility] [address] [place] [address] Neil Boston MD Discharge Disposition: Home or Self Care 07/25/2024 7:53 AM EDT Anesthesia Event [facility] [address] [place] [address] Rachele Jordan CRNA Corriveau, Matthew M, MD 07/24/2024 Telephone [facility] [address] [place] [address] Neil Boston MD Other (Surgery Arrival Time) 07/04/2024 Travel 06/28/2024 11:15 AM EDT [facility]illary [facility] [address] [place] [address] Neil Boston MD Left ankle pain, unspecified chronicity 06/28/2024 11:00 AM EDT [facility] [address] [place] [address] [phone] Neil Boston MD Left ankle pain, unspecified chronicity (Primary Dx); Osteochondral lesion of talar dome from Last 3 Months Surgical History Surgery Date Site/Laterality Comments CHOLECYSTECTOMY 2011 HYSTERECTOMY, VAGINAL 2010 KNEE SURGERY 1999 BREAST LUMPECTOMY 1997 ANKLE ARTHROSCOPY 07/25/2024 Foot/Ankle/Left Left Ankle Arthroscopy, excision drilling osteochondral lesion talus; Surgeon: Neil Boston MD; Location: [facility]; Service: Orthopedics Medical History Medical History Date Comments Headache(784.0) Mild intermittent asthma, uncomplicated Sleep apnea Does not use CPA P Anesthesia Pt states she we nt in to A-fib after knee surgery. Family History Relation Name Status Comments Father Other Mother Alive Social History Tobacco Use Types Packs/Day Years [...] on file Sexual Orientation Not on file Obstetrics History Last Filed Vital Signs Vital Sign Reading [...] Mass Index 33.99 07/25/2024 6:25 AM EDT Plan of Treatment Upcoming Encounters Date Type Department Care Team (Late st Contact Info) Description 08/30/2024 10:30 AM EDT Office Visit [facility] [address] [facility] [address] [place] [address] Hair Villagomez PA-C [address] [place] [address] Health Maintenance Due Date Last Done Comments Annual Wellness Exam 09/13/1970 DTaP/TDaP/Td (1 - Tdap) 09/13/1986 Hepatitis B Vaccine (1 of 3 - 19+ 3-dose series) 09/13/1986 Breast Cancer Screening 2007 Cologuard 09/13/2012 Colon Cancer Screening 09/13/2012 Colonoscopy 09/13/2012 FIT 09/13/2012 Sigmoidoscopy 09/13/2012 Virtual Colonography 09/13/2012 Pneumococcal Vaccine 50+ (2 of 2 - PCV) 01/22/2014 01/22/2013 Zoster (1 of 2) 09/13/2017 COVID-19 Vaccine (1 - 2023-2 5 season) 2023 Influenza Vaccine (Season Ended) 2024 Meningococcal B Vaccine Aged Out No l onger eligible based on patient's age to complete this topic Procedures Procedure Name Priority Date/Time Associated Diagnosis Comments INTRAOP AIRWAY PLACEMENT Routine 07/25/2024 8:12 AM EDT DC ARTHRS ANKLE EXC OSTCHNDRL DFCT W/DRLG DFCT 07/25/2024 7:56 AM EDT Osteochondral lesion of talar dome Special Needs bv XR ANKLE LEFT AP LATERAL AND OBLIQUE INCLUDING STANDING Routine 06/28/2024 11:02 AM EDT Left ankle pain, unspecified chronicity from Last 3 Months Results * INTRAOP AIRWAY PLACEMENT (07/25/2024 8:12 AM EDT) Narrative [facility] - 07/25/2024 8:12 AM EDT Rachele Jordan CRNA 07/25/2024 8:12 AM Intraop Airway Placement: Date/Time: 07/25/2024 8:12 AM Induction type: IV Mask size: Standard adult Pre-Oxygenation: Standard Mask ventilation: Easy mask ventilation Airway type: LMA Topical Anesthetic/Lubricant: Lubricant jelly Airway location: Oral Device size: 4 Measured from: Lips Placement verified: Auscultation, End tidal CO2 and Symmetric chest wall motion Condition: Atraumatic and Unchanged Insertion attempts: 1 Title: ENVIRONMENTAL SERVICES SUPERVISOR us Rachele Jordan CRNA DC ANESTHESIA Final Re sult [facility] [address] [place] [address] * XR ANKLE LEFT AP LATERAL AND OBLIQUE INCLUDING STANDING (06/28/2024 11:02 AM EDT) Shane William - 06/28/2024 11:03 AM EDT Please see physician's note from office encounter for x-ray imaging result us Neil Boston MD IMG DIAGNOSTIC IMAGING ORDER ROLANDO Final Result from Last 3 Months [id number] PLAN BY [employer] [id number] PLAN BY [facility] Care Teams Senior Strategy Analyst Relationship Specialty Start Date End Date Albaro Fields MD PCP - General Family Medicine 05/08/13
--- OUTSIDE RECORDS SUMMARY | 2024-08-17 10:05 | XMS_ITS | Encounter Summary ---
Author Organization [facility] Address [address] [place] [address] Care Team Providers Care National Sales Name Role Phone Albaro Fields MD Primary Care Provider [phone] Reason for Visit * Reason Onset Date Comments Post-op Call 07/26/2024 Encounter Details Date Type Department Care Team (Late st Contact Info) Description 07/26/2024 Telephone [facility] [address] [place] [address] Neil Boston MD [address] [place] [address] Post-op Call Social History Tobacco Use Types Packs/Day Years [...] as of this encounter Miscellaneous Notes * Telephone Encounter - Michelle Amador NA - 07/26/2024 11:14 AM EDT Spoke to patient, they are doing well after surgery and understand instructions well. No questions or concerns at this time, advised to call back if needed. documented in this encounter Plan of Treatment Upcoming Encounters Date Type Department Care Team (Late st Contact Info) Description 08/30/2024 10:30 AM EDT Office Visit [facility] [address] [place] [address] Hair Villagomez PA-C [address] [place] [address] documented as of this encounter Visit Diagnoses Not on filedocumented in this encounter Care Teams National Sales Relationship Specialty Start Date End Date Albaro Fields MD PCP - General Family Medicine 05/08/13 documented as of this encounter
--- OUTSIDE RECORDS SUMMARY | 2024-08-17 10:05 | XMS_ITS | Encounter Summary ---
Author Organization Healthcare Address [address] [place] [address] Care Team Providers Care Postie Name Role Phone Pcp, No Primary Care Provider Unavailabl e Reason for Referral * Consultation (Routine) - Pending Review Specialty Diagnoses / Procedures Referred By Contac t Referred To Contact Rheumatology Diagnoses Fibromyalgia Albaro Fields MD [address] [place] [address] Phone: tel: fax: Referral ID Status Reason Start Date Expiration Date Visits Requested Visits Authorized [id number] Pending Review Specialty Services Required 08/26/2023 02/24/2025 1 1 Encounter Details Date Type Department Care Team (Latest Contact Info) Description 08/26/2023 Community [facility] [address] [place] [phone] Albaro Fields MD [address] [place] [address] Fibromyalgia (Primary Dx) Social History Tobacco Use Types Packs/Day Years Used Date Smoking Tobacco: Never Assessed Comments Unknown Sex and Gender Information Value Date Recorded Sex Assigned at Not on file Legal Sex Female 11:12 AM EDT Gender Identity Not on file Sexual Orientation Not on file documented as of this encounter Plan of Treatment Scheduled Referrals Name Type Priority Associated Diagnoses Order Schedule Ambulatory referral to Rheumatology Outpatient Referral Routine Fibromyalgia Expected: 08/26/2023 (Approximate), Expires: 02/24/2025 documented as of this encounter Visit Diagnoses Diagnosis Fibromyalgia- Primary Unspecified myalgia and myositis documented in this encounter Care Teams Postie Relationship Specialty Start Date End Date Pcp, No [address] [place] [address] PCP - General Family Medicine 06/14/24 documented as of this encounter
--- OUTSIDE RECORDS SUMMARY | 2024-08-17 10:05 | XMS_ITS | Encounter Summary ---
Author Organization [facility] Address [address] [place] [address] Care Team Providers Care Calender Inspector Name Role Phone Albaro Fields MD Primary Care Provider [phone] Reason for Visit * Reason Onset Date Comments Other 07/24/2024 Surgery Arrival Time Encounter Details Date Type Department Care Team (Late st Contact Info) Description 07/24/2024 Telephone [facility] [address] [place] [address] Neil Boston MD [address] [place] [phone] Other (Surgery Arrival Time) Social History Tobacco Use Types Packs/Day Years [...] encounter Miscellaneous Notes * Telephone Encounter - Tiffany Mcdonnell, Clerical Staff - 07/24/2024 12:30 PM EDT Spoke with patient to inform her of surgery arrival time of 6:30 am on Tuesday07/25/2024 at [facility] [address] [place] [address]. Patient expressed understanding and will proceed as planned documented in this encounter Plan of Treatment Upcoming Encounters Date Type Department Care Team (Late st Contact Info) Description 08/30/2024 10:30 AM EDT Office Visit [facility] [address] [place] [address] Hair Villagomez PA-C [address] [place] [address] documented as of this encounter Visit Diagnoses Not on filedocumented in this encounter Care Teams Calender Inspector Relationship Specialty Start Date End Date Albaro Fields MD PCP - General Family Medicine 05/08/13 documented as of this encounter
--- NOTE | 2024-08-17 10:09 | HMH.EDCP ---
Discharge Plan Disposition Patient Disposition: Admitted Prescriptions Prescriptions: No Action piroxicam [Feldene] 20 mg capsule 20 mg PO DAILY Qty: 90 3RF sumatriptan succinate [Imitrex] 100 mg tablet 100 mg PO NEEDED PRN (Reason: migraine headache) Rx Instructions: do not exceed 2 doses per 24 hrs albuterol sulfate 90 mcg/actuation HFA aerosol inhaler 1 inh INHALATION QIDP PRN (Reason: shortness of breath or wheezing) Referrals Follow up/Referrals: Provider,Referral, MD [Referring, Medical] - See instructions Clinical Impressions Clinical Impression: Unstable angina, Acute coronary syndrome Print Language Print Language: Chinese Discharge ED Provider: Lamont Westbrook HPI General Chief Complaint: Chest Pain Stated Complaint: chest pain Time Seen by Provider: 08/17/24 09:44 Mode of Arrival: Ambulatory Source of Information: Patient Description of Symptoms (Recalled from ER Triage Doc. by RN): pt has been having midsternal chest pain and tightness with n/v, dizziness and left arm shoulder pain since 629 this morning, has not had any nitro or ASA today no hx of stents History of Present Illness HPI narrative: Please note that above description of symptoms, in this electronic medical record under categorization of recalled from ER triage doctor by RN are reflective of an initial nursing assessment, however, is not reflective of my full history and physical exam that was personally taken and clarified. Consequentially, this preceding description of symptoms, which may include the patient's categorized chief complaint in the EMR, do not reflect my personal clinical impression, and the ultimate description of history of present illness and patient stated complaints should be deferred to this section of the note. Unless stated otherwise or congruent with this section of the note, additional signs, symptoms, or incongruence should be interpreted as inaccurate with my clinical impression. Related Data Home Medications ?Medication ?Instructions ?Recorded ?Confirmed albuterol sulfate 90 mcg/actuation 1 inh inhalation QIDP PRN 08/17/24 08/17/24 aerosol inhaler shortness of breath or wheezing sumatriptan succinate 100 mg 100 mg PO NEEDED PRN migraine 08/17/24 08/17/24 tablet (Imitrex) headache Previous Rx's ?Medication ?Instructions ?Recorded piroxicam 20 mg capsule (Feldene) 20 mg PO DAILY #90 caps 05/21/24 Allergies Allergy/AdvReac Type Severity Reaction Status Date / Time Phenylpiperazine AdvReac Severe Irritable Verified 05/21/24 09:58 Antidepressant Tetracyclic Antidepressants AdvReac Severe Irritable Verified 05/21/24 09:58 [facility] Disclaimer: The information contained in this section may have been updated after the patient was seen, as this information can be updated by other users. Medical History COPD (chronic obstructive pulmonary disease) Tension headache Dysfunction of right eustachian tube Small fiber neuropathy Social History Smoking Status: Never smoker alcohol intake: never substance use type: denies use current occupational status: employed Travel in the last 8 weeks?: None household members: spouse housing: house Have you lived/traveled outside US in past 30 days?: No Contact w/someone who lives/traveled outside US past 30 days?: No Exposure to someone with infectious disease in past 14 days?: No Do you have a fever (greater than 100.4 F or 38 C)?: No Have you tested positive for COVID-19?: No Exposed to someone with COVID-19 in past 14 days?: No Do you have a sore throat?: No Do you have a cough?: No Do you have any weakness?: No Do you have any diarrhea?: No Are you experiencing any unusual bleeding?: No Do you have any muscle aches/pain?: No Do you have any abdominal pain?: No Are you experiencing loss of taste or smell?: No Other Medical History Have you received the Pneumonia Vaccine: No ROS Obtained: Yes All systems reviewed & no additional complaints except as documented Physical Exam General General appearance: alert Neck Neck exam: Present trachea midline Chest Chest inspection: Present normal inspection and symmetric chest wall rise Respiratory Respiratory exam: Present normal lung sounds bilaterally; Absent respiratory distress, wheezes, stridor, accessory muscle use or prolonged expiratory phase Cardiovascular Cardiovascular exam: Present regular rate, normal rhythm and other (Pulses equal and symmetric in upper and lower extremities) Extremities Exam Extremities exam: Absent edema Neurological Exam Neurological exam: Present alert, oriented X3 and CN II-XII intact Skin Skin exam: Present warm and dry; Absent cyanosis, diaphoresis or pallor HEART Score HEART Score HEART Score assessment performed?: Yes History (anamnesis): Highly suspicious ECG: Non-specific disturbance Age: 45-65 years Risk factors: 3 or more risk factors Troponin: 1-3x normal limit HEART Score: 7 Critical Care Critical Care Time Critical Care Time: Yes (cardiac) Attestation: On 08/17/24, the high probability of a clinically significant, sudden or life threatening deterioration of the following system(s) required my full and direct attention, intervention and personal management. The time I documented below is in addition to time spent performing reported procedures but includes the following listed in this critical care notation. Total Time Total Critical Care Time: 35 Medical Decision Making Medical Records Medical records reviewed: Yes I reviewed the patient's medical records. Eddie Inquiry Pt receiving controlled substance: No Eddie was queried for this patient: No Vital Signs Vital Signs: 08/17/24 09:37 08/17/24 09:45 08/17/24 09:47 Temperature 97.9 F Temperature Source Oral Pulse Rate 79 89 Pulse Rate [Left Radial] 89 Respiratory Rate 20 15 18 Blood Pressure 175/89 H 175/89 H Blood Pressure [Right Arm] 175/89 H Blood Pressure Mean [Right Arm] 117 Blood Pressure Source Automatic Cuff 02 Sat by Pulse Oximetry 95 95 95 Oxygen Delivery Method Room Air Room Air 08/17/24 09:48 08/17/24 10:00 Temperature Temperature Source Pulse Rate 89 80 Pulse Rate [Left Radial] Respiratory Rate 19 Blood Pressure 160/77 H Blood Pressure [Right Arm] Blood Pressure Mean [Right Arm] Blood Pressure Source 02 Sat by Pulse Oximetry 98 Oxygen Delivery Method Lab Data Labs: Lab Results 08/17/24 09:36: WBC 10.8, RBC 5.60 H, Hgb 15.5, Hct 47.5 H, MCV 84.8, MCH 27.7, MCHC 32.6, RDW 14.6, Plt Count 333, MPV 11.2 H, Neut % (Auto) 65.7, Lymph % (Auto) 25.2, Harding % (Auto) 5.2, Eos % (Auto) 2.7, Baso % (Auto) 0.7, Neut # (Auto) 7.1, Lymph # (Auto) 2.7, Harding # (Auto) 0.6, Eos # (Auto) 0.3, Baso # (Auto) 0.1, APTT 24.5, Sodium 138, Potassium 4.0, Chloride 103, Carbon Dioxide 28, Anion Gap 11.0, BUN 8, Creatinine 0.50 L, Estimated Creat Clear 180, Estimated GFR 128, Est GFR ( Amer) 154, Glucose 140 H, Calcium 10.0, Total Bilirubin 0.5, AST 31, ALT 27, Alkaline Phosphatase 137 H, Troponin I 0.05 H, Total Protein 7.4, Albumin 4.5, Globulin 2.9, Albumin/Globulin Ratio 1.6, Lipase 52 08/17/24 09:46: D-Dimer 0.42 08/17/24 09:36 08/17/24 09:36 Response Orders (Tests/Meds): ED MEDICATIONS Generic Name Dose Route Start Last Admin Trade Name Freq PRN Reason Stop Dose Admin Acetaminophen 650 mg 08/17/24 10:43 Acetaminophen 325mg Tab PO 09/16/24 10:42 Q4HP PRN Fever or Mild Pain (1-3) Hydrocodone Bitart/Acetaminophen 1 tab 08/17/24 10:43 Hydrocodone/Apap 5/325 Mg Tablet PO 09/16/24 10:42 Q4HP PRN Moderate Pain (4-6) Hydrocodone Bitart/Acetaminophen 2 tab 08/17/24 10:43 Hydrocodone/Apap 5/325 Mg Tablet PO 09/16/24 10:42 Q4HP PRN Severe Pain (7-10) Diazepam 5 mg 08/17/24 10:43 Diazepam 5mg Tablet PO 08/17/24 22:44 ONCE PRN Anxiety Fentanyl Citrate 50 mcg 08/17/24 10:43 Fentanyl 100mcg/2ml Vial IV 08/17/24 22:44 Q3MINP PRN Sedation Fentanyl Citrate 25 mcg 08/17/24 10:43 Fentanyl 100mcg/2ml Vial IV 08/17/24 22:44 Q3MINP PRN Sedation Flumazenil 0.2 mg 08/17/24 10:43 Flumazenil 0.1mg/Ml 5ml Vial IV 08/17/24 22:44 NEEDED PRN Sedation Heparin Sodium (Porcine) 5,000 unit 08/17/24 10:43 Heparin 1,000 Units/Ml 10ml Vial ([facility]) IV 08/17/24 14:44 NEEDED PRN Emergency Box Home Health Billing Specialist Hydralazine HCl 20 mg 08/17/24 10:43 Hydralazine 20mg/Ml Vial IV 08/17/24 14:44 ONCE PRN sbp>160 Adenosine 180 mg/ Sodium 90 mls @ 489.877 mls/hr 08/17/24 10:43 Chloride IV 08/17/24 14:44 ONCE PRN fractional flow reserve 180 MCG/KG/MIN Adenosine 90 mg/ Sodium 90 mls @ 979.754 mls/hr 08/17/24 10:43 Chloride IV 08/17/24 14:44 ONCE PRN fractional flow reserve 180 MCG/KG/MIN Sodium Chloride 1,000 mls @ 25 mls/hr 08/17/24 10:45 Sod Chloride 0.9% 500ml Bag IV 08/18/24 10:44 .Q25H KAMI Labetalol HCl 20 mg 08/17/24 10:43 Labetalol 20mg/4ml Syringe IV 08/17/24 14:44 ONCE PRN sbp>160 Lorazepam 1 mg 08/17/24 10:43 Lorazepam 2mg/Ml Vial IV 08/17/24 22:44 ONCE PRN Anxiety Midazolam HCl 1 mg 08/17/24 10:43 Midazolam 2mg/2ml Vial IV 08/17/24 22:44 Q3MINP PRN Sedation Midazolam HCl 1 mg 08/17/24 10:43 Midazolam Hcl 1mg/Ml 5ml Vial IV 08/17/24 22:44 Q3MINP PRN Sedation Miscellaneous 1 each 08/17/24 10:43 Consider Pt For Dual Antiplatelet Therapy At Discharge-Stent NOTAPPLIC 09/16/24 10:42 NEEDED PRN Reminder for s/p stent Naloxone HCl 0.4 mg 08/17/24 10:43 Naloxone 0.4mg/Ml Vial IV 08/17/24 22:44 Q5MINP PRN Decreased Respirations Nitroglycerin 800 mcg 08/17/24 10:43 Nitroglycerin 800mcg/8ml Syr ([facility]ourer) IA 08/17/24 14:44 NEEDED PRN Emergency Box Home Health Billing Specialist Nitroglycerin 0.4 mg 08/17/24 10:43 Nitroglycerin 0.4mg Sl Tablet SL 09/16/24 10:42 Q5MINP PRN Chest Pain Ondansetron HCl 4 mg 08/17/24 10:43 Ondansetron 4mg/2ml Vial IV 08/17/24 22:44 NEEDED PRN Nausea Promethazine HCl 25 mg 08/17/24 10:43 Promethazine Hcl 25mg/Ml 1ml Vial IV 08/17/24 22:44 NEEDED PRN Nausea And Vomiting Protamine Sulfate 50 mg 08/17/24 10:43 Protamine Sulfate 50mg/5ml Vial ([facility]) IV 08/17/24 14:44 ONCE PRN act>200 Sodium Chloride 10 ml 08/17/24 10:43 Sodium Chloride 0.9% 10ml Vial IV 09/16/24 10:42 NEEDED PRN to Dilute Lorazepam inj Discontinued Medications Generic Name Dose Route Start Last Admin Trade Name Jonq PRN Reason Stop Dose Admin Aspirin 324 mg 08/17/24 09:47 08/17/24 09:56 Aspirin 81mg Chewable Tablet PO 08/17/24 09:48 324 mg ONCE ONE Administration Diphenhydramine HCl 50 mg 08/17/24 10:43 Diphenhydramine 50mg/Ml Vial IV 08/17/24 10:44 ONCE ONE Heparin Sodium (Porcine) 9,000 unit 08/17/24 10:39 08/17/24 10:45 Heparin Sodium 5,000 Unit/Ml Vial IV 08/17/24 10:40 9,000 unit ONCE ONE Administration Heparin Sodium/Sodium Chloride 3,000 unit 08/17/24 10:43 Heparin 1,000 Units/500ml Ns ([facility]ou[facility]) IV 08/17/24 10:44 ONCE ONE Lidocaine HCl 10 ml 08/17/24 10:43 Lidocaine 1% 10ml Mdv IJ 08/17/24 10:44 ONCE ONE Lidocaine HCl 10 ml 08/17/24 10:43 Lidocaine 1% 5ml Pf Vial IJ 08/17/24 10:44 ONCE ONE Morphine Sulfate 4 mg 08/17/24 10:43 Morphine 4mg/Ml Syringe IV 08/17/24 10:44 ONCE ONE Sodium Chloride 25 ml 08/17/24 10:43 Sodium Chloride 0.9% 25ml Bag IV 08/17/24 10:44 ONCE ONE Verapamil HCl 2.5 mg 08/17/24 10:43 Verapamil 2.5mg/Ml 2ml Vial IV 08/17/24 10:44 ONCE ONE ORDERS Category Date Time Status CXR --portable [XR chest portable] Stat Exams 08/17/24 09:59 Taken Basic Metabolic Panel AMLAB Lab 08/18/24 06:00 Ordered Basic Metabolic Panel Stat Lab 08/17/24 10:44 Ordered Complete Blood Count Auto Diff AMLAB Lab 08/18/24 06:00 Ordered Complete Blood Count Auto Diff Stat Lab 08/17/24 09:36 Completed Complete Blood Count Auto Diff Stat Lab 08/17/24 10:44 Ordered Comprehensive Metabolic Panel Stat Lab 08/17/24 09:36 Completed D-Dimer Stat Lab 08/17/24 09:46 Completed Lipase Stat Lab 08/17/24 09:36 Completed PTT [Activated Partial Thrombo Time] Stat Lab 08/17/24 09:36 Completed Troponin I Q3H Lab 08/17/24 13:00 Ordered Troponin I Q3H Lab 08/17/24 16:00 Ordered Troponin I Stat Lab 08/17/24 09:36 Completed ECG Request NEEDED Y 08/17/24 10:45 Ordered MDM Narrative Medical Decision Narrative: 58-year-old female presenting with chest pain. She has a history of hypertension, hyperlipidemia, COPD still smoking 1 pack/day and not on home oxygen. Also has fibromyalgia. States that she woke up around 6 AM about 3 hours prior to this visit with sharp, left-sided chest pain associated with vomiting, diaphoresis, lightheadedness and near syncope. Was maximal intensity initially, has since improved. States that it is still currently present, radiates to her left shoulder blade and down her left arm associated with heaviness. No vision changes, neurologic deficits otherwise, overt syncope, shortness of breath, PND, orthopnea, lower extremity swelling, abdominal or back pain, or any other concerns. Patient does state that she had an ankle surgery less than a month ago. No history of DVT, PE, lower extremity swelling, pain, etc. Not on thinners. History was obtained via conversation with patient. On arrival, patient hemodynamically stable, alert, [oriented x4, ][appropriate, ]GCS [15], moving all extremities spontaneously, pupils equal and reactive to light. Full physical exam performed and significant for obese female no acute distress. Lungs are clear, cardiac exam without murmurs gallops or rubs. Pulses equal and symmetric in upper and lower extremities, no meaningful lower extremity edema. Abdomen is soft. She speaking in full sentences and in no acute distress, very clinically well. Differential includes ACS, MA, acute coronary syndrome, stable versus unstable angina, COPD exacerbation, bronchitis, pneumonia, pneumothorax, PE, among others. Patient was given 4 aspirin for symptomatic management[ and correction of underlying abnormalities]. Patient placed on continuous cardiac monitoring and continuous pulse ox with initial blood pressure 175/89, heart rate 89, saturation 95% on room air. [Independent interpretation of EKG shows] sinus rhythm about 87 bpm with WV 165, QRS 97, QTc 414. Patient does have ST depressions in 2, 3, aVF as well as throughout the precordium V2 through V6. No significant elevations, but subtle changes in high lateral leads. Incomplete right bundle branch block morphology. Workup independently interpreted and significant for nonactionable CBC or chemistry, but initial troponin elevated at 0.05. On independent interpretation of imaging, no acute cardiopulmonary space disease on chest x-ray. See radiology read for full review of final results. Heart score 7. Patient given heparin bolus 100 units/kg at discretion of cardiology after consulting cardiology formally. Pads were placed on patient, taken to [facility] for emergent catheterization. Cafe Operator disclaimer Much of this encounter note is an electronic band presser spoken language to printed text. Electronic band presser of the spoken language may permit errors. Although I have reviewed the note, some errors may still exist.
[2024-08-17 10:12] LABS: Troponin I 0.05 ng/ml (0.00-0.034)
[2024-08-17 10:21] LABS: Activated Partial Thrombo Time 24.5 seconds (22.8-30.6)
--- NOTE | 2024-08-17 10:38 | PC.NURSE ---
dr dougherty speaking with dr abreu
--- NOTE | 2024-08-17 10:42 | IR_ITS ---
APPROVED REPORT Patient Location: [facility] Image Consultant: ARLETH Chen RT (R) PROCEDURES Left heart catheterization Left ventriculogram Selective coronary angiogram Drug-eluting stent deployment to the proximal first diagonal artery INDICATION Acute lateral ST elevation myocardial infarction, Coronary artery disease Informed consent was obtained prior to the procedure. COMPLICATIONS NONE Estimated Blood Loss: LESS THAN 10 ML TECHNIQUE One percent lidocaine used to anesthetize the right anterior aspect of the wrist. The right radial artery was accessed via the Seldinger technique. A 6 Telugu sheath was placed in the right radial artery. 2.5 mg of Verapamil, 800 mcg of nitroglycerin, 1mg Lidocaine and 5000 U Heparin were given through the arterial sheath. The JL3 catheter was also used to perform left heart catheterization, left ventriculogram and selective coronary angiogram. At the end the diagnostic angiogram therapeutic heparin had already been administered in the emergency department and the guide catheter was placed in left main artery followed by Choice PT extra-support wire placed in the first diagonal artery. A 2 mm x 12 mm balloon was deployed at 12 ion to predilate the stenosis restoring KIM-3 flow. A 2 mm x 26 mm [place] frontier stent was placed in the ostial proximal segment and deployed at 14 ion reducing the 100% occlusion to 0%. KIM 0 flow was present at the beginning of the procedure with KIM-3 flow at the end the procedure. In the procedure the apparatus was removed the sheath was removed good hemostasis was achieved using TR banding patient was transferred to the postop putting in stable condition ANGIOGRAPHIC RESULTS The left main artery Normal The left anterior descending artery Has proximal 30% stenosis with multiple mid vessel 30 to 40% stenoses. The first diagonal artery is proximally occluded. The second diagonal artery is a large vessel and has mid vessel 60% stenosis The circumflex artery Is nondominant and has a 40% mid vessel first obtuse marginal artery stenosis second obtuse marginal artery is larger and has a mid vessel 70 to 80% stenosis The right coronary artery Is dominant and has proximal 20% stenosis with the mid vessel 30 to 40% concentric stenosis The MCKEE ventriculogram reveals Normal 65% The left ventricular end-diastolic pressure 20 mmHg IMPRESSION Acute high lateral ST elevation myocardial infarction involving an occluded first diagonal artery Successful stenting of first diagonal artery 100% occlusion reduced to 0% with 1 drug-eluting stent Persistent moderate to severe stenosis in the second obtuse marginal artery Normal ejection fraction Elevated LVEDP PLAN 1. Effient and aspirin 2. 48 hours of telemetry 3. Echocardiogram today 4. LDL less than 55 to be achieved with high intensity statin 5. Avoidance of tobacco products 6. Standard therapy for ischemic heart disease Electronically signed by : Derrick Crowley MD 08/17/2024 11:58:41
--- NOTE | 2024-08-17 10:43 | HMH.PHAINT1 ---
Pharmacy Intervention Comments: MEDICATION RECONCILIATION COMPLETED ON PATIENT USING EXTERNAL FILL HISTORY FROM PHARMACY. -JUD MUNOZ, DOLLYD
[2024-08-17] MEDS: HEPARIN SODIUM 5,000 UNIT/ML VIAL 9000 UNIT IV (10:45)
[2024-08-17 10:46] LABS: D-Dimer 0.42 ug/mL (0.0-0.5)
--- NOTE | 2024-08-17 10:49 | PC.NURSE ---
Allergy and Fall risk bracelet placed on patients left wrist. All belongings except pts glasses are in a belonging bag. Family at
--- NOTE | 2024-08-17 10:57 | PC.NURSE ---
GREG FROM [facility] STATES READY FOR PT TO COME TO [facility]. PT TRANSPORTED TO [facility] VIA STRETCHER WITH ZOLL IN PLACE. REPORT GIVEN TO GREG JACOB RN
[2024-08-17] MEDS: LIDOCAINE 1% 10ML MDV 10 ML IJ (11:10)
[2024-08-17] MEDS: HEPARIN 1,000 UNITS/500ML NS (CATH LAB) 3000 UNIT IV (11:10)
[2024-08-17] MEDS: NITROGLYCERIN 800MCG/8ML SYR (CATH LAB) 800 MCG IA (11:10)
[2024-08-17] MEDS: diphenhydrAMINE 50MG/ML VIAL 50 MG IV (11:10)
[2024-08-17] MEDS: 0.9 % SODIUM CHLORIDE 500 ML 25 ML IV (11:10)
[2024-08-17] MEDS: VERAPAMIL 2.5MG/ML 2ML VIAL 2.5 MG IV (11:10)
[2024-08-17] MEDS: FENTANYL 100MCG/2ML VIAL 50 MCG IV (11:12)
[2024-08-17] MEDS: MIDAZOLAM HCL 1MG/ML 5ML VIAL 1 MG IV (11:12)
[2024-08-17] MEDS: PRASUGREL 10MG TAB 60 MG PO (11:29)
--- NOTE | 2024-08-17 12:03 | CA_ITS ---
APPROVED REPORT EXAM: Comprehensive 2D, Doppler, and color-flow Echocardiogram Freight Adjuster: Radha Santiago, RT(R) Ht: 5 ft 4 in Wt: 199lbs BSA: 1.95 BP: 163/77 mmHg Indications: STEMI, cardiac cath today with stent placed. 2D Dimensions LVEF (Maher's) 65.10 % F: 54 - 74 LV Volume 107.10 mL F: 46 - 106 LV Volume Index 54.9 mL/m2 F: 29 - 61 LA Volume 26.50 mL LA Volume Index 13.59 mL/m2 (M/F) 16-34 EF AP4 73.70 % EF AP2 55.8 % EF BP 65.1 % GL Strain -18.5 % M-Mode Dimensions RVDd 2.57 cm (0.9-2.6) LA Diam 3.47 cm (1.9-4.0) LVDd 4.54 cm (3.5-5.7) LVDs 3.41 cm (3.5-5.7) IVSd 0.80 cm (0.6-1.1) PWd 1.24 cm (0.6-1.1) EF (Teich) 49.40% FS 24.90% EDV (Teich) 94.40 mL ESV (Teich) 47.80 mL LV Diastology E Decel Time 160 (160-240 msec) E/A Ratio 0.9 Mitral Valve MV E Max Bairon. 66.0 (40-130 cm/s) MV A Velocity 76.0 (40-130 cm/s) E/A Ratio 0.87 MV PHT 47.0 ms Left Ventricle The left ventricle is normal size. The left ventricular systolic function is normal. The left ventricular ejection fraction is within the normal range. There is increased LV wall thickness. There is normal LV segmental wall motion. Transmitral Doppler flow pattern suggests impaired LV relaxation. LVEF is 60%. Right Ventricle Right ventricle is mildly dilated. The right ventricular systolic function is normal. Atria Left atrium is mildly dilated. Right atrium is mildly dilated. There is no Doppler evidence of interatrial shunt. Aortic Valve The aortic valve is normal in structure. There is no aortic valvular stenosis. No aortic regurgitation. Mitral Valve The mitral valve is normal in structure. No evidence of mitral valve stenosis. Trace mitral regurgitation. Tricuspid Valve Tricuspid valve is grossly normal in structure and function. Trace tricuspid regurgitation. There is insufficient TR jet to estimate RVSP. Pulmonic Valve The pulmonary valve is normal in structure. Trace pulmonic regurgitation. Great Vessels The aortic root is normal in size. IVC is normal in size and collapses >50% with inspiration. Pericardium There is no pericardial effusion. Other Information Study Quality: Fair Conclusion Normal biventricular systolic function (LVEF 60%). Mild RV dilation. Mild biatrial dilation. No significant valvular stenosis or regurgitation. Electronically signed by : Joseline Knowles MD 08/17/2024 13:41:08
[2024-08-17] MEDS: IOPAMIDOL-370 (76%);100ML BOTTLE 110 ML IV (14:44)
[2024-08-17 14:45] LABS: CATHL Activated Clotting Time > 400 SEC (74-125)
--- NOTE | 2024-08-17 15:08 | P.HP_ITS ---
<Statement entered by Marcello Reeves MD - 08/18/24 16:38> Personally evaluated patient and agree with plan of care as below with modifications. #STEMI #CAD #Hyperlipidemia ? Found to be in STEMI with ST elevation in lead aVR, troponinemia. ? Cardiology consulted, s/p PCI with 1 stent to first diagonal artery. Patient tolerated procedure well. ? ECHO pending. Started on aspirin 81 mg, prasugrel 10 mg. History of Present Illness *Admission Date: 08/17/24 *Reason for visit:: Chest Pain, STEMI *History of present illness: Ms. Chua is a 58-year-old female who has a history of COPD, fibromyalgia, and migraines; who presented to the emergency department today with complaints of substernal chest pain that radiated to her back and down her left arm. She states that it woke her up in the middle of the night and continued throughout the morning before she came to the emergency department. An EKG was performed and was found to have ST depressions in 2, 3, aVF, in addition her troponin was slightly elevated at 0.05. She also had a chest x-ray that showed no acute processes. Patient denies shortness of breath, nausea, vomiting, abdominal pain, or weakness. Cardiology was consulted and it was determined that she needed to go to the [facility] emergently. Patient had a left heart cath, and received 1 stent to the first diagonal artery. Normal ejection fraction noted, elevated LVEDP. Hospital medicine was consulted and and agreed to admit the patient for close monitoring with telemetry for 48 hours post STEMI. [facility] Disclaimer: The information contained in this section may have been updated after the patient was seen, as this information can be updated by other users. Medical History (Updated 08/18/24 @ 16:35 by Marcello Reeves MD) Small fiber neuropathy Dysfunction of right eustachian tube Tension headache COPD (chronic obstructive pulmonary disease) Surgical History (Updated 08/17/24 @ 17:02 by Shayy Morrison RN) History of ankle surgery Social History Smoking Status: Never smoker alcohol intake: never substance use type: denies use current occupational status: employed Travel in the last 8 weeks?: None household members: spouse housing: house Other Medical History Have you received the Pneumonia Vaccine: No Review of Systems Constitutional Constitutional: Reports as per [facility] Meds Home Medications and Allergies Home Medications ?Medication ?Instructions ?Recorded ?Confirmed ?Type piroxicam 20 mg capsule (Feldene) 20 mg PO DAILY #90 c aps 05/21/24 08/17/24 Rx Held on 08/18/24. Instructions: Resume on 09/01/24. Hold this medication until you follow-up with cardiology as it can affect cardiac healing. albuterol sulfate 90 mcg/actuation 1 inh inhalation QI DP PRN 08/17/24 08/17/24 History aerosol inhaler shortness of breath or wheez ing aspirin 81 mg tablet 81 mg PO DAILY #30 tabs 08/05 05/29 Rx prasugrel HCl 10 mg tablet 10 mg PO DAILY #30 tabs Rx (Effient) sumatriptan succinate 100 mg 100 mg PO NEEDED PRN m igraine 08/17/24 08/17/24 History tablet (Imitrex) headache losartan 25 mg tablet 25 mg PO DAILY #30 tabs 08/05 06/29 Rx metoprolol succinate 25 mg 25 mg PO DAILY #30 tabs Rx tablet,extended release 24 hr nicotine 21 mg/24 hr daily 1 patch transdermal DAILY # 28 ea 08/18/24 Rx transdermal patch rosuvastatin 20 mg tablet 20 mg PO DAILY #30 tabs 08/05 06/29 Rx New Prescriptions to Start Prescriptions: Derrick Mattson losartan Lala,Marcello metoprolol succinate Marcello Reeves nicotine Lala,Marcello prasugrel HCl [Effient] Derrick Crowley rosuvastatin Marcello Reeves Allergies Allergy/AdvReac Type Severity Reaction Status Date / Time Phenylpiperazine AdvReac Severe Irritable Verified 05/21/24 09:58 Antidepressant Tetracyclic Antidepressants AdvReac Severe Irritable Verified 05/21/24 09:58 Exam Data for Last 24 hours Vital signs and Labs for Last 24 Hours: Temp Pulse Resp BP Pulse Ox O2 Del Method O2 Flow Rate 98.4 F 71 17 128/69 97 Nasal Cannula 2 08/17/24 11:11 08/17/24 13:45 08/17/24 13:45 08/17/24 13:45 08/17/24 13:45 08/17/24 13:45 08/17/24 13:45 Laboratory Results - last 24 hr 08/17/24 09:36: WBC 10.8, RBC 5.60 H, Hgb 15.5, Hct 47.5 H, MCV 84.8, MCH 27.7, MCHC 32.6, RDW 14.6, Plt Count 333, MPV 11.2 H, Neut % (Auto) 65.7, Lymph % (Auto) 25.2, [place] % (Auto) 5.2, Eos % (Auto) 2.7, Baso % (Auto) 0.7, Neut # (Auto) 7.1, Lymph # (Auto) 2.7, [place] # (Auto) 0.6, Eos # (Auto) 0.3, Baso # (Auto) 0.1, APTT 24.5, Sodium 138, Potassium 4.0, Chloride 103, Carbon Dioxide 28, Anion Gap 11.0, BUN 8, Creatinine 0.50 L, Estimated Creat Clear 180, Estimated GFR 128, Est GFR ( Amer) 154, Glucose 140 H, Calcium 10.0, Total Bilirubin 0.5, AST 31, ALT 27, Alkaline Phosphatase 137 H, Troponin I 0.05 H, Total Protein 7.4, Albumin 4.5, Globulin 2.9, Albumin/Globulin Ratio 1.6, Lipase 52 08/17/24 09:46: D-Dimer 0.42 08/17/24 11:01: Activated Clotting Time > 400 H* 08/17/24 13:15: Troponin I 10.20 H I & O for Last 24 hours: Intake & Output 08/14/24 08/15/24 08/16/24 08/17/24 23:59 23:59 23:59 23:59 Weight 90.265 kg *Routine HEENT Exam Head: Present normocephalic and atraumatic Eye: Present EOMI and PERRL ENT: Present mucous membranes moist *Routine Respiratory Exam Respiratory: Present CTA bilaterally, normal respiratory effort and symmetric chest movement *Routine Cardiovascular Exam Cardiovascular: Present RRR *Routine Abdominal Exam Abdominal: Present soft and normoactive bowel sounds; Absent tenderness or distended *Routine Rectal Exam Rectal:: deferred *Routine Genitalia Exam Genitalia:: deferred Assessment and Plan *Assessment and plan (1) Acute coronary syndrome: Status: Acute Category: Medical Code(s): I24.9 - Acute ischemic heart disease, unspecified (2) Unstable angina: Status: Acute Category: Medical Code(s): I20.0 - Unstable angina (3) COPD (chronic obstructive pulmonary disease): Status: Acute Qualifiers: COPD type: unspecified COPD Qualified Code(s): J44.9 - Chronic obstructive pulmonary disease, unspecified Category: Medical Code(s): J44.9 - Chronic obstructive pulmonary disease, unspecified (4) Fibromyalgia: Status: Acute Category: Medical Code(s): M79.7 - Fibromyalgia (5) Tobacco use disorder: Status: Acute Category: Medical Code(s): F17.200 - Nicotine dependence, unspecified, uncomplicated Plan Ms. Chua is a 58-year-old female who has a history of COPD, fibromyalgia, and migraines; who presented to the emergency department today with complaints of substernal chest pain that radiated to her back and down her left arm. She was taken to the [facility] for left heart cath, she received 1 stent to the diagonal artery. I was consulted for admission for telemetry monitoring, and further management of patient listed below: #Unstable angina #Acute coronary syndrome ?Left heart cath with successful stenting of the first diagonal artery. ?Patient [facility] floor for clinical close monitoring, with telemetry. DAPT therapy started with Effient 10 mg p.o. daily and aspirin 81 mg p.o. daily. ?Echocardiogram performed, currently pending. ?Goal of LDL less than 55, lipid panel ordered for the morning. ?CBC, BMP, TSH ordered for the morning. ?Cardiology consulted for further workup if necessary. #COPD ?Patient currently on room air, denies any shortness of breath O2 saturation 97% on room air. Albuterol inhaler ordered 4 times daily as needed for shortness of breath. Lungs clear to auscultation. #Fibromyalgia ?Patient currently takes NSAIDs?piroxicam 20 mg daily at home for fibromyalgia pain. Currently holding medication due to cardiac event, heart cath. Ordered Tylenol 650 mg every 6 hours as needed for pain. #Tobacco use disorder ?Patient states that she smokes about 1 to 1-1/2 packs of cigarettes per day. Discussed smoking cessation. ?Nicotine patches daily ordered as needed. Full code Cardiac diet Ambulate as tolerated Lovenox 40 mg subcu?VTE prophylaxis
[2024-08-17] MEDS: NICOTINE 21MG/24HR PATCH 21 MG TD (16:50)
--- NOTE | 2024-08-17 17:22 | PC.NURSE ---
report given to REED Oviedo
[2024-08-18] VITALS: BP 121/62; PULSE 86; PULSE 90; RESP 18; TEMP 36.6; O2SAT 94
[2024-08-18 03:51] VITALS: BP 121/66; PULSE 85; RESP 18; TEMP 36.6; O2SAT 95
[2024-08-18 04:00] VITALS: PULSE 90; BMI 34.9
--- NOTE | 2024-08-18 04:20 | PC.NURSE ---
Patient is alert and oriented x4. She was observed to have eyes closed, respirations even and unlabored on room air, and no apparent distress throughout the majority of the night. Patient ambulated once around the hallway, yesterday evening, with her at her side. has remained at the bedside this shift. Right radial cath site was assessed; dressing remains in place (clean, dry, intact). Pulses +2, skin temperature warm, even with surrounding areas. Scheduled medications administered per MAY. Auscultation of heart within normal findings. Lung sounds diminished. Patient ambulates independently without any difficulties, gait steady. Vital signs stable. At this time, the patient is resting in bed without any further complaints. No new needs thus far. Call light within reach.
[2024-08-18 07:08] LABS: Basophils # 0.1 K/mm3 (0-0.2); Eosinophils # 0.3 Kmm3 (0.0-0.4); Eosinophils % 3.4 % (0.1-12.0); Hematocrit 41.7 % (37.0-47.0); Immature Granulocytes # 0.03 10^3uL; Immature Granulocytes % 0.4 %; Lymphocytes # 2.5 K/mm3 (0.7-4.5); Mean Corpuscular HGB Conc 32.6 g/dL (31.8-35.4); Mean Corpuscular Hemoglobin 27.5 pg (27.0-31.2); Mean Corpuscular Volume 84.2 fl (81-99); Mean Platelet Volume 11.2 fl (7.4-10.4); Monocytes # 0.4 K/mm3 (0.1-1.0); Monocytes % 4.9 % (1.7-9.3); Neutrophils % 60.3 % (37.0-80.0); Nucleated Red Blood Cells # 0 10^3/uL; Nucleated Red Blood Cells % 0 %; Platelet Count 282 K/mm3 (142-424); Red Blood Count 4.95 M/mm3 (4.20-5.40); Red Cell Distribution Width 14.5 % (11.5-17.5); Red Cell Distribution Width-SD 44.3 fL; White Blood Count 8.3 K/mm3 (4.8-10.8)
[2024-08-18 07:16] LABS: Chloride 106 mmol/L (98-107); Potassium 3.5 mmoL/L (3.5-5.1); Sodium 138 mmol/L (136-145)
[2024-08-18 07:19] LABS: Anion Gap 8.5 mEq/L (5-15); Blood Urea Nitrogen 11 mg/dl (7-17); Carbon Dioxide 27 mmol/L (22.0-30.0); Creatinine Clearance Estimated 184 mL/min (50-200); Estimated Glomerular Filt Rate 128 ml/min (>60); GFR (African American) 154 ML/MIN (>60); Glucose 106 mg/dl (74-100)
[2024-08-18 07:39] LABS: Hemoglobin 13.6 g/dL (12.2-16.2)
[2024-08-18 07:47] LABS: Thyroid Stimulating Hormone 3.29 uIU/mL (0.465-4.68)
[2024-08-18 07:48] LABS: Chol/HDL Ratio 5.8 (1-3.5); Cholesterol 210 mg/dl (140-200); HDL Cholesterol 36 mg/dl (40-60); Magnesium 1.7 mg/dl (1.6-2.3); Triglycerides 173 mg/dl (30-150); VLDL Cholesterol 35 mg/dL (0-40)
[2024-08-18 07:58] LABS: Direct LDL Cholesterol 131.09 mg/dL (100-129)
[2024-08-18 08:00] VITALS: BP 131/82; PULSE 84; RESP 18; TEMP 36.6; O2SAT 94
[2024-08-18] MEDS: ASPIRIN EC 81MG TABLET 81 MG PO (09:12)
[2024-08-18] MEDS: ENOXAPARIN 40MG/0.4ML SYRINGE 40 MG SUBCUT (09:12)
[2024-08-18] MEDS: PRASUGREL 10MG TAB 10 MG PO (09:12)
[2024-08-18 11:48] VITALS: BP 155/76; PULSE 75; RESP 18; TEMP 36.5; O2SAT 97
[2024-08-18] MEDS: NICOTINE 21MG/24HR PATCH 21 MG TD (12:04)
--- NOTE | 2024-08-18 13:22 | EXP.DC.SUM ---
General Admission date:: 08/17/24 HPI HPI HPI: Ms. Chua is a 58-year-old female who has a history of COPD, fibromyalgia, and migraines; who presented to the emergency department today with complaints of substernal chest pain that radiated to her back and down her left arm. She states that it woke her up in the middle of the night and continued throughout the morning before she came to the emergency department. An EKG was performed and was found to have ST depressions in 2, 3, aVF, in addition her troponin was slightly elevated at 0.05. She also had a chest x-ray that showed no acute processes. Patient denies shortness of breath, nausea, vomiting, abdominal pain, or weakness. Cardiology was consulted and it was determined that she needed to go to the [facility] emergently. Patient had a left heart cath, and received 1 stent to the first diagonal artery. Normal ejection fraction noted, elevated LVEDP. Hospital medicine was consulted and and agreed to admit the patient for close monitoring with telemetry for 48 hours post STEMI. Hospital Course Hospital Course Hospital Course: Ms. Chua is a 58-year-old female who has a history of COPD, fibromyalgia, and migraines who presented to the emergency department with complaints of substernal chest pain that radiated to her back and down her left arm. Found to have STEMI and received 1 stent to the diagonal artery. #STEMI #CAD #Hyperlipidemia ? Found to be in STEMI with ST elevation in lead aVR, troponinemia. ? Cardiology consulted, s/p PCI with 1 stent to first diagonal artery. Patient tolerated procedure well. ? Monitored with telemetry overnight without acute events. Patient remained chest pain-free, no shortness of breath. ? ECHO shows LVEF 60%. LDL 131, TSH normal. A1c pending at this time. ? Started on aspirin 81 mg, prasugrel 10 mg, rosuvastatin 20 mg, metoprolol succinate 25 mg, losartan 25 mg. ? Spoke with Dr. Crowley, given stability of patient we will discharge patient with close follow-up with cardiology within 1 week. #COPD ? Asymptomatic. Albuterol as needed. #Fibromyalgia ? Hold home NSAIDs due to recent ACS. #Tobacco use disorder ? Extensive discussion, patient initially very reluctant but amenable to discontinuing to smoke after discussion with family. Prescribed nicotine patches. Total time spent on discharge: 39 minutes on chart review, counseling, documentation, and direct care with patient. Exam Data for Last 24 hours Vital signs and Labs for Last 24 Hours: Temp Pulse Resp BP Pulse Ox O2 Del Method O2 Flow Rate 97.7 F 75 18 155/76 H 97 Room Air 2 08/18/24 11:48 08/18/24 11:48 08/18/24 11:48 08/18/24 11:48 08/18/24 11:48 08/18/24 11:48 08/17/24 13:45 Laboratory Results - last 24 hr 08/17/24 11:01: Activated Clotting Time > 400 H* 08/17/24 13:15: Troponin I 10.20 H 08/18/24 06:35: WBC 8.3, RBC 4.95, Hgb 13.6 D, Hct 41.7, MCV 84.2, MCH 27.5, MCHC 32.6, RDW 14.5, Plt Count 282, MPV 11.2 H, Neut % (Auto) 60.3, Lymph % (Auto) 30.0, [place] % (Auto) 4.9, Eos % (Auto) 3.4, Baso % (Auto) 1.0, Neut # (Auto) 5.0, Lymph # (Auto) 2.5, [place] # (Auto) 0.4, Eos # (Auto) 0.3, Baso # (Auto) 0.1, Sodium 138, Potassium 3.5, Chloride 106, Carbon Dioxide 27, Anion Gap 8.5, BUN 11 D, Creatinine 0.50 L, Estimated Creat Clear 184, Estimated GFR 128, Est GFR ( Amer) 154, Glucose 106 H D, Calcium 9.0, Magnesium 1.7, Triglycerides 173 H, Cholesterol 210 H, LDL Cholesterol Direct 131.09 H, VLDL Cholesterol 35, HDL Cholesterol 36 L, Cholesterol/HDL Ratio 5.8 H, TSH 3.29 I & O for Last 24 hours: Intake & Output 08/15/24 08/16/24 08/17/24 08/18/24 23:59 23:59 23:59 23:59 Intake Total 480 / 600 240 / 240 Output Total 500 / 500 Balance 480 / 600 -260 / -260 Weight 90.265 kg 92.703 kg Constitutional Constitutional: no acute distress and obese *Routine HEENT Exam Head: Present normocephalic Eye: Present EOMI and PERRL ENT: Present mucous membranes moist *Routine Neck Exam Neck: Present supple; Absent lymphadenopathy *Routine Respiratory Exam Respiratory: Present CTA bilaterally *Routine Cardiovascular Exam Cardiovascular: Present RRR *Routine Abdominal Exam Abdominal: Present soft and normoactive bowel sounds; Absent tenderness *Routine Extremities Exam Extremities: Absent cyanosis, clubbing or edema *Routine Skin Exam Skin: Present warm; Absent rash *Routine Neurological Exam Neurological: Present alert and oriented X3 Results Data Completed and Pending Labs on day of discharge: Labs from last 24 hours 08/18/24 08/17/24 08/17/24 06:35 13:15 11:01 WBC 8.3 RBC 4.95 Hgb 13.6 D Hct 41.7 MCV 84.2 MCH 27.5 MCHC 32.6 RDW 14.5 Plt Count 282 MPV 11.2 H Neut % (Auto) 60.3 Lymph % (Auto) 30.0 [place] % (Auto) 4.9 Eos % (Auto) 3.4 Baso % (Auto) 1.0 Neut # (Auto) 5.0 Lymph # (Auto) 2.5 [place] # (Auto) 0.4 Eos # (Auto) 0.3 Baso # (Auto) 0.1 Activated Clotting Time > 400 H* Sodium 138 Potassium 3.5 Chloride 106 Carbon Dioxide 27 Anion Gap 8.5 BUN 11 D Creatinine 0.50 L Estimated Creat Clear 184 Estimated GFR 128 Est GFR ( Amer) 154 Glucose 106 H D Calcium 9.0 Magnesium 1.7 Troponin I 10.20 H Triglycerides 173 H Cholesterol 210 H LDL Cholesterol Direct 131.09 H VLDL Cholesterol 35 HDL Cholesterol 36 L Cholesterol/HDL Ratio 5.8 H TSH 3.29 DS: Diagnosis Discharge Diagnosis (1) Acute coronary syndrome: Status: Acute Code(s): I24.9 - Acute ischemic heart disease, unspecified (2) Unstable angina: Status: Acute Code(s): I20.0 - Unstable angina (3) COPD (chronic obstructive pulmonary disease): Status: Acute Code(s): J44.9 - Chronic obstructive pulmonary disease, unspecified Qualifiers: COPD type: unspecified COPD Qualified Code(s): J44.9 - Chronic obstructive pulmonary disease, unspecified (4) Fibromyalgia: Status: Acute Code(s): M79.7 - Fibromyalgia (5) Tobacco use disorder: Status: Acute Code(s): F17.200 - Nicotine dependence, unspecified, uncomplicated (6) STEMI (ST elevation myocardial infarction): Status: Acute Code(s): I21.3 - ST elevation (STEMI) myocardial infarction of unspecified site Meds Home Medications and Allergies Home Medications ?Medication ?Instructions ?Recorded ?Confirmed ?Type piroxicam 20 mg capsule (Feldene) 20 mg PO DAILY #90 caps 05/21/24 08/17/24 Rx Held on 08/18/24. Instructions: Resume on 09/01/24. Hold this medication until you follow-up with cardiology as it can affect cardiac healing. albuterol sulfate 90 mcg/actuation 1 inh inhalation QIDP PRN 08/17/24 08/17/24 History aerosol inhaler shortness of breath or wheezing aspirin 81 mg tablet 81 mg PO DAILY #30 tabs 08/17/24 Rx prasugrel HCl 10 mg tablet 10 mg PO DAILY #30 tabs 08/17/24 Rx (Effient) sumatriptan succinate 100 mg 100 mg PO NEEDED PRN migraine 08/17/24 08/17/24 History tablet (Imitrex) headache losartan 25 mg tablet 25 mg PO DAILY #30 tabs 08/18/24 Rx metoprolol succinate 25 mg 25 mg PO DAILY #30 tabs 08/18/24 Rx tablet,extended release 24 hr nicotine 21 mg/24 hr daily 1 patch transdermal DAILY #28 ea 08/18/24 Rx transdermal patch rosuvastatin 20 mg tablet 20 mg PO DAILY #30 tabs 08/18/24 Rx New Prescriptions to Start Prescriptions: eDrrick Mattson losartan Lala,Marcello metoprolol succinate Lala,Marcello nicotine Lala,Marcello prasugrel HCl [Effient] Derrick Crowley rosuvastatin Marcello Reeves Allergies Allergy/AdvReac Type Severity Reaction Status Date / Time Phenylpiperazine AdvReac Severe Irritable Verified 05/21/24 09:58 Antidepressant Tetracyclic Antidepressants AdvReac Severe Irritable Verified 05/21/24 09:58 Discharge Plan Disposition Patient Disposition: Home, Self-Care Condition: Fair Discharge Order Discharge Orders: Discharge Order (Routine); Ordered 08/18/24 Ordered By: Marcello Reeves Follow up Plan Follow up with: Roberth Downey PA [Physician Student Ambassador, Cardiology] - 08/28/24 10:45 am Albaro Fields MD [Primary Care Provider, Family Practice] - 09/03/24 10:00 am Prescriptions/Medication Reconciliation: New aspirin 81 mg Tablet 81 mg PO DAILY Qty: 30 6RF prasugrel HCl [Effient] 10 mg Tablet 10 mg PO DAILY Qty: 30 6RF rosuvastatin 20 mg tablet 20 mg PO DAILY Qty: 30 0RF metoprolol succinate 25 mg tablet extended release 24 hr 25 mg PO DAILY Qty: 30 0RF losartan 25 mg tablet 25 mg PO DAILY Qty: 30 0RF nicotine 21 mg/24 hr patch 24 hour 1 patch transdermal DAILY Qty: 28 0RF Continued sumatriptan succinate [Imitrex] 100 mg tablet 100 mg PO NEEDED PRN (Reason: migraine headache) Rx Instructions: do not exceed 2 doses per 24 hrs albuterol sulfate 90 mcg/actuation HFA aerosol inhaler 1 inh INHALATION QIDP PRN (Reason: shortness of breath or wheezing) Held piroxicam [Feldene] 20 mg capsule 20 mg PO DAILY Qty: 90 3RF Hold Instructions: Resume on 09/01/24. Hold this medication until you follow-up with cardiology as it can affect cardiac healing. Other Ambulatory Orders: Basic Metabolic Panel (Timed) Timeframe: 20240828 Facility: [facility] - Location: Laboratory Ordered By: Roberth Downey Complete Blood Count Auto Diff (Timed) Timeframe: 20240828 Facility: [facility] - Location: Laboratory Ordered By: Roberth Downey Problem Reconciliation Problems Reviewed?: Yes Patient Discharge Instructions Patient Instructions: DI for Heart Attack, DI for Cardiac Catheterization, DI for Surgical Site Infection Print Language: Turkmen Providers Primary Care Provider: Albaro Fields Admit Provider: Marcello Reeves Attending Provider: Marcello Reeves
--- NOTE | 2024-08-20 11:22 | SW/DCPLANNER ---
Spoke with patient on the phone. Patient stated that she is doing good. Patient stated that she is aware of her upcoming appointments. Patient stated that she was able to get her new medicine picked up from clinic pharmacy and [facility]. Patient asked what if she gets a migraine can she take a certain medicine and i suggested that she needs to talk to her primary care provider. Patient stated that she has no other concerns or questions at this time. Kike Ernandez
== END 2024-08-18 14:25 | disposition home or self-care (01) | DRG 322 ==
LOC: ER 11:00 → CATHLAB 11:03 → ICU 11:44 → 2ND 17:43
PROVIDERS: Internal Medicine; Admitting Provider Student in an Organized Health Care Education/Training Program; Emergency Provider Emergency Medicine; PCP Family Medicine; Visit Provider Student in an Organized Health Care Education/Training Program
PROC: 4A023N7 Measurement of Cardiac Sampling and Pressure, Left Heart, Percutaneous Approach (ICD-10-PCS; CPT 93452; principal; 2024-08-17 10:45)
DX: I21.29 ST elevation (STEMI) myocardial infarction involving other sites (principal); E78.5 Hyperlipidemia, unspecified; I25.110 Atherosclerotic heart disease of native coronary artery with unstable angina pectoris; J44.9 Chronic obstructive pulmonary disease, unspecified; M79.7 Fibromyalgia; G43.909 Migraine, unspecified, not intractable, without status migrainosus; F17.210 Nicotine dependence, cigarettes, uncomplicated; I10 Essential (primary) hypertension; Z79.82 Long term (current) use of aspirin; Z79.899 Other long term (current) drug therapy; Z88.8 Allergy status to other drugs, medicaments and biological substances
CPT/HCPCS: 36415; 71045; 80048; 80053; 80061; 83690; 83735; 84443; 84484; 85025; 85347; 85378; 85730; 93005; 93306; 99152; C1725; C1769; C1874; J1200; J1644; J1650; J2250; J3010; Q9967

== ENCOUNTER 2024-08-28 10:18 | Outpatient (CLI) | payer MEDICAID, SELFPAY ==
--- OUTSIDE RECORDS SUMMARY | 2024-07-25 07:53 | XMS_ITS | Encounter Summary ---
Author Organization [facility] Address [address] [place] [id number] Phone Care Team Providers Care Senior Branch Manager Name Role Phone Albaro Fields MD Primary Care Provider [phone] Encounter Details Date Type Department Care Team (Late st Contact Info) Description 07/25/2024 7:53 AM EDT Anesthesia Event [facility] [address] [place], [place] [id number] Rachele Jordan CRNA [address] [facility] [address] [place] [address] Derrick Fish MD [address] [facility] [address] [place] [id number] Anesthesia Record Procedure Summary Procedure Name Responsible Anesthesiologist Anesthesia Start Time Anesthesia Stop Time ANKLE ARTHROSCOPY EXCISION/DRILLING AND REPAIR OSTEOCHONDRAL DISSECANS LESION TALUS (Left: Foot/Ankle) Rachele Jordan CRNA 07/25/24 0753 07/25/24 0839 Events Date Time Event Comment 07/25/2024 0708 0737 AN Equip Check 0753 An Start 0754 An Start Data 0754 Immediate Pre Anesthetic Ass es 0759 An Induction 0801 An LMA 0802 Anesthesia Ready 0812 Time out 0813 An Tourn Inflated 0813 Incision 0827 An Emergence 0829 An Tourn Deflated 0834 Airway Removed 0836 an stop data 0839 Handoff I completed my SBAR handoff to the receiving nurse which has included the followin. Identification of the patient, family, or patient surrogate 2. Identification of the responsible practitioner 3. Pertinent medical history 4. Surgical procedure and reason for procedure 5. Intraoperative anesthetic management 6. All current lines, drains and respiratory support. 7. Outstanding follow up orders (X-rays, consults etc) 8. Expectations/Plans for the early post-procedure period 9. 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 Lines, Drains, and Airways Type Details Placement Removal Peripheral IV 07/25/24; 0647; 22; Posterior, Right; Hand; pal rn; 1; 07/25/24; 0908; Discharged; Catheter intact, Dressing applied, No Complications 07/25/24 0647 by Shayy Graves, REED 07/25/24 0908 by Mirna Padilla, RN Airway Device: LMA; Size: 4 ; Placement Date: 07/25/24; Placement Time: 0812 (created via procedure documentation); Removal Date: 07/25/24; Removal Time: 0834 07/25/24 0812 by Rachele Jordan CRNA 07/25/24 0834 by Rachele Jordan CRNA Incision/Wound 07/25/24; 0814; Clos ed Surgical; Ankle/Malleolus; Left, Anterior; 07/26/24; 0411 07/25/24 0814 by Elsa Jara RN 07/26/24 0411 by Discharge Provider, Automatic documented in this encounter Social History Tobacco Use Types Packs/Day Years Used Date Smoking Tobacco: Some Days Cigarettes 1 0.2 Started: 06/2024 Smokeless Tobacco: Never Alcohol Use Standard Drinks/Week Comments No 0 (1 standard drink = 0.6 oz pur e alcohol) Comments No Sex and Gender Information Value Date Recorded Sex Assigned at Not on file Legal Sex Female 10:58 AM EST Gender Identity Not on file Sexual Orientation Not on file documented as of this encounter Procedure Notes * Rachele Jordan CRNA - 07/25/2024 8:12 AM EDTAssociated Order(s): Intraop Airway Placement Intraop Airway Placement: Date/Time: 07/25/2024 8:12 AM Induction type: IV Mask size: Standard adult Pre-Oxygenation: Standard Mask ventilation: Easy mask ventilation Airway type: LMA Topical Anesthetic/Lubricant: Lubricant jelly Airway location: Oral Device size: 4 Measured from: Lips Placement verified: Auscultation, End tidal CO2 and Symmetric chest wall motion Condition: Atraumatic and Unchanged Insertion attempts: 1 Title: TABATHA documented in this encounter OR Notes * Anesthesia Postprocedure Evaluation - Omid Quach DO - 07/25/2024 8:52 AM EDT Post-Anesthesia Evaluation Note Patient Name: Kathy Chua Patient Date: July 25, 2024 Post-Anesthesia Evaluation Patient Location: PACU Post op vitals: stable Difficult airway: no Nausea controlled: yes Level of consciousness: awake Post anesthesia pain: adequate analgesia Airway patency: patent Respiratory status: room air Cardiovascular status: stable Hydration status: euvolemic Temperature: Normothermia Perioperative complications: NONE Vitals Value Taken Time BP 126/62 07/25/24 08:50 Resp 15 07/25/24 08:50 SpO2 92 % 07/25/24 08:50 Temp 36.5 ??C (97.7 ??F) 07/25/24 08:40 Pulse 78 07/25/24 08:50 * Anesthesia Preprocedure Evaluation - Rachele Jordan CRNA - 07/04/2024 1:31 PM EDT Pre-Anesthesia Evaluation Note Patient Name: Kathy Chua Sex: female Patient : 1965 Age: 58 y.o. Patient Date: July 04, 2024 Procedure(s): Left Ankle Arthroscopy, excision drilling osteochondral lesion talus Anesthesia Evaluation Previous anesthesia. 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 Anesthesia Plan ASA 2 Last solid intake: The patient has not eaten within the last 8 hours. Last clear liquid intake: The patient has not had clear liquids within the last 2 hours. Last tobacco use: The patient has not used tobacco today. Anesthesia Plan: general Induction: intravenous Monitors: STD Informed consent Anesthetic plan and risks discussed with: patient. Chart Reviewed and patient examined documented in this encounter Plan of Treatment Upcoming Encounters Date Type Department Care Team (Late st Contact Info) Description 08/30/2024 10:30 AM EDT Office Visit [facility] [address] [place] [address] Hair Villagomez PA-C [address] [place] [address] documented as of this encounter Procedures Procedure Name Priority Date/Time Associated Diagnosis Comments INTRAOP AIRWAY PLACEMENT Routine 07/25/2024 8:12 AM EDT documented in this encounter Results * INTRAOP AIRWAY PLACEMENT (07/25/2024 8:12 AM EDT) Narrative [facility] - 07/25/2024 8:12 AM EDT Rachele Jordan S IRON WORKER 07/25/2024 8:12 AM Intraop Airway Placement: Date/Time: 07/25/2024 8:12 AM Induction type: IV Mask size: Standard adult Pre-Oxygenation: Standard Mask ventilation: Easy mask ventilation Airway type: LMA Topical Anesthetic/Lubricant: Lubricant jelly Airway location: Oral Device size: 4 Measured from: Lips Placement verified: Auscultation, End tidal CO2 and Symmetric chest wall motion Condition: Atraumatic and Unchanged Insertion attempts: 1 Title: S IRON WORKER us Rachele Jordan S IRON WORKER AL ANESTHESIA Final Re sult [facility] [address] [place] [address] documented in this encounter Visit Diagnoses Not on filedocumented in this encounter Administered Medications Inactive Administered Medications - up to 1 most recent administrations Medication Order MAR Action Action Date Dose Rate Site ceFAZolin (ANCEF) 2 g in sodium chloride IVPB 2 g, Intravenous, ONCE PREPROCEDURE, 1 dose, On Tue07/25/24 at 0615, Administer over 30 Minutes, Patient body weight less than 120 kg and if nasal cultures are negative, pending or unknown for MRSA or positive for MSSA, give: ceFAZolin (ANCEF) 2 g IVPB 30 minutes pre-op if patient weighs less than 120 kg., Reason for Therapy: Surgical Prophylaxis, Pre-op (Antibiotic) New Bag 07/25/2024 8:04 AM EDT 2 g dexAMETHasone (DECADRON) injection Intravenous, PRN (Anesthesia), Starting on Tue07/25/24 at 0805, Until Tue07/25/24 at 0839, Anesthesia Intra-op Given 07/25/2024 8:05 AM EDT 8 mg fentaNYL (SUBLIMAZE) injection Intravenous, PRN (Anesthesia), Starting on Tue07/25/24 at 0802, Until Tue07/25/24 at 0839, Anesthesia Intra-op Given 07/25/2024 8:11 AM EDT 25 mcg ketorolac (TORADOL) injection Intravenous, PRN (Anesthesia), Starting on Tue07/25/24 at 0825, Until Tue07/25/24 at 0839, Anesthesia Intra-op Given 07/25/2024 8:25 AM EDT 30 mg lactated ringers infusion Intravenous, at 100 mL/hr, PREPROCEDURE CONTINUOUS, Starting on Tue07/25/24 at 0601, Until Shania 07/26/24 at 0411, To be given in SDS/Pre-op Holding Area, Pre-op (Holding/SDS Meds) IV Restarted 07/25/2024 8:04 AM EDT lidocaine 1% 10 mg/mL (1 %) injection Intravenous, PRN (Anesthesia), Starting on Tue07/25/24 at 0759, Until Tue07/25/24 at 0839, Anesthesia Intra-op Given 07/25/2024 7:59 AM EDT 50 mg ondansetron (ZOFRAN) injection Intravenous, PRN (Anesthesia), Starting on Tue07/25/24 at 0804, Until Tue07/25/24 at 0839, Anesthesia Intra-op Given 07/25/2024 8:25 AM EDT 4 mg propofoL (DIPRIVAN) injection Intravenous, PRN (Anesthesia), Starting on Tue07/25/24 at 0759, Until Tue07/25/24 at 0839, Anesthesia Intra-op Given 07/25/2024 7:59 AM EDT 200 mg documented in this encounter Care Teams Senior Branch Manager Relationship Specialty Start Date End Date Albaro Fields MD PCP - General Family Medicine 05/08/13 documented as of this encounter
--- OUTSIDE RECORDS SUMMARY | 2024-07-25 08:00 | XMS_ITS | Encounter Summary ---
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, M94.9] Procedures [place] ARTHRS ANKLE EXC OSTCHNDRL DFCT W/DRLG DFCT Left Ankle Arthroscopy, excision drilling osteochondral lesion talus [facility] [address] [place] [phone] Phone: tel: fax: Referral ID Status Reason Start Date Expiration Date Visits Re quested Visits Authorized [id number] 1 1 Encounter Details Date Type Department Care Team (Late st Contact Info) Description 07/25/2024 8:00 AM EDT - 07/25/2024 11:59 PM EDT Hospital Encounter [facility] [address] [place], [place] [id number] Neil Boston MD [address] [address] Discharge Disposition: Home or Self [...] and [facility] DISCHARGE INSTRUCTIONS: READ THIS! 1. READ THESE [...] the office as soon as possible at [phone] to confirm or schedule a follow up visit with TONI Weathers in 12-16 days at our [facility] location. 12. Take 800mg Ibuprofen 3 times [...] of liver disease or you are prescribed [place] (Hydrocodone/APAP). 14. A prescription will be sent [...] requesting pain medication refills thru the pharmacy. [facility] Discharge Instructions - Following Anesthesia We [...] our office at . [facility]! [facility] * Attachments The following attachments cannot be sent through Care Everywhere. * How to Use an Incentive Spirometer (Angolan) documented in this encounter Medications at Time of Discharge albuterol (PROVENTIL HFA;VENTOLIN HFA) 90 mcg/actuation Inhl [...] by mouth once as needed for Migraine. UNABLE TO FIND Take 20 mg by mouth daily. Med Name: Piroxican acetaminophen (TYLENOL) 500 mg Oral Tablet Take [...] osteochondral lesion talus Surgeon: Neil Boston MD Bow Maker Custom: TONI Pickett A skilled surgical scrub tech was utilized and medically essential to the procedure. The skilled director of first impressions was necessary for positioning of the extremity during the procedure, as well as assisting with instrumentation and careful retraction of vital structures. The skilled director of first impressions was responsible for maintaining position of the foot and ankle in the appropriate position so thatthe surgeon had the availability of two hands free for doing dissection of vital structures, visualizing the surgical field and images, and also placing any implants necessary for the surgery. The skilled director of first impressions was also utilized for incisional closure. Anesthesia: [...] No alcohol 24 hours prior to surgery. Top Stop Attacher It is important to have a Top Stop Attacher, someone who is 18 years or older, [...] please reach out to our department at [phone]. Hygiene [place] your teeth and gargle the morning of [...] or near the operative area. Remove nail eritrean prior to surgery. This includes artificial nails and gel nail eritrean. Personal Items Wear clean, simple, loose-fitting clothing [...] your Living Will and/or Durable Power of Lay Out Machine Operator for Healthcare. Bring any medical equipment that your surgeon advises you to use for postoperative care such as braces, slings, boots, crutches, walkers, etc. Notify the Surgeon Notify your surgeon if you develop any illness (fever, cold, cough, sore throat, nausea, vomiting, skin rashes etc.) between now and surgery time Notify your surgeon and Pre-admission testing ([phone]) if you have any changes in your healthconditions or if any new medications are ordered between now and surgery. Questions or Concerns? If you have any questions or concerns, feel free to call the Pre-Admission testing department at [phone]. We want to make sure you feel safe and have an excellent experience while you are here. Our address is [address] [place] [address] Do not reply to this message through [employer] as it may not be answered promptly. documented in this encounter Plan of Treatment Upcoming Encounters Date Type Department Care Team (Late st Contact Info) Description 08/30/2024 10:30 AM EDT Office Visit [facility] [address] [place] [address] Hair Villagomez PA-C [address] [place] [address] documented as of this encounter Procedures Procedure Name Priority Date/Time Associated Diagnosis Comments [place] ARTHRS ANKLE EXC OSTCHNDRL DFCT W/DRLG DFCT [...] (NICODERM CQ) 21 mg/24 hr patchIndications:Fibro myalgia,OA (osteoarthritis),[place] krysta C-reactive protein (CRP),Elevated white blood cell count,Elevated hemoglobin,Smoker,Medi cation monitoring encounter Place 1 Patch onto the skin daily. Stop Taking at Discharge 07/25/2024 HYDROcodone-acetaminop hen (NORCO) 7.5-325 mg per tabletIndications:Fibr omyalgia,OA (osteoarthritis),[place] krysta C-reactive protein (CRP),Elevated white blood cell count,Elevated hemoglobin,Smoker,Medi cation monitoring encounter Take 1 Tab by mouth as needed for Pain. Stop Taking at Discharge 07/25/2024 naproxen (NAPROSYN) 500 mg tabletIndications:Fibr omyalgia,OA (osteoarthritis),[place] krysta C-reactive protein (CRP),Elevated white blood cell count,Elevated hemoglobin,Smoker,Medi cation monitoring encounter Take 500 mg by mouth 2 times daily. Stop Taking at Discharge 07/25/2024 cyclobenzaprine (FLEXERIL) 10 mg tabletIndications:Fibr omyalgia,OA (osteoarthritis),[place] krysta C-reactive protein (CRP),Elevated white blood cell [...] 25 documented in this encounter Care Teams Button And Buckle Maker Relationship Specialty Start Date End Date Albaro Fields MD PCP - General Family Medicine 05/08/13 documented as of this encounter
--- OUTSIDE RECORDS SUMMARY | 2024-07-25 08:00 | XMS_ITS | Encounter Summary ---
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, M94.9] Procedures [place] ARTHRS ANKLE EXC OSTCHNDRL DFCT W/DRLG DFCT Left Ankle Arthroscopy, excision drilling osteochondral lesion talus [facility] [address] [place] [phone] Phone: tel: fax: Referral ID Status Reason Start Date Expiration Date Visits Re quested Visits Authorized [id number] 1 1 Encounter Details Date Type Department Care Team (Late st Contact Info) Description 07/25/2024 8:00 AM EDT - 07/25/2024 8:45 AM EDT Surgery [facility] [address] [place] [address] Neil Boston MD 2626 [facility] [address] [place] [address] ANKLE ARTHROSCOPY EXCISION/DRILLING AND REPAIR OSTEOCHONDRAL [...] the office as soon as possible at [phone] to confirm or schedule a follow up visit with TONI Weathers in 12-16 days at our [facility] location. 12. Take 800mg Ibuprofen 3 [...] of liver disease or you are prescribed [place] (Hydrocodone/APAP). 14. A prescription will be sent [...] requesting pain medication refills thru the pharmacy. [facility] Discharge Instructions - Following Anesthesia We [...] our office at . [facility] Well Soon! [facility] * Attachments The following attachments cannot be sent through Care Everywhere. * How to Use an Incentive Spirometer (Saudi Arabian) documented in this encounter Medications at Time [...] osteochondral lesion talus Surgeon: Neil Boston MD Stitch Cleaner: TONI Pickett A skilled surgical orderly was utilized and medically essential to the procedure. The skilled first coat operator was necessary for positioning of the extremity during the procedure, as well as assisting with instrumentation and careful retraction of vital structures. The skilled first coat operator was responsible for maintaining position of the foot and ankle in the appropriate position so thatthe surgeon had the availability of two hands free for doing dissection of vital structures, visualizing the surgical field and images, and also placing any implants necessary for the surgery. The skilled first coat operator was also utilized for incisional closure. Anesthesia: [...] No alcohol 24 hours prior to surgery. Photoengraving Proofer It is important to have a Photoengraving Proofer, someone who is 18 years or older, [...] please reach out to our department at [phone]. Hygiene [place] your teeth and gargle the morning of [...] or near the operative area. Remove nail tanzanian prior to surgery. This includes artificial nails and gel nail tanzanian. Personal Items Wear clean, simple, loose-fitting clothing [...] your Living Will and/or Durable Power of Cash Accountant for Healthcare. Bring any medical equipment that your surgeon advises you to use for postoperative care such as braces, slings, boots, crutches, walkers, etc. Notify the Surgeon Notify your surgeon if you develop any illness (fever, cold, cough, sore throat, nausea, vomiting, skin rashes etc.) between now and surgery time Notify your surgeon and Pre-admission testing ([phone]) if you have any changes in your healthconditions or if any new medications are ordered between now and surgery. Questions or Concerns? If you have any questions or concerns, feel free to call the Pre-Admission testing department at [phone]. We want to make sure you feel safe and have an excellent experience while you are here. Our address is [address] [place] [address] Do not reply to this message through [employer] as it may not be answered promptly. documented in this encounter Plan of Treatment Upcoming Encounters Date Type Department Care Team (Late st Contact Info) Description 08/30/2024 10:30 AM EDT Office Visit [facility] [address] [facility] [address] [place] [address] Hair Villagomez PA-C [address] [place] [address] documented as of this encounter Procedures Procedure Name Priority Date/Time Associated Diagnosis Comments [place] ARTHRS ANKLE EXC OSTCHNDRL DFCT W/DRLG DFCT [...] (NICODERM CQ) 21 mg/24 hr patchIndications:Fibro myalgia,OA (osteoarthritis),[place] krysta C-reactive protein (CRP),Elevated white blood cell count,Elevated hemoglobin,Smoker,Medi cation monitoring encounter Place 1 Patch onto the skin daily. Stop Taking at Discharge 07/25/2024 HYDROcodone-acetaminop hen (NORCO) 7.5-325 mg per tabletIndications:Fibr omyalgia,OA (osteoarthritis),[place] krysta C-reactive protein (CRP),Elevated white blood cell count,Elevated hemoglobin,Smoker,Medi cation monitoring encounter Take 1 Tab by mouth as needed for Pain. Stop Taking at Discharge 07/25/2024 naproxen (NAPROSYN) 500 mg tabletIndications:Fibr omyalgia,OA (osteoarthritis),[place] krysta C-reactive protein (CRP),Elevated white blood cell count,Elevated hemoglobin,Smoker,Medi cation monitoring encounter Take 500 mg by mouth 2 times daily. Stop Taking at Discharge 07/25/2024 cyclobenzaprine (FLEXERIL) 10 mg tabletIndications:Fibr omyalgia,OA (osteoarthritis),[place] krysta C-reactive protein (CRP),Elevated white blood cell [...] 07/25/2024 documented in this encounter Care Teams City Superintendent Of Schools Relationship Specialty Start Date End Date Albaro Fields MD PCP - General Family Medicine 05/08/13 documented as of this encounter
--- OUTSIDE RECORDS SUMMARY | 2024-08-07 13:30 | XMS_ITS | Encounter Summary ---
Author Organization [facility] Address [address] [place] [address] Care Team Providers Care Wedding Transportation Driver Name Role Phone Albaro Fields MD Primary Care Provider Reason for Referral * Physical Therapy (Routine) - Pending Review Specialty Diagnoses / Procedures Referred By Lit georges Referred To Contact Diagnoses Osteochondral lesion of talar dome Hair Villagomez PA-C [address] [place] [address] Phone: tel: fax: Referral ID Status Reason Start Date Expiration Date V isits Requested Visits Authorized [id number] Pending Review 08/07/2024 08/07/2025 1 1 Question [...] 08/07/2024 1:30 PM EDT Office Visit [facility] [address] [address] Hair Villagomez PA-C [address] [place] [address] Osteochondral lesion of talar dome [...] Foot and Ankle Surgery and Sports Medicine [email or web address] HPI: Patient status post left ankle surgery. [...] Description 08/30/2024 10:30 AM EDT Office Visit [facility] [address] [place] [address] Hair Villagomez PA-C [address] [place] [address] Scheduled Referrals Name Type Priority Associated Diagnoses Orde r Schedule AMB REFERRAL TO PHYSICAL THERAPY Outpatient Referral Routine Osteochondral lesion of talar dome Ordered: 08/07/2024 documented as of this encounter Visit Diagnoses Diagnosis Osteochondral lesion of talar dome- Primary Disorder of bone and cartilage, unspecified documented in this encounter Care Teams Wedding Transportation Driver Relationship Specialty Start Date End Date Albaro Fields MD PCP - General Family Medicine 05/08/13 documented as of this encounter
--- OUTSIDE RECORDS SUMMARY | 2024-08-09 10:30 | XMS_ITS | Encounter Summary ---
Author Organization [facility] Address [address] [place] [address] Care Team Providers Care Help Desk Agent Name Role Phone Albaro Fields MD Primary Care Provider [phone] Reason for Visit * Physical Therapy (Routine) - Authorization Not Needed Specialty Diagnoses / Procedures Referred By Lit georges Referred To Contact Physical Therapy Diagnoses Left ankle pain, unspecified chronicity Osteochondral lesion of talar dome Neil Boston MD [address] [place] [address] Phone: tel: fax: [facility] [address] [place] [address] Phone: tel: fax: Referral ID Status Reason Start Date Expiration Date Visits Requested Visits Authorized [id number] Authorization Not Needed 06/28/2024 03/06/2025 1 20 Encounter Details Date Type Department Care Team (Latest Contact Info) Description 08/09/2024 10:30 AM EDT Office Visit [facility] [address] [place], [place] [id number] Bela Mccormick, PT [address] [place] [address] Osteochondral lesion of talar dome (Primary Dx); [...] 40' 1 E, 1 TE HEP ID: [id number] Treatment today included: Timed Units: Therapeutic exercise: [...] allow for improved function in the home. senior care goals to be met in 8 weeks: [...] function Plan Patient will continue PT in [facility]. Pt advised to call with questions or concerns. Treatment to include therapeutic exercise, neuromuscular reeducation, manual therapy, therapeutic activity, gait training, vasopneumatic pump, and electrical stimulation. Signature: Bela Mccormick, PT Date: 08/09/2024 [place] License: [id number] documented in this encounter Plan of Treatment Upcoming Encounters Date Type Department Care Team (Late st Contact Info) Description 08/30/2024 10:30 AM EDT Office Visit [facility] [address] [facility] [address] [place] [address] Hair Villagomez PA-C [address] [place] [address] Scheduled Referrals Name Type Priority Associated Diagnoses Orde r Schedule AMB REFERRAL TO PHYSICAL THERAPY Outpatient Referral Routine Left Ankle Pain, Unspecified Chronicity Osteochondral lesion of talar dome Ordered: 06/28/2024 documented as of this encounter Visit Diagnoses Diagnosis Osteochondral lesion of talar dome- Primary Disorder of bone and cartilage, unspecified Chronic pain of left ankle documented in this encounter Care Teams Help Desk Agent Relationship Specialty Start Date End Date Albaro Fields MD PCP - General Family Medicine 05/08/13 documented as of this encounter
--- OUTSIDE RECORDS SUMMARY | 2024-08-28 10:21 | XMS_ITS | Encounter Summary ---
Author Organization [facility] Address [address] [place] [address] Care Team Providers Care Rhic Systems Safety Engineer Name Role Phone Albaro Fields MD Primary Care Provider [phone] Reason for Visit * Reason Onset Date Comments Other 07/24/2024 Surgery Arrival Time Encounter Details Date Type Department Care Team (Late st Contact Info) Description 07/24/2024 Telephone [facility] [address] [place] [id number] Neil Boston MD [address] [place] [id number] Other (Surgery Arrival Time) Social History Tobacco [...] am on Tuesday07/25/2024 at [facility] [address] [place] [address]. Patient expressed understanding and will proceed as planned documented in this encounter Plan of Treatment Upcoming Encounters Date Type Department Care Team (Late st Contact Info) Description 08/30/2024 10:30 AM EDT Office Visit [facility] [address] [place] [address] Hair Villagomez PA-C [address] [place] [address] documented as of this encounter Visit Diagnoses Not on filedocumented in this encounter Care Teams Rhic Systems Safety Engineer Relationship Specialty Start Date End Date Albaro Fields MD PCP - General Family Medicine 05/08/13 documented as of this encounter
--- OUTSIDE RECORDS SUMMARY | 2024-08-28 10:21 | XMS_ITS | Encounter Summary ---
Author Organization [facility] Address [address] [place] [address] Care Team Providers Care Branch Lending Officer Name Role Phone Albaro Fields MD Primary Care Provider [phone] Reason for Visit * Reason Onset Date Comments Post-op Call 07/26/2024 Encounter Details Date Type Department Care Team (Late st Contact Info) Description 07/26/2024 Telephone [facility] [address] [employer] [address] [place] [id number] Neil Boston MD [address] [employer] [address] [place] [id number] Post-op Call Social History Tobacco Use Types [...] 10:30 AM EDT Office Visit [facility] [address] [place] [address] Hair Villagomez PA-C [address] [place] [address] documented as of this encounter Visit Diagnoses Not on filedocumented in this encounter Care Teams Branch Lending Officer Relationship Specialty Start Date End Date Albaro Fields MD PCP - General Family Medicine 05/08/13 documented as of this encounter
--- OUTSIDE RECORDS SUMMARY | 2024-08-28 10:21 | XMS_ITS | Encounter Summary ---
Author Organization [facility] [place] [address] Care Team Providers Care Trackwalker Name Role Phone Albaro Fields MD Primary Care Provider [phone] Encounter Details Date Type Department Care Team [...] AM EDT Office Visit [facility] [address] [facility] [address] [place] [address] Hair Villagomez PA-C [address] [place] [address] documented as of this encounter Visit Diagnoses Not on filedocumented in this encounter Care Teams Trackwalker Relationship Specialty Start Date End Date Albaro Fields MD PCP - General Family Medicine 05/08/13 documented as of this encounter
--- OUTSIDE RECORDS SUMMARY | 2024-08-28 10:21 | XMS_ITS | Data Portability ---
Author Organization [facility] Address [address] [place] [address] Care Team Providers Care Technical System Analyst Name Role Phone ALBARO FIELDS Primary Care [...] 13:37:06 XR, chest, 2 view 2017 018 [facility], [address] [place] [address] , [place], [address], 8 08:39:28 Medication Orders ketorol ac 60 mg/2 mL intramu scular solutio n 2017 018 [email or web address] Not available 8 18:04:31 prednis one 20 mg tablet 2017 018 [facility], [address] [place], [address], 8 18:01:44 indomet hacin 50 mg capsule 2017 018 [facility], [address] [place], [address], 8 18:01:44 prednis one 20 mg tablet 2017 018 [facility], [address] [place] [address], [address], 8 12:30:50 Depo-Me drol 40 mg/mL suspens ion for injecti on 2017 018 [email or web address] Not available 8 18:04:38 Depo-Me drol 80 mg/mL suspens ion for injecti on 2017 018 [email or web address] Not available 8 18:04:42 hydroco done 7.5 mg-acet aminoph en 325 mg tablet 2017 018 [facility], [address] [place] [address], [address], 8 11:34:06 Medrol (Nabil) 4 mg tablets in a dose pack 2017 018 [email or web address] [facility], [address] [place] [address], [address], 8 10:27:34 ibuprof en 800 mg tablet 2017 018 [facility], [address] [place] [address], [address], 8 16:24:25 Levaqui n 500 mg tablet 2016 017 [email or web address] [facility], [address] [place] [address], [address], 8 16:14:31 Medrol (Nabil) 4 mg tablets in a dose pack 2016 017 [facility], [address] [place] [address], [address], 8 10:27:34 ceftria xone 1 gram solutio n for injecti on 2016 017 [email or web address] Not available 8 16:14:04 Depo-Me drol 80 mg/mL suspens ion for injecti on 2016 017 [email or web address] Not available 8 18:04:42 Depo-Me drol 40 mg/mL suspens ion for injecti on 2016 017 [email or web address] Not available 8 18:04:38 hydroco done 7.5 mg-acet aminoph en 325 mg tablet 2016 017 [facility], [address] [place] [address], [address], 7 09:33:35 Depo-Me drol 80 mg/mL suspens ion for injecti on 2016 017 [email or web address] Not available 8 18:04:42 Depo-Me drol 40 mg/mL suspens ion for injecti on 2016 017 [email or web address] Not available 8 18:04:38 Patient TargetsNo targets recorded. Patient Instructions Encounter Date Encounter Id Patient Instructions Last Modified By Organization Details Last Modified Time 01/07/2017 [id number] Quitting Tobacco : Care Instructions sneus Not available 01/11/2017 08:27:28 smoking cessatio n counseling, greater than 3 minutes up to 10 minutes* [email or web address] Not available 01/14/2017 07:52:57 cough: care instructions sneus Not available 01/11/2017 08:27:28 upper respirator y infection (cold): care instructions sneus Not available 01/11/2017 08:27:28 A healthy lifestyle: care instructions sneus Not available 01/11/2017 08:27:28 02/07/2017 [id number] Quitting Tobacco : Care Instructions [email or web address] Not available 02/07/2017 13:09:30 pneumonia: care instructions [email or web address] Not available 02/07/2017 13:09:30 learning about fever Not available 02/07/2017 13:09:29 cough: care instructions Not available 02/07/2017 13:09:29 chronic obstructive pulmonary disease (COPD): care instructions [email or web address] Not available 02/07/2017 13:09:29 learning about copd and how to prevent lung infections Not available 02/07/2017 13:09:29 03/09/2017 [id number] Quitting Tobacco : Care Instructions Not available 03/09/2017 16:34:11 smoking cessatio n counseling, greater than 3 minutes up to 10 minutes* [email or web address] Not available 04/29/2017 10:50:06 pleurisy: care instructions Not available 03/09/2017 16:23:28 rtc in 3-4 days if s/sx worsen or persist otherwise fu with dr fields as scheduled [email or web address] Not available 03/09/2017 16:32:03 04/08/2017 [id number] tendon injury (tendinopathy): care instructions sneus Not [...] instructions sneus Not available 04/08/2017 12:30:50 04/11/2017 [id number] plantar fasciitis: care instructions sneus Not available [...] Address Organization Details Recorded Time Nicotine dependence 53821689 Active 2016 Magda Bolaños in [facility] 7 15:37:11 Plantar fasciitis 117334200 Active 2017 Magda Bolaños in [facility] 8 11:20:35 Chronic obstructive pulmonary disease 15429036 Active 2016 Sonia Selby [facility] 7 11:48:57 Fibromyalgi a 633235180 Active 2016 SUE Zee [facility] 7 11:49:06 Vitamin D deficiency 12917812 Active 2016 SUE Zee [facility] 7 11:49:15 Major depressive disorder 465442766 Active 2016 SUE Zee [facility] 7 11:49:28 Rheumatoid arthritis 73223225 Completed 201603/24/2016 SUE Connolly [facility] 7 19:00:23 Obstructive sleep apnea syndrome 66324909 Active 2016 bipap SUE Zee [facility] 7 11:49:57 Insomnia 744169785 Active 2016 SUE Zee [facility] 7 11:50:17 Renewal of prescriptio n Active 2016 SUE Zee [facility] 7 09:52:39 Problem Notes None recorded. Procedures Surgical History Date Name Laterality Status Provider Name and Address Organization Details Recorded Time Knee arthroscopy/surg sachi completed Sonia Selby [facility] 03/24/2016 11:55:59 Breast Lumpectomy completed Sonia Selby [facility] 03/24/2016 11:56:46 Lysis of labial adhesions completed Sonia ROGERS [facility] 03/24/2016 11:57:06 Hysterectomy, Total Abdominal completed Sonia ROGERS [facility] 03/24/19 17 11:57:18 Imaging Results None recorded. Procedure Notes None recorded. Medical Equipment None Reported. Allergies Allergen ID Allergen Name Allergen Category Reaction Reaction Severity Criticality Documentation Date Start Date Code Code System Note Provider Name and Address Organization Details Recorded Time 38930 Buspar medicatio n Not available Not available Not available 12/12/20152007 81465 0 RxNorm React ion: Menta l distu rbsnc e; Comme nt: dk r; Not Available [facility] 6 08:53:24 Medications Name Sig Start Date [...] nued on: 01/28/20 11 10:43AM; User: nunu PhippsEst. Completi on: 02/06/20 11;Indic ation: Cold Symptoms [...] on: 01/21/20 15;Indic ation: Panic Disorder - ( 10) Not Available Not Available Not Available clobetaso [...] Completi on: 02/22/20 13;Indic ation: Pain - (167809 00) Not Available Not Available Not Available [...] for Obese Patient (BMI >= 30) - (032780 ) Not Available Not Available Not Available [...] Available Not Available Nasonex 50 mcg/actua tion [place] spray 2 sprays in each nostril by intranas al route once daily for 30 days 04/18 completed Nasonex 50 mcg/actu ation nasal spray,no n-aeroso l;Record ed Status: Recorded on: 10/30/19 11 3:10PM;D iscontin ued Status: Disconti nued on: 04/18/19 13 4:08PM;U ser: [email or web address] ;Est. Completi on: 04/27/19 12;Indic ation: Allergic Rhinitis - (79 00);Prin krysta: 10/30/19 11 Not Available Not Available [...] Disconti nued on: 12/07/19 12 7:39PM;U ser: [email or web address]; Est. Completi on: 02/02/20 11 Not Available Not Available Not Available Vitals Date Recorded Body height Body mass index (BMI) Body weight Body temperature Heart rate Oxygen saturation Oxygen saturation in Arterial blood by Pulse oximetry Respiratory rate Systolic blood pressure Diastolic blood pressure Provider Name and Address Organization Details Last Updated DateTime 8 165.1 cm 32.3 kg/m2 36357.0 2 g 98.1 [degF] 104 /min 97 [...] Updated DateTime 8 165.1 cm 33.1 kg/m2 37926.8 8 g 77 /min 95 % 95 % 18 /min 98.2 [degF] 124 mm[Hg] 80 mm[Hg] Crystal [place] - [facility] 8 10:27:13 Date Recorded Body height Body mass index (BMI) Body weight Heart rate Respiratory rate Systolic blood pressure Diastolic blood pressure Provider Name and Address Organization Details Last Updated DateTime 8 165.1 cm 33.1 kg/m2 59828.8 8 g 76 /min 18 /min 120 mm[Hg] 82 mm[Hg] Albaro Fields [place] - [facility] 8 17:15:48 Date Recorded Body height Body mass index (BMI) Body weight Body temperature Heart rate Oxygen saturation Oxygen saturation in Arterial blood by Pulse oximetry Respiratory rate Systolic blood pressure Diastolic blood pressure Provider Name and Address Organization Details Last Updated DateTime 7 165.1 cm 33.3 kg/m2 85410.4 7 g 97.7 [degF] 80 /min 96 % 96 % 18 /min 120 mm[Hg] 78 mm[Hg] [employer] [place] - [facility] 7 09:12:51 Date Recorded Body height Body mass index (BMI) Body weight Body temperature Heart rate Oxygen saturation Oxygen saturation in Arterial blood by Pulse oximetry Respiratory rate Systolic blood pressure Diastolic blood pressure Provider Name and Address Organization Details Last Updated DateTime 7 165.1 cm 33.6 kg/m2 90048.6 6 g 98.1 [degF] 91 /min 94 % 94 % 18 /min 120 mm[Hg] 80 mm[Hg] [employer] [place] - [facility] 7 11:15:23 Social History Question Answer Notes LastModified by Organizat ion Details LastModified Time Tobacco Smoking Status Current Every Day Smoker Sonia buckley [place] - [facility] 03/24/2016 11:54:32 Which Illicit Or Recreational Drugs Have You Used? Never [email or web address] Information not available 03/24/2016 Hard Of Hearing Or Deaf In One Or Both Ears? No [email or web address] Information not available 03/24/2016 Legally Blind In One Or Both Eyes? No Information no t available 03/24/2016 What Was The Date Of Your Most Recent Tobacco Screening? 04/11/2017 Information not available 09/27/2018 What Is Your Relationship Status? [email or web address] Information not available 03/24/2016 Smoke Alarm In Home Yes [email or web address] Information not available 03/24/2016 How Many Years Have You Smoked Tobacco? 41 [email or web address] Information not available 03/24/2016 Sex: Unknown Functional Status Question Answer Note LastModified by Organization D etails LastModified Time Are you currently employed? Yes [email or web address] Information not available 03/24/2016 Are you able to care for yourself? Yes [email or web address] Information n ot available 03/24/2016 Mental Status None recorded. Family History Relationship Description Onset Age of this Age Resolved Age Notes LastModified by Organization Details LastModified Time Maternal Grandfather Alzheimer's disease [email or web address] Not available 2016 11:50:50 Maternal Grandfather Rheumatoid arthritis [email or web address] Not available 2016 11:51:21 Maternal Grandfather Malignant neoplasm of lung [email or web address] Not available 2016 11:52:07 Maternal Grandmother Malignant tumor of breast [email or web address] Not available 2016 11:51:37 Unspecified Relation Malignant neoplasm of liver uncle [email or web address] Not available 2016 11:51:54 Unspecified Relation Malignant neoplasm of uterus aunt [email or web address] Not available 2016 11:53:10 Father Malignant neoplasm of skin [email or web address] Not available 2016 11:52:27 Mother Hypertensive disorder uncle [email or web address] Not available 2016 11:53:27 Mother Hyperlipidem ia aunt and uncle [email or web address] Not available 03/24/2016 11:53:55 Medical History No medical history recorded. Gynecological HistoryNo gynecological history recorded. Obstetrics History GPAL:G 0 P 0 0 0 0 Immunizations Vaccine Type Date Status Note Provider Name and Address Organization Details Recorded Time influenza, unspecified formulation 013 completed Not Available [facility] 04/07/2019 02:21:22 influenza, unspecified formulation 015 completed Not Available [facility] 04/07/2019 02:21:22 Influenza, split virus, quadrivalent, preservative 017 cancelled patient objection Not Available [facility] 03/24/2019 03:54:43 pneumococcal polysaccharide PPV23 017 cancelled patient objection Not Available [facility] 03/24/2019 03:54:45 pneumococcal polysaccharide PPV23 013 completed Not Available [facility] 04/07/2019 02:21:58 Past Encounters Encounter ID Performer Location Encounter Start Date Encounter Closed Date Diagnosis/Indication Diagnosis SNOMED-CT Code Diagnosis ICD10 Code Diagnosis Note [id number] Albaro Fields MD [address] [place] [address] 03/24/2016 16:41:46 03/29/2016 08:54:56 Fibromyalgia 502635411 M79.7 Acute sinusitis 77863036 J01.90 [id number] Albaro Fields MD [address] [place] [address] 04/07/2016 13:39:47 04/07/2016 14:56:09 Lymphadenitis 34528928 I88.9 [id number] Albaro Fields MD [address] [address] 09/24/2016 14:55:56 09/24/2016 16:20:08 Acute sinusitis 98896465 J01.90 Cough 03254221 R05 Nicotine dependence 5629 4008 F17.200 Contact dermatitis 54510 004 L25.9 Renewal of prescription 646769642 Z76.0 [id number] Albaro Fields MD [address] [address] 01/07/2017 08:55:48 01/07/2017 09:38:55 Body mass index 30+ - obesity 995294491 Z68.33 Vaccine de clined by patient 1658355046 02 Z28.20 Upper resp iratory infection 96122737 J06.9 Cough 03115726 R05 Nicotine dependence 5629 4008 F17.200 Fibromyalgia 722868756 M 79.7 [id number] Albaro Fields MD [address] [address] 02/07/2017 10:40:52 02/07/2017 12:37:31 Fever 446475287 R50.9 Cough 32248110 R05 Chronic ob structive pulmonary disease 75861849 J44.9 Nicotine dependence 5629 4008 F17.200 Pneumonia 481842558 J18. 9 [id number] Kesha Hercules APRN [address] [place] [address] 03/09/2017 15:55:58 03/09/2017 16:25:40 Pleurisy 433285652 R09.1 Tobacco user 042221998 Z 72.0 [id number] Albaro Fields MD [facility] [address] [place], [place] [address] [place] [address] 04/08/2017 09:54:49 04/08/2017 11:47:23 Body mass index 30+ - obesity 058909767 Z68.33 Chronic ob structive pulmonary disease 33348776 J44.9 Nicotine dependence 5629 4008 F17.200 Tendinitis 44836793 M77. 9 Fibromyalgia 308885035 M 79.7 [id number] Albaro Fields MD [facility] [address] [place], [place] [address] [place] [address] 04/11/2017 15:56:07 04/11/2017 18:49:29 Chronic obstructive pulmonary disease 67408822 J44.9 Fibromyalgia 776833850 M 79.7 Plantar fasciitis 332155 003 M72.2 Health Concerns Section Related Observation LastModified by Organization Detai ls LastModified Time None Recorded Concern Status LastModified by Organization Details LastModified Time None Recorded Advance Directives Directive None Recorded Payers Insurance Date Sequence Insurance Name Policy Number Policy Malave Covered Member ID Malave Member ID Guarantor Name 11/25/2017 1 [place] [id number] [facility] [id number] [facility] Notes Date Note Type Note Provider Name [...] ea;nausea; Body aches, chills, headache Magda buckley [facility] 02/07/2017 12:27:03 03/09/2017 text/html BACK PAIN [...] every once in a while Kesha buckley [facility] 03/09/2017 16:35:10 04/08/2017 text/html Bilateral foot p ain. Worse when walking. Started about 1 week ago. Albaro buckley [facility] 04/13/2017 16:19:57 04/11/2017 text/html foot pain bilate ral worsening, can hardly walk--home from work Magda buckley [facility] 04/13/2017 14:15:37 OBGyn Episode No OBEpisode recorded.
--- OUTSIDE RECORDS SUMMARY | 2024-08-28 10:21 | XMS_ITS | Clinical Summary ---
Author Organization Healthcare Address [address] [place] [address] Care Team Providers Care Signing Teacher Name Role Phone Pcp, No Primary Care [...] 01/22/2013 [facility]-Zoster Vaccines (1 of 2) 09/13/2017 [id number] Vaccine ( season) 2023 [facility]-Influenza Vaccine ([place] [...] MEDICAID [employer] Care Teams Signing Teacher Relationship Specialty Start Date End Date Pcp, So [address] [place] [address] PCP - General Family Medicine 06/14/24
--- OUTSIDE RECORDS SUMMARY | 2024-08-28 10:21 | XMS_ITS | Encounter Summary ---
Author Organization Healthcare Address [address] [place] [address] Care Team Providers Care Medicine Worker Name Role Phone Pcp, No Primary Care Provider Unavailabl e Reason for Referral * Consultation (Routine) - Pending Review Specialty Diagnoses / Procedures Referred By Contac t Referred To Contact Rheumatology Diagnoses Fibromyalgia Albaro Fields MD [address] [place] [address] Phone: tel: fax: Referral ID Status Reason Start Date Expiration Date Visits Requested Visits Authorized [id number] Pending Review Specialty Services Required 08/26/2023 02/24/2025 1 1 Encounter Details Date Type Department Care Team (Latest Contact Info) Description 08/26/2023 Community [facility] Community Practice [address] [place] [address] Albaro Fields MD [address] [place] [address] Fibromyalgia (Primary Dx) Social History Tobacco Use [...] myositis documented in this encounter Care Teams Medicine Worker Relationship Specialty Start Date End Date Pcp, No [address] [place] [address] PCP - General Family Medicine 06/14/24 documented as of this encounter
--- OUTSIDE RECORDS SUMMARY | 2024-08-28 10:21 | XMS_ITS | Encounter Summary ---
Author Organization Healthcare Address [address] [place] [address] Care Team Providers Care Ehs Engineer Name Role Phone Pcp, No Primary Care Provider Unavailabl e Encounter Details Date Type Department Care Team (Latest Contact Info) Description 08/22/2023 Community Orders Community Practice [address] [place] [address] Albaro Fields MD [address] [place] [address] Fibromyalgia (Primary Dx) Social History Tobacco Use [...] myositis documented in this encounter Care Teams Ehs Engineer Relationship Specialty Start Date End Date Pcp, So [address] [place] [address] PCP - General Family Medicine 06/14/24 documented as of this encounter
--- OUTSIDE RECORDS SUMMARY | 2024-08-28 10:21 | XMS_ITS | Encounter Summary ---
Author Organization [facility] Address [address] [place] [address] Care Team Providers Care Property Underwriter Name Role Phone Albaro Fields MD Primary Care Provider [phone] Encounter Details Date Type Department Care Team (Late st Contact Info) Description 08/09/2024 Plan of Care Documentation [facility] [address] [facility] [address] [place], [place] [id number] Social History Tobacco Use Types Packs/Day Years [...] which caused her to seek treatment at [facility]. She was evaluated by Dr Boston and [...] 40' 1 E, 1 TE HEP ID: [id number] Treatment today included: Timed Units: Therapeutic exercise: [...] allow for improved function in the home. intermediate designer goals to be met in 8 weeks: [...] function Plan Patient will continue PT in [facility]. Pt advised to call with questions or concerns. Treatment to include therapeutic exercise, neuromuscular reeducation, manual therapy, therapeutic activity, gait training, vasopneumatic pump, and electrical stimulation. Signature: Bela Mccormick PT Date: 08/09/2024 [place] License: [id number] documented in this encounter Plan of Treatment Upcoming Encounters Date Type Department Care Team (Late st Contact Info) Description 08/30/2024 10:30 AM EDT Office Visit [facility] [address] [address] [place] [address] Hair Villagomez PA-C [address] [place] [address] documented as of this encounter Visit Diagnoses Not on filedocumented in this encounter Care Teams Property Underwriter Relationship Specialty Start Date End Date Albaro Fields MD PCP - General Family Medicine 05/08/13 documented as of this encounter
--- OUTSIDE RECORDS SUMMARY | 2024-08-28 10:21 | XMS_ITS | Clinical Summary ---
Author Organization [facility] Address [address] [facility] [address] [place] [address] Phone Care Team Providers Care Grommet Worker Name Role Phone Albaro Fields MD Primary Care Provider [phone] Allergies Active Allergy Reactions Criticality Noted Date [...] not take the medication, Reported on 08/07/2024 ibuprofen (ADVIL;MOTRIN) 800 mg Oral Tablet Take 1 Tablet by mouth 3 times daily for 7 days. 21 Tablet 5 08/02/19 25 acetaminophen (TYLENOL) 500 mg Oral Tablet Take 2 Tablets by mouth every 8 hours for 10 days. 08/08/19 25 Active Problems Problem Noted Date Diagnosed Date Chronic pain of left ankle 08/07/2024 Osteochondral lesion of talar dome 06/28/2024 Medication monitoring encounter 10/06/2013 Smoker 10/06/2013 Elevated hemoglobin 10/06/2013 Elevated white blood cell count 10/06/2013 Elevated C-reactive protein (CRP) 10/06/2013 OA (osteoarthritis) 10/06/2013 Fibromyalgia 10/06/2013 Encounters Date Type Department Care Team Description 08/09/2024 10:30 AM EDT Office Visit [facility] [address] [place] [phone] Bela Mccormick, PT Osteochondral lesion of talar dome (Primary Dx); Chronic pain of left ankle 08/09/2024 Plan of Care Documentation [facility] [address] [place] [id number] 08/07/2024 1:30 PM EDT Office Visit [facility] [address] [place] [id number] Hair Villagomez PA-C Osteochondral lesion of talar dome (Primary Dx) 07/26/2024 Telephone [facility] [address] [place] [address] Neil Boston MD Post-op Call 07/25/2024 8:00 AM EDT - 07/25/2024 8:45 AM EDT Surgery [facility] [address] [place] [phone] Neil Boston MD ANKLE ARTHROSCOPY EXCISION/DRILLING AND REPAIR OSTEOCHONDRAL DISSECANS LESION TALUS 07/25/2024 8:00 AM EDT - 07/25/2024 11:59 PM EDT Hospital Encounter [facility] [address] [place] [phone] Neil Boston MD Discharge Disposition: Home or Self Care 07/25/2024 7:53 AM EDT Anesthesia Event [facility] [address] [place] [address] Rachele Jordan CRNA Corriveau, Matthew M, MD 07/24/2024 Telephone [facility] [address] [place] [phone] Neil Boston MD Other (Surgery Arrival Time) 07/04/2024 Travel 06/28/2024 11:15 AM EDT Ancillary Procedure [facility] [address] [place] [phone] Neil Boston MD Left ankle pain, unspecified chronicity 06/28/2024 11:00 AM EDT [facility] [address] [place] [address] [phone] Neil Boston MD Left ankle pain, unspecified chronicity (Primary Dx); Osteochondral lesion of talar dome from Last 3 Months Surgical History Surgery Date Site/Laterality Comments CHOLECYSTECTOMY 2011 HYSTERECTOMY, VAGINAL 2010 KNEE SURGERY 1999 BREAST LUMPECTOMY 1997 ANKLE ARTHROSCOPY 07/25/2024 Foot/Ankle/Left Left Ankle Arthroscopy, excision drilling osteochondral lesion talus; Surgeon: Neil Boston MD; Location: [facility]; Service: Orthopedics Medical History Medical History Date [...] 10:30 AM EDT Office Visit [facility] [address] [facility] [address] [place] [address] Hair Villagomez PA-C [address] [place] [address] Health Maintenance Due Date Last [...] AIRWAY PLACEMENT Routine 07/25/2024 8:12 AM EDT [place] ARTHRS ANKLE EXC OSTCHNDRL DFCT W/DRLG DFCT 07/25/2024 7:56 AM EDT Osteochondral lesion of talar dome Special Needs bv XR ANKLE LEFT AP LATERAL AND OBLIQUE INCLUDING STANDING Routine 06/28/2024 11:02 AM EDT Left ankle pain, unspecified chronicity from Last 3 Months Results * INTRAOP AIRWAY PLACEMENT (07/25/2024 8:12 AM EDT) Narrative [facility] - 07/25/2024 8:12 AM EDT Rachele [...] Atraumatic and Unchanged Insertion attempts: 1 Title: 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 Rachele Jordan CRNA [place] ANESTHESIA Final Re sult [facility] [address] [place] [address] * XR ANKLE LEFT AP LATERAL AND OBLIQUE INCLUDING STANDING (06/28/2024 11:02 AM EDT) Shane William - 06/28/2024 11:03 AM EDT Please see physician's note from office encounter for x-ray imaging result us Neil Boston MD IMG DIAGNOSTIC IMAGING ORDER ROLANDO Final Result from Last 3 Months Insurance [id number] PLAN [address] [place] [id number] PLAN BY [facility] Care Teams Grommet Worker Relationship Specialty Start Date End Date Albaro Fields MD PCP - General Family Medicine 05/08/13
[2024-08-28 10:32] LABS: Basophils # 0.1 K/mm3 (0-0.2); Eosinophils # 0.4 Kmm3 (0.0-0.4); Eosinophils % 3.2 % (0.1-12.0); Hematocrit 43.7 % (37.0-47.0); Hemoglobin 14.5 g/dL (12.2-16.2); Immature Granulocytes # 0.04 10^3uL; Immature Granulocytes % 0.4 %; Lymphocytes # 2.6 K/mm3 (0.7-4.5); Lymphocytes % 23.4 % (10-50); Mean Corpuscular HGB Conc 33.2 g/dL (31.8-35.4); Mean Corpuscular Hemoglobin 27.7 pg (27.0-31.2); Mean Corpuscular Volume 83.4 fl (81-99); Mean Platelet Volume 10.6 fl (7.4-10.4); Monocytes # 0.5 K/mm3 (0.1-1.0); Monocytes % 4.1 % (1.7-9.3); Neutrophils # 7.5 K/mm3 (1.8-7.8); Neutrophils % 67.9 % (37.0-80.0); Nucleated Red Blood Cells # 0 10^3/uL; Nucleated Red Blood Cells % 0 %; Platelet Count 317 K/mm3 (142-424); Red Blood Count 5.24 M/mm3 (4.20-5.40); Red Cell Distribution Width 13.7 % (11.5-17.5); Red Cell Distribution Width-SD 42.2 fL
[2024-08-28 11:19] LABS: Anion Gap 9.8 mEq/L (5-15); Blood Urea Nitrogen 10 mg/dl (7-17); Calcium 10.1 mg/dl (8.4-10.2); Carbon Dioxide 29 mmol/L (22.0-30.0); Chloride 103 mmol/L (98-107); Estimated Glomerular Filt Rate 128 ml/min (>60); GFR (African American) 154 ML/MIN (>60); Glucose 132 mg/dl (74-100); Potassium 3.8 mmoL/L (3.5-5.1); Sodium 138 mmol/L (136-145)
== END 2024-08-28 23:59 | disposition home or self-care (01) ==
LOC: LAB 10:19
PROVIDERS: PCP Family Medicine; Visit Provider Physician Assistant
DX: I24.9 Acute ischemic heart disease, unspecified (principal)
CPT/HCPCS: 36415; 80048; 85025

== ENCOUNTER 2024-09-26 14:47 | Outpatient (CLI) | payer MEDICAID, SELFPAY ==
--- OUTSIDE RECORDS SUMMARY | 2024-08-07 13:30 | XMS_ITS | Encounter Summary ---
Author Organization [facility] Address [address] [place] [address] Care Team Providers Care Library Services Coordinator Name Role Phone Albaro Fields MD Primary Care Provider [phone] Reason for Referral * Physical Therapy (Routine) - Pending Review Specialty Diagnoses / Procedures Referred By Lit georges Referred To Contact Diagnoses Osteochondral lesion of talar dome Hair Villagomez PA-C [address] [place] [address] Phone: tel: fax: Referral ID Status Reason Start Date Expiration Date V isits Requested Visits Authorized [id number] Pending Review 08/07/2024 08/07/2025 1 1 Question Answer surgical procedure Left ankle arthroscopy, with excision and drilling of osteochondral lesion talus Evaluate and Treat Yes Therapeutic Exercise As Indicated Goals: Decrease pain and swelling, Increase function, Increase strength, Increase ROM Additional instructions: Frequency and duration per therapist discretion, Teach HEP Reason for Visit * Reason Comments Post-Operative Exam Encounter Details Date Type Department Care Team (Late st Contact Info) Description 08/07/2024 1:30 PM EDT Office Visit [facility] [address] [address] Hair Villagomez PA-C [address] [place] [address] Osteochondral lesion of talar dome (Primary Dx) Social History Tobacco Use Types Packs/Day Years Used Date Smoking Tobacco: Some Days Cigarettes 1 0.3 Started: 06/2024 Smokeless Tobacco: Never Alcohol Use Standard Drinks/Week Comments No 0 (1 standard drink = 0.6 oz pur e alcohol) Comments No Sex and Gender Information Value Date Recorded Sex Assigned at Not on file Legal Sex Female 10:58 AM EST Gender Identity Not on file Sexual Orientation Not on file documented as of this encounter Progress Notes * Hair Villagomez PA-C - 08/07/2024 1:30 PM EDT Images from the original note were not included. Hair Villagomez PA-C Foot and Ankle Surgery and Sports Medicine [email or web address] HPI: Patient status post left ankle surgery. Doing well. Is in her normal shoes. Feels better than her preoperative status already. Wants to do physical therapy closer to home. Physical Exam: Left ankle shows well-healed portal sites. No signs infection. Mild ankle swelling. Ankle range of motion intact. Impression: Status post left ankleexcision drilling osteochondral lesion talus, 07/25/2024 Plan: Sutures removed, Steri-Strips applied. Incision instructions were discussed with the patient. Continue normal, supportive shoe wear. Start formal physical therapy as scheduled. She was given updated prescription to take to outside firm closer to home. Follow up with me in 3 to 4 weeks for reevaluation. DME: DME Summary No orders found for display Hair Villagomez PA-C documented in this encounter Plan of Treatment Scheduled Referrals Name Type Priority Associated Diagnoses Orde r Schedule AMB REFERRAL TO PHYSICAL THERAPY Outpatient Referral Routine Osteochondral lesion of talar dome Ordered: 08/07/2024 documented as of this encounter Visit Diagnoses Diagnosis Osteochondral lesion of talar dome- Primary Disorder of bone and cartilage, unspecified documented in this encounter Care Teams Library Services Coordinator Relationship Specialty Start Date End Date Albaro Fields MD PCP - General Family Medicine 05/08/13 documented as of this encounter
--- OUTSIDE RECORDS SUMMARY | 2024-08-09 10:30 | XMS_ITS | Encounter Summary ---
Author Organization [facility] Address [address] [place] [address] Care Team Providers Care Waiter/Waitress Tourist Class Name Role Phone Albaro Fields MD Primary Care Provider [phone] Reason for Visit * Physical Therapy (Routine) - Authorization Not Needed Specialty Diagnoses / Procedures Referred By Lit georges Referred To Contact Physical Therapy Diagnoses Left ankle pain, unspecified chronicity Osteochondral lesion of talar dome Neil Boston MD [address] [place] [address] Phone: tel: fax: [facility] [address] [place] [address] Phone: tel: fax: Referral ID Status Reason Start Date Expiration Date Visits Requested Visits Authorized [id number] Authorization Not Needed 06/28/2024 03/06/2025 1 20 Encounter Details Date Type Department Care Team (Latest Contact Info) Description 08/09/2024 10:30 AM EDT Office Visit [facility] [address] [place] [address] Bela Mccormick, PT [address] [place] [address] Osteochondral lesion of talar dome (Primary Dx); [...] 40' 1 E, 1 TE HEP ID: [id number] Treatment today included: Timed Units: Therapeutic exercise: [...] allow for improved function in the home. detention goals to be met in 8 weeks: [...] function Plan Patient will continue PT in [facility]. Pt advised to call with questions or concerns. Treatment to include therapeutic exercise, neuromuscular reeducation, manual therapy, therapeutic activity, gait training, vasopneumatic pump, and electrical stimulation. Signature: Bela Mccormick, PT Date: 08/09/2024 [place] License: [id number] documented in this encounter Plan of Treatment [...] ankle documented in this encounter Care Teams Waiter/Waitress Tourist Class Relationship Specialty Start Date End Date Albaro Fields MD PCP - General Family Medicine 05/08/13 documented as of this encounter
--- OUTSIDE RECORDS SUMMARY | 2024-08-30 10:30 | XMS_ITS | Encounter Summary ---
Author Organization [facility] Address [address] [place] [address] Care Team Providers Care Operations Assistant Name Role Phone Albaro Fields MD Primary Care Provider [phone] Reason for Visit * Reason Comments Follow-up Encounter Details Date Type Department Care Team (Late st Contact Info) Description 08/30/2024 10:30 AM EDT Office Visit [facility] [address] [facility] [address] [place] [address] Hair Villagomez PA-C [address] [place] [address] Osteochondral lesion of talar dome (Primary Dx) [...] Progress Notes * Hair Villagomez PA-C - 08/30/2024 10:30 AM EDT Images from the original note were not included. Hair Villagomez PA-C Foot and Ankle Surgery and Sports [email or web address] HPI: Patient status post left ankle surgery. Her left ankle is doing great. She has only had 1 session of PT due to a recent heart attack. She is scheduled to restart therapy tomorrow. Physical Exam: Left ankle shows well-healed incision. No ankle swelling. Ankle range of motion intact. Impression: Status post left ankle excision drilling osteochondral lesion talus, 07/25/2024 Plan: Patient's ankle is doing well. PT delayed due to recent heart attack. She is scheduled to restart therapy tomorrow. Gradual returnto activity as tolerated. Follow-up as needed. DME: DME Summary No orders found for display Hair Villagomez PA-C documented in this encounter Plan of Treatment Not on file documented as of this encounter Visit Diagnoses Diagnosis Osteochondral lesion of talar dome- Primary Disorder of bone and cartilage, unspecified documented in this encounter Historical Medications * This list may reflect changes made after this encounter. piroxicam (FELDENE) 20 mg Oral Capsule Take 20 mg by mouth daily. 07/31/2024 nicotine (NICODERM CQ) 21 mg/24 hr TD Patch [address] 1 Patch onto the skin daily. 08/20/2024 aspirin 81 mg Oral Tablet, Delayed Release (E.C.) Take 81 mg by mouth daily. 08/18/2024 losartan (COZAAR) 25 mg Oral Tablet Take 25 mg by mouth daily. 08/18/2024 metoprolol succinate (TOPROL-XL) 25 mg Oral Tablet Sustained Release 24 hr Take 25 mg by mouth daily. 08/18/2024 prasugreL HCl (EFFIENT) 10 mg Oral Tablet Take 10 mg by mouth daily. 08/18/2024 rosuvastatin (CRESTOR) 20 mg Oral Tablet Take 20 mg by mouth daily. 08/18/2024 added in this encounter Care Teams Operations Assistant Relationship Specialty Start Date End Date Albaro Fields MD PCP - General Family Medicine 05/08/13 documented as of this encounter
--- NOTE | 2024-09-26 14:45 | MM_ITS ---
PROCEDURE INFORMATION: Exam: US Left Breast, Complete MG Left Diagnostic Breast Tomosynthesis Exam date and time: 09/26/2024 3:10 PM Age: 59 years old Clinical indication: Callback for a left breast focal asymmetry. TECHNIQUE: Imaging protocol: Complete ultrasound of all four quadrants of the left breast and the retroareolar regions, including ultrasound of the axilla when performed. Left Diagnostic tomosynthesis and 2D mammography including computer-aided detection (CAD) when performed. Unilateral or bilateral exam. COMPARISON: 1. MG SCN DIG BREAST TOMOSYN KRYSTEN 09/21/2024 3:45 PM 2. MG DIG MAMMO BILAT SCREENING 04/23/2013 8:23 AM FINDINGS: MAMMOGRAPHY: Breast composition: The breast is heterogeneously dense, which may obscure small masses. Breast mammogram findings: Spot-compression views of the left breast demonstrate no discrete mass, suspicious asymmetry, or unexplained distortion in the area of concern. A biopsy tissue marker is noted in the upper outer aspect at the anterior depth. ULTRASOUND: Breast ultrasound findings: Complete scanning of the left breast is performed. At 12 o'clock, there are benign fibroglandular elements that are annotated. There is no suspicious mass, shadowing, or distortion. No axillary adenopathy. IMPRESSION: 1. No mammographic or sonographic evidence of malignancy. No persistent abnormality on additional imaging of the left breast. 2. Annual bilateral mammographic screening is recommended unless otherwise clinically indicated. ASSESSMENT: BI-RADS Category 2: Benign.
--- OUTSIDE RECORDS SUMMARY | 2024-09-26 14:49 | XMS_ITS | Data Portability ---
Author Organization [facility] Address [address] [place] [address] Care Team Providers Care Machinist First Class Name Role Phone ALBARO FIELDS Primary Care [...] XR, chest, 2 view 2017 018 [facility], [address] [place] [address] , [place], [address], 8 08:39:28 Medication Orders ketorol ac 60 mg/2 mL intramu scular solutio n 2017 018 [email or web address] Not available 8 18:04:31 prednis one 20 mg tablet 2017 018 [facility] [place], [address], 8 18:01:44 indomet hacin 50 mg capsule 2017 018 [facility] [address] [place], [address], 8 18:01:44 prednis one 20 mg tablet [address] [facility], [address] [place] [address], [id number], 8 12:30:50 Depo-Me drol 40 mg/mL suspens ion for injecti on 2017 018 [email or web address] Not available 8 18:04:38 Depo-Me drol 80 mg/mL suspens ion for injecti on 2017 018 [email or web address] Not available 8 18:04:42 hydroco done 7.5 mg-acet aminoph en 325 mg tablet 2017 018 [facility], [address] [place] [address], [address], 8 11:34:06 Medrol (Nabil) 4 mg tablets in a dose pack 2017 018 [email or web address] [facility], [address] [place] [place] [address], [address], 8 10:27:34 ibuprof en 800 mg tablet 2017 018 [facility], [address] [place] [place] [address], [address], 8 16:24:25 Levaqui n 500 mg tablet 2016 017 [email or web address] [facility], [address] [place] [place] [address], [address], 8 16:14:31 Medrol (Nabil) 4 mg tablets in a dose pack 2016 [facility], [address] [place] [place] [address], [address], 8 10:27:34 ceftria xone 1 gram solutio n for injecti on 2016 017 [email or web address] Not available 8 16:14:04 Depo-Me drol 80 mg/mL suspens ion for injecti on 2016 017 [email or web address] Not available 8 18:04:42 Depo-Me drol 40 mg/mL suspens ion for injecti on 2016 017 [email or web address] Not available 8 18:04:38 hydroco done 7.5 mg-acet aminoph en 325 mg tablet 2016 017 [facility], [address] [place] [address], [address], 7 09:33:35 Depo-Me drol 80 mg/mL suspens ion for injecti on 2016 017 Not available 8 18:04:42 Depo-Me drol 40 mg/mL suspens ion for injecti on 2016 017 Not available 8 18:04:38 Patient TargetsNo targets recorded. Patient Instructions Encounter Date Encounter Id Patient Instructions Last Modified By Organization Details Last Modified Time 01/07/2017 [id number] Quitting Tobacco : Care Instructions sneus Not available 01/11/2017 08:27:28 smoking cessatio n counseling, greater than 3 minutes up to 10 minutes* [email or web address] Not available 01/14/2017 07:52:57 cough: care instructions sneus Not available 01/11/2017 08:27:28 upper respirator y infection (cold): care instructions sneus Not available 01/11/2017 08:27:28 A healthy lifestyle: care instructions sneus Not available 01/11/2017 08:27:28 02/07/2017 [id number] Quitting Tobacco : Care Instructions [email or web address] Not available 02/07/2017 13:09:30 pneumonia: care instructions [email or web address] Not available 02/07/2017 13:09:30 learning about fever Not available 02/07/2017 13:09:29 cough: care instructions [email or web address] Not available 02/07/2017 13:09:29 chronic obstructive pulmonary disease (COPD): care instructions [email or web address] Not available 02/07/2017 13:09:29 learning about copd and how to prevent lung infections [email or web address] Not available 02/07/2017 13:09:29 03/09/2017 [id number] Quitting Tobacco : Care Instructions [email or web address] Not available 03/09/2017 16:34:11 smoking cessatio n counseling, greater than 3 minutes up to 10 minutes* [email or web address] Not available 04/29/2017 10:50:06 pleurisy: care instructions Not available 03/09/2017 16:23:28 rtc in 3-4 days if s/sx worsen or persist otherwise fu with dr fields as scheduled [email or web address] Not available 03/09/2017 16:32:03 04/08/2017 [id number] tendon injury (tendinopathy): care instructions sneus Not [...] instructions sneus Not available 04/08/2017 12:30:50 04/11/2017 [id number] plantar fasciitis: care instructions sneus Not available [...] Name and Address Organization Details Recorded Time Chronic obstructive pulmonary disease 65565289 Active 2016 Sonia buckley [facility] 7 11:48:57 Fibromyalgi a 714892984 Active 2016 [facility] - [facility] 7 11:49:06 Vitamin D deficiency 96855054 Active 2016 Sonia buckley [facility] - [facility] 7 11:49:15 Major depressive disorder 264264196 Active 2016 Sonia buckley [facility] 7 11:49:28 Rheumatoid arthritis 00576557 [facility] 201603[facility]24[facility] 19:[facility]:23 Obstructive sleep apnea syndrome 97930240 Active 2016 [facility] 7 11:49:57 Insomnia 716584352 [facility] 7 11:50:17 Renewal of prescriptio n Active 2016 Sonia buckley [facility] 7 09:52:39 Nicotine dependence 88775534 Active 2016 Magdashanique Bolaños in [facility] 7 15:37:11 Plantar fasciitis 022174622 Active 2017 Magda Bolaños [facility] 8 11:20:35 Problem Notes None recorded. Procedures Surgical History Date Name Laterality Status Provider Name and Address Organization Details Recorded Time Knee arthroscopy/surg sachi completed Sonia Selby [facility] 03/24/2016 11:55:59 Breast Lumpectomy completed Sonia Selby [facility] 03/24/2016 11:56:46 Lysis of labial adhesions completed Sonia Selby [facility] 03/24/2016 11:57:06 Hysterectomy, Total Abdominal completed Sonia Selby [facility] 03/24/19 17 11:57:18 Imaging Results None recorded. Procedure Notes None recorded. Medical Equipment None Reported. Allergies Allergen ID Allergen Name Allergen Category Reaction Reaction Severity Criticality Documentation Date Start Date Code Code System Note Provider Name and Address Organization Details Recorded Time 72801 Buspar medicatio n Not available Not available Not available 12/12/20152007 64294 0 RxNorm React ion: Menta l distu [...] Available Not Available Nasonex 50 mcg/actua tion Greentop spray 2 sprays in each nostril by [...] blood by Pulse oximetry Respiratory rate Systolic And Diastolic Provider Name and Address Organization Details Last Updated DateTime 8 165.1 cm 32.3 kg/m2 54057.0 2 g 98.1 [degF] 104 /min 97 % 97 % 20 /min 122/82 mm[Hg] Arabella Walsh [place] - [facility] 8 16:13:50 Date Recorded Body height Body mass index (BMI) Body weight Heart rate Oxygen saturation Oxygen saturation in Arterial blood by Pulse oximetry Respiratory rate Body temperature Systolic And Diastolic Provider Name and Address Organization Details Last Updated DateTime 8 165.1 cm 33.1 kg/m2 83954.8 8 g 77 /min 95 % 95 % 18 /min 98.2 [degF] 124/80 mm[Hg] [employer] - [facility] 8 10:27:13 Date Recorded Body height Body mass index (BMI) Body weight Heart rate Respiratory rate Systolic And Diastolic Provider Name and Address Organization Details Last Updated DateTime 8 165.1 cm 33.1 kg/m2 09931.8 8 g 76 /min 18 /min 120/82 mm[Hg] Albaro Leonjoshua [place] - [facility] 8 17:15:48 Date Recorded Body height Body mass index (BMI) Body weight Body temperature Heart rate Oxygen saturation Oxygen saturation in Arterial blood by Pulse oximetry Respiratory rate Systolic And Diastolic Provider Name and Address Organization Details Last Updated DateTime 7 165.1 cm 33.3 kg/m2 17524.4 7 g 97.7 [degF] 80 /min 96 % 96 % 18 /min 120/78 mm[Hg] [employer] [place] - [facility] 7 09:12:51 Date Recorded Body height Body mass index (BMI) Body weight Body temperature Heart rate Oxygen saturation Oxygen saturation in Arterial blood by Pulse oximetry Respiratory rate Systolic And Diastolic Provider Name and Address Organization Details Last Updated DateTime 7 165.1 cm 33.6 kg/m2 95205.6 6 g 98.1 [degF] 91 /min 94 % 94 % 18 /min 120/80 mm[Hg] [employer] Leonardo [place] - [facility] 7 11:15:23 Social History Question Answer Notes LastModified by Organizat ion Details LastModified Time Tobacco Smoking Status Current Every Day Smoker Sonia buckley [place] - [facility] 03/24/2016 11:54:32 Which Illicit Or Recreational Drugs Have You Used? Never [email or web address] Information not available 03/24/2016 Hard Of Hearing Or Deaf In One Or Both Ears? No [email or web address] Information not available 03/24/2016 Legally Blind In One Or Both Eyes? No Information no t available 03/24/2016 What Was The Date Of Your Most Recent Tobacco Screening? 04/11/2017 Information not available 09/27/2018 What Is Your Relationship Status? [email or web address] Information not available 03/24/2016 Smoke Alarm In Home Yes [email or web address] Information not available 03/24/2016 How Many Years Have You Smoked Tobacco? 41 [email or web address] Information not available 03/24/2016 Sex: Unknown Functional Status Question Answer Note LastModified by Organization D etails LastModified Time Are you currently employed? Yes [email or web address] Information not available 03/24/2016 Are you able to care for yourself? Yes [email or web address] Information n ot available 03/24/2016 Mental Status None recorded. Family History Relationship Description Onset Age of this Age Resolved Age Notes LastModified by Organization Details LastModified Time Maternal Grandfather Alzheimer's disease [email or web address] Not available 2016 11:50:50 Maternal Grandfather Rheumatoid arthritis [email or web address] Not available 2016 11:51:21 Maternal Grandfather Malignant neoplasm of lung [email or web address] Not available 2016 11:52:07 Maternal Grandmother Malignant tumor of breast [email or web address] Not available 2016 11:51:37 Unspecified Relation Malignant neoplasm of liver uncle [email or web address] Not available 2016 11:51:54 Unspecified Relation Malignant neoplasm of uterus aunt [email or web address] Not available 2016 11:53:10 Father Malignant neoplasm of skin [email or web address] Not available 2016 11:52:27 Mother Hypertensive disorder uncle [email or web address] Not available 2016 11:53:27 Mother Hyperlipidem ia aunt and uncle [email or web address] Not available 03/24/2016 11:53:55 Medical History No medical history recorded. Gynecological HistoryNo gynecological history recorded. Obstetrics History GPAL:G 0 P 0 0 0 0 Immunizations Vaccine Type Date Status Note Provider Name and Address Organization Details Recorded Time influenza, unspecified formulation 013 completed Not Available [facility] 04/07/2019 02:21:22 influenza, unspecified formulation 015 completed Not Available [facility] 04/07/2019 02:21:22 Influenza, split virus, quadrivalent, preservative 017 cancelled patient objection Not Available [facility] 03/24/2019 03:54:43 pneumococcal polysaccharide PPV23 017 cancelled patient objection Not Available [facility] 03/24/2019 03:54:45 pneumococcal polysaccharide PPV23 013 completed Not Available [facility] 04/07/2019 02:21:58 Past Encounters Encounter ID Performer Location Encounter Start Date Encounter Closed Date Diagnosis/Indication Diagnosis SNOMED-CT Code Diagnosis ICD10 Code Diagnosis Note [id number] Albaro Feilds MD [facility] [address] [place], [place] [address] [place] [address] 03/24/2016 16:41:46 03/29/2016 08:54:56 Fibromyalgia 773754943 M79.7 Acute sinusitis 63619638 J01.90 [id number] Albaro Fields MD [address] [address] 04/07/2016 13:39:47 04/07/2016 14:56:09 Lymphadenitis 88123018 I88.9 [id number] Albaro Fields MD [address] [place] [address] 09/24/2016 14:55:56 09/24/2016 16:20:08 Acute sinusitis 54475533 J01.90 Cough 62777582 R05 Nicotine dependence 5629 4008 F17.200 Contact dermatitis 17265 004 L25.9 Renewal of prescription 864745475 Z76.0 [id number] Albaro Fields MD [address] [place] [address] 01/07/2017 08:55:48 01/07/2017 09:38:55 Body mass index 30+ - obesity 075430782 Z68.33 Vaccine de clined by patient 7620149059 02 Z28.20 Upper resp iratory infection 11767322 J06.9 Cough 39019904 R05 Nicotine dependence 5629 4008 F17.200 Fibromyalgia 632472537 M 79.7 [id number] Albaro Fields MD [address] [place] [address] 02/07/2017 10:40:52 02/07/2017 12:37:31 Fever 987427378 R50.9 Cough 19124813 R05 Chronic ob structive pulmonary disease 53070870 J44.9 Nicotine dependence 5629 4008 F17.200 Pneumonia 074212549 J18. 9 [id number] Kesha Hercules APRN [address] [place] [address] 03/09/2017 15:55:58 03/09/2017 16:25:40 Pleurisy 806008894 R09.1 Tobacco user 766724483 Z 72.0 [id number] Albaro Fields MD [facility] [address] [place] [place] [address] 04/08/2017 09:54:49 04/08/2017 11:47:23 Body mass index 30+ - obesity 346395163 Z68.33 Chronic ob structive pulmonary disease 77043950 J44.9 Nicotine dependence 5629 4008 F17.200 Tendinitis 22647778 M77. 9 Fibromyalgia 529786554 M 79.7 [id number] Albaro Fields MD [facility] [address] [place] [place] [address] 04/11/2017 15:56:07 04/11/2017 18:49:29 Chronic obstructive pulmonary disease 04787014 J44.9 Fibromyalgia 287061045 M 79.7 Plantar fasciitis 206766 003 M72.2 Health Concerns Section Related Observation LastModified by Organization Detai ls LastModified Time None Recorded Concern Status LastModified by Organization Details LastModified Time None Recorded Advance Directives Directive None Recorded Payers Insurance Date Sequence Insurance Name Policy Number Policy Malave Covered Member ID Malave Member ID Guarantor Name 11/25/2017 1 [employer] [id number] [facility] [id number] [facility] Notes Date Note Type Note Provider Name and Address Organization Details Recorded Time 01/07/2017 text/html Upper Respirator y SymptomsReported by PatientUpper Respiratory SymptomsFor quality, patient reportsproductive cough,colored phlegm,congested, andhacking cough. For location, patient reportsheadandthroat. For severity, patient reportsmild. For duration, patient reportscannot identify (about 1 week ago)andsymptoms lasting over 2 weeks. For onset/timing, patient reportssudden. For modifying factors, patient reportsotc medicationandsalt water gargles. For associated symptoms, (rib pain).ROS as noted in the HPI Magda Gallenstein null [facility] 01/07/2017 09:48:02 02/07/2017 text/html Upper Respirator y SymptomsReported by PatientUpper Respiratory SymptomsFor quality, patient reportscongested,marvin clarke cough, andhurts to swallow. For associated symptoms, patient reportsshortness of breath,fatigue,fever,s ore throat,vomiting,diarrh ea, andnausea(body aches, chills, headache). For location, patient reportsheadandthroat. For severity, patient reportsmild. For onset/timing, patient reportssudden. For modifying factors, patient reportsotc medicationandsalt water gargles.ROS as noted [facility] the [facility]PI [facility] 02/07/2017 12:27:03 03/09/2017 text/html BACK PAIN STARTED ON TUESDAY/GETTING WORSESTARTS IN RIGHT LOWER BACK [...] coughing every once in a while Kesha Hercules [facility] 03/09/2017 16:35:10 04/08/2017 text/html Bilateral foot pain. Worse when walking. Started about 1 week ago. Albaro Fields [facility] 04/13/2017 16:19:57 04/11/2017 text/html foot pain bilateral worsening, can hardly walk--home from work Magda Shirley [facility] 04/13/2017 14:15:37 OBGyn Episode No OBEpisode recorded.
--- OUTSIDE RECORDS SUMMARY | 2024-09-26 14:49 | XMS_ITS | Clinical Summary ---
Author Organization [facility] Address [address] [facility] [address] [place] [address] Phone Care Team Providers Care Hot Dip Tinning Supervisor Name Role Phone Albaro Fields MD Primary Care Provider [phone] Allergies Active Allergy Reactions Criticality Noted Date [...] not take the medication, Reported on 08/07/2024 rosuvastatin (CRESTOR) 20 mg Oral Tablet Take 20 mg by mouth daily. Active prasugreL HCl (EFFIENT) 10 mg Oral Tablet Take 10 mg by mouth daily. Active metoprolol succinate (TOPROL-XL) 25 mg Oral Tablet Sustained Release 24 hr Take 25 mg by mouth daily. Active losartan (COZAAR) 25 mg Oral Tablet Take 25 mg by mouth daily. Active aspirin 81 mg Oral Tablet, Delayed Release (E.C.) Take 81 mg by mouth daily. Active nicotine (NICODERM CQ) 21 mg/24 hr TD Patch [address] 1 Patch onto the skin daily. Active piroxicam (FELDENE) 20 mg Oral Capsule Take 20 mg by mouth daily. Active Active Problems Problem Noted Date Diagnosed Date Chronic pain of left ankle 08/07/2024 Osteochondral lesion of talar dome 06/28/2024 Medication monitoring encounter 10/06/2013 Smoker 10/06/2013 Elevated hemoglobin 10/06/2013 Elevated white blood cell count 10/06/2013 Elevated C-reactive protein (CRP) 10/06/2013 OA (osteoarthritis) 10/06/2013 Fibromyalgia 10/06/2013 Encounters Date Type Department Care Team Description 08/30/2024 10:30 AM EDT Office Visit [facility] [address] [place] [address] Hair Villagomez PA-C Osteochondral lesion of talar dome (Primary Dx) 08/09/2024 10:30 AM EDT Office Visit [facility] [address] [place] [address] Bela Mccormick, PT Osteochondral lesion of talar dome (Primary Dx); Chronic pain of left ankle 08/09/2024 Plan of Care Documentation [facility] [address] [place] [address] 08/07/2024 1:30 PM EDT Office Visit [facility] [address] [place] [address] Hair Villagomez PA-C Osteochondral lesion of talar dome (Primary Dx) 07/26/2024 [facility] [address] [address] Neil Boston MD Post-op Call 07/25/2024 8:00 AM EDT - 07/25/2024 8:45 AM EDT Surgery [facility] [address] [place] [address] Neil Boston MD ANKLE ARTHROSCOPY EXCISION/DRILLING AND REPAIR OSTEOCHONDRAL DISSECANS LESION TALUS 07/25/2024 8:00 AM EDT - 07/25/2024 11:59 PM EDT Hospital Encounter [facility] [address] [place] [address] Neil Boston MD Discharge Disposition: Home or Self Care 07/25/2024 7:53 AM EDT Anesthesia Event [facility] [address] [place] [address] Rachele Jordan CRNA Corriveau, Matthew M, MD 07/24/2024 Telephone [facility] [address] [address] Neil Boston MD Other (Surgery Arrival Time) 07/04/2024 Travel 06/28/2024 11:15 AM EDT Ancillary Procedure [facility] [address] [address] Neil Boston MD Left ankle pain, unspecified chronicity 06/28/2024 11:00 AM EDT Office Visit [facility] [address] [address] Neil Boston MD Left ankle pain, unspecified chronicity (Primary Dx); Osteochondral lesion of talar dome from Last 3 Months Surgical History Surgery Date Site/Laterality Comments CHOLECYSTECTOMY 2012 HYSTERECTOMY, VAGINAL 2010 KNEE SURGERY 1999 BREAST LUMPECTOMY 1997 ANKLE ARTHROSCOPY 07/25/2024 Foot/Ankle/Left Left Ankle Arthroscopy, excision drilling osteochondral lesion talus; Surgeon: Neil Boston MD; Location: [facility]; Service: Orthopedics Medical History Medical [...] 1 0.3 Started: 06/2024 Smokeless Tobacco: Never Tobacco Cessation:Ready [...] 07/25/2024 6:25 AM EDT Plan of Treatment Health Maintenance Due Date [...] Zoster (1 of 2) 09/13/2017 COVID-19 Vaccine ( - 2023-2 5 season) 2023 Influenza Vaccine (#1) 2024 Meningococcal B Vaccine Aged Out No l onger eligible based on patient's age to complete this topic Procedures Procedure Name Priority Date/Time Associated Diagnosis Comments INTRAOP AIRWAY PLACEMENT Routine 07/25/2024 8:12 AM EDT [facility] ANKLE EXC OSTCHNDRL DFCT W/DRLG DFCT 07/25/2024 7:56 AM EDT Osteochondral lesion of talar dome Special Needs bv XR ANKLE LEFT AP LATERAL AND OBLIQUE INCLUDING STANDING Routine 06/28/2024 11:02 AM EDT Left ankle pain, unspecified chronicity from Last 3 Months Results * INTRAOP AIRWAY PLACEMENT (07/25/2024 8:12 AM EDT) Narrative [facility] - 07/25/2024 8:12 AM [...] Atraumatic and Unchanged Insertion attempts: 1 Title: WET MIXER us Rachele Jordan CRNA [facility] Final Re sult [facility] [address] [place] [address] * XR ANKLE LEFT AP LATERAL AND OBLIQUE INCLUDING STANDING (06/28/2024 11:02 AM EDT) Narrative [facility] - 06/28/2024 11:03 AM EDT Please see physician's note from office encounter for x-ray imaging result us Neil Boston MD IMG DIAGNOSTIC IMAGING ORDER ROLANDO Final Result from Last 3 Months Insurance PLAN BY [facility] PLAN BY [employer] Care Teams Hot Dip Tinning Supervisor Relationship Specialty Start Date End Date Albaro Fields MD PCP - General Family Medicine 05/08/13
--- OUTSIDE RECORDS SUMMARY | 2024-09-26 14:49 | XMS_ITS | Clinical Summary ---
Author Organization Healthcare Address [address] [place] [address] Care Team Providers Care Fisher Net Name Role Phone Pcp, No Primary Care Provider Unavailabl e Social History Tobacco Use Types Packs/Day Years Used Date Smoking Tobacco: Never Assessed Comments Unknown Sex and Gender Information Value Date Recorded Sex Assigned at Not on file Legal Sex Female 11:12 AM EDT Gender Identity Not on file Sexual Orientation Not on file Plan of Treatment Health Maintenance Due Date Last Done Comments [facility]-Depression Screening 1967 [facility]-Infant/Child/Adol SDOH Screenings 1965 [facility]- SDOH Screenings 09/13/1985 [facility]-Adult SDOH Screenings 09/13/1985 [facility]-DTaP,Tdap,and Td Vaccine s (1 - Tdap) 09/13/1986 [facility]-Hepatitis B Vaccines (1 of 3 - 19+ 3-dose series) 09/13/1986 [facility]-Pap Smear 09/13/1988 [facility]-Cervical Cancer Screening 09/13/1997 [facility]-HPV/Cotest 09/13/1997 CT Colonography 09/13/2012 Colonoscopy 09/13/2012 FIT-DNA 09/13/2012 FIT 09/13/2012 FOBT 09/13/2012 Sigmoidoscopy 09/13/2012 [facility]-Colorectal Cancer Screening 09/13/2012 [facility]-Pneumococcal Vaccine: 50 + Years (2 of 2 - PCV) 09/13/2017 01/22/2013 [facility]-Zoster Vaccines (1 of 2) 09/13/2017 [id number]-31 Vaccine (1 - season) 2023 [facility]-Influenza Vaccine (#1) 11/05/202401/08, 01/22/2013 HPV Vaccines Aged Out No longer [...] MEDICAID [employer] Care Teams Fisher Net Relationship Specialty Start Date [place] [address] PCP - General Family Medicine 06/14/24
--- OUTSIDE RECORDS SUMMARY | 2024-09-26 14:49 | XMS_ITS | Encounter Summary ---
Author Organization Healthcare Address [address] [place] [address] Care Team Providers Care Teacher Ballet Name Role Phone Pcp, No Primary Care Provider Unavailabl e Reason for Referral * Consultation (Routine) - Pending Review Specialty Diagnoses / Procedures Referred By Contac t Referred To Contact Rheumatology Diagnoses Fibromyalgia Albaro Fields MD [address] [place] [address] Phone: tel: fax: Referral ID Status Reason Start Date Expiration Date Visits Requested Visits Authorized [id number] Pending Review Specialty Services Required 08/26/2023 02/24/2025 1 1 Encounter Details Date Type Department Care Team (Latest Contact Info) Description 08/26/2023 [facility] [address] [place] [phone] Albaro Fields MD [address] [place] [address] Fibromyalgia (Primary Dx) Social History Tobacco Use [...] myositis documented in this encounter Care Teams Teacher Ballet Relationship Specialty Start Date End Date Pcp, No [address] [place] [address] PCP - General Family Medicine 06/14/24 documented as of this encounter
--- OUTSIDE RECORDS SUMMARY | 2024-09-26 14:49 | XMS_ITS | Encounter Summary ---
Author Organization Healthcare Address [address] [place] [address] Care Team Providers Care Medical Affairs Director Name Role Phone Pcp, No Primary Care Provider Unavailabl e Encounter Details Date Type Department Care Team (Latest Contact Info) Description 08/22/2023 Community Orders Community Practice [address] [place] [address] Albaro Fields MD [address] [place] [address] Fibromyalgia (Primary Dx) Social History Tobacco Use [...] myositis documented in this encounter Care Teams Medical Affairs Director Relationship Specialty Start Date End Date Pcp, So [address] [place] [address] PCP - General Family Medicine 06/14/24 documented as of this encounter
--- OUTSIDE RECORDS SUMMARY | 2024-09-26 14:49 | XMS_ITS | Encounter Summary ---
Author Organization [facility] Address [address] [place] [address] Care Team Providers Care Net Mender Name Role Phone Albaro Fields MD Primary Care Provider [phone] Encounter Details Date Type Department Care Team (Late st Contact Info) Description 08/09/2024 Plan of Care Documentation [facility] [address] [facility] [address] [place], [place] [id number] Social History Tobacco Use Types Packs/Day Years [...] which caused her to seek treatment at [facility]. She was evaluated by Dr Boston [...] Strength Left Right Left Right DF 5/07 09/5 PF 4+/5 5/5 EV 4/5 5/5 INV [...] 40' 1 E, 1 TE HEP ID: [id number] Treatment today included: Timed Units: Therapeutic exercise: [...] allow for improved function in the home. computer terminal operator goals to be met in 8 weeks: [...] function Plan Patient will continue PT in [facility]. Pt advised to call with questions or concerns. Treatment to include therapeutic exercise, neuromuscular reeducation, manual therapy, therapeutic activity, gait training, vasopneumatic pump, and electrical stimulation. Signature: Bela Mccormick PT Date: 08/09/2024 [place] License: [id number] documented in this encounter Plan of Treatment Not on file documented as of this encounter Visit Diagnoses Not on filedocumented in this encounter Care Teams Net Mender Relationship Specialty Start Date End Date Albaro Fields MD PCP - General Family Medicine 05/08/13 documented as of this encounter
== END 2024-09-26 23:59 | disposition home or self-care (01) ==
LOC: RAD 14:48
PROVIDERS: PCP Family Medicine; Visit Provider Family Medicine
DX: R92.8 Other abnormal and inconclusive findings on diagnostic imaging of breast (principal); R92.332 Mammographic heterogeneous density, left breast
CPT/HCPCS: 76641; 77061; 77065; G0279

== ENCOUNTER 2024-11-28 09:45 | Outpatient (CLI) | payer MEDICAID, SELFPAY ==
--- OUTSIDE RECORDS SUMMARY | 2024-11-28 09:57 | XMS_ITS | Encounter Summary ---
Author Organization Healthcare Address [address] [place] [address] Care Team Providers Care Game Technician Name Role Phone Pcp, No Primary Care Provider Unavailabl e Encounter Details Date Type Department Care Team (Latest Contact Info) Description 08/22/2023 Community Orders Community Practice [address] [place] [address] Albaro Fields MD [address] [place] [address] Fibromyalgia (Primary Dx) Social History Tobacco Use [...] myositis documented in this encounter Care Teams Game Technician Relationship Specialty Start Date End Date Pcp, So [address] [place] [address] PCP - General Family Medicine 06/14/24 documented as of this encounter
--- OUTSIDE RECORDS SUMMARY | 2024-11-28 09:57 | XMS_ITS | Encounter Summary ---
Author Organization Healthcare Address [address] [place] [address] Care Team Providers Care Power Plant Operations Manager Name Role Phone Pcp, No Primary Care Provider Unavailabl e Reason for Referral * Consultation (Routine) - Pending Review Specialty Diagnoses / Procedures Referred By Contac t Referred To Contact Rheumatology Diagnoses Fibromyalgia Albaro Fields MD [address] [place] [address] Phone: tel: fax: Referral ID Status Reason Start Date Expiration Date Visits Requested Visits Authorized [id number] Pending Review Specialty Services Required 08/26/2023 02/24/2025 1 1 Encounter Details Date Type Department Care Team (Latest Contact Info) Description 08/26/2023 Community [facility] [address] [place] [phone] Albaro Fields MD [address] [place] [address] Fibromyalgia (Primary Dx) Social History Tobacco Use [...] myositis documented in this encounter Care Teams Power Plant Operations Manager Relationship Specialty Start Date End Date Pcp, No [address] [place] [address] PCP - General Family Medicine 06/14/24 documented as of this encounter
--- OUTSIDE RECORDS SUMMARY | 2024-11-28 09:58 | XMS_ITS | Clinical Summary ---
Author Organization [facility] Address [address] [facility] [address] [place] [address] Phone Care Team Providers Care Machine Chocolate Molder Name Role Phone Albaro Fields MD Primary Care Provider Allergies Active Allergy Reactions Criticality Noted Date [...] Description 08/30/2024 10:30 AM EDT Office Visit [facility] [address] [place] [address] Hair Villagomez PA-C Osteochondral lesion of talar dome (Primary Dx) from Last 3 Months Surgical History Surgery Date Site/Laterality Comments CHOLECYSTECTOMY 2011 HYSTERECTOMY, VAGINAL 2009 KNEE SURGERY 1999 BREAST LUMPECTOMY 1997 ANKLE ARTHROSCOPY 07/25/2024 Foot/Ankle/Left Left Ankle Arthroscopy, excision drilling osteochondral lesion talus; Surgeon: Neil Boston MD; Location: [facility]; Service: Orthopedics Medical History Medical History Date Comments Headache(784.0) Mild intermittent asthma, uncomplicated Sleep apnea Does not use CPA P Anesthesia Pt states she we nt in to A-fib after knee surgery. Family History Relation Name Status Comments Father Other Mother Alive Social History Tobacco Use Types Packs/Day Years Used Date Smoking Tobacco: Some Days Cigarettes 1 0.5 Started: 06/2024 Smokeless Tobacco: Never Tobacco Cessation:Ready [...] COVID-19 Vaccine (1 - 2023-2 5 season) 2024 Influenza Vaccine (#1) 2024 Meningococcal B Vaccine Aged Out No l onger eligible based on patient's age to complete this topic Insurance PLAN [facility] Care Teams Machine Chocolate Molder Relationship Specialty Start Date End Date Albaro Fields MD PCP - General Family Medicine 05/08/13
--- OUTSIDE RECORDS SUMMARY | 2024-11-28 09:58 | XMS_ITS | Clinical Summary ---
Author Organization Healthcare Address [address] [place] [address] Care Team Providers Care Scrip Clerk Name Role Phone Pcp, No Primary Care [...] 01/22/2013 [facility]-Zoster Vaccines (1 of 2) 09/13/2017 [id number] Vaccine (1 - season) 2024 [facility]-Influenza Vaccine (#1) 11/05/202401/08, 01/22/2013 HPV Vaccines [...] MEDICAID [employer] Care Teams Scrip Clerk Relationship Specialty Start Date [place] [address] PCP - General Family Medicine 06/14/24
[2024-11-28 10:10] LABS: Hematocrit 42.1 % (37.0-47.0); Hemoglobin 13.7 g/dL (12.2-16.2); Immature Granulocytes % 0.3 %; Mean Corpuscular HGB Conc 32.5 g/dL (31.8-35.4); Mean Corpuscular Hemoglobin 27.2 pg (27.0-31.2); Mean Corpuscular Volume 83.5 fl (81-99); Nucleated Red Blood Cells % 0 %; Platelet Count 322 K/mm3 (142-424); Red Blood Count 5.04 M/mm3 (4.20-5.40); Red Cell Distribution Width-SD 42.7 fL; White Blood Count 10.5 K/mm3 (4.8-10.8)
[2024-11-28 10:56] LABS: Alanine Aminotransferase 17 U/L (12-78); Albumin Level 3.9 g/dl (3.5-5.0); Alkaline Phosphatase 114 U/L (38-126); Anion Gap 10.6 mEq/L (5-15); Aspartate Amino Transferase 21 U/L (14-36); Bilirubin,Direct 0.1 mg/dl (0.0-0.4); Bilirubin,Indirect 0.4 mg/dL (0.0-0.9); Bilirubin,Total 0.5 mg/dl (0.2-1.3); Bilirubin,Unconjugated 0.3 mg/dL (0.0-1.1); Blood Urea Nitrogen 6 mg/dl (7-17); Calcium 9.4 mg/dl (8.4-10.2); Carbon Dioxide 28 mmol/L (22.0-30.0); Chloride 102 mmol/L (98-107); Cholesterol 131 mg/dl (140-200); Creatinine,Serum 0.50 mg/dl (0.52-1.04); Estimated Glomerular Filt Rate 127 ml/min (>60); GFR (African American) 154 ML/MIN (>60); Glucose 128 mg/dl (74-100); HDL Cholesterol 32 mg/dl (40-60); Magnesium 1.6 mg/dl (1.6-2.3); Potassium 3.6 mmoL/L (3.5-5.1); Sodium 137 mmol/L (136-145); Total Protein,Serum 6.0 g/dl (6.3-8.2); Triglycerides 152 mg/dl (30-150)
[2024-11-28 11:10] LABS: Free T4 (Free Thyroxine) 1.13 ng/dl (0.78-2.19)
[2024-11-28 11:25] LABS: Thyroid Stimulating Hormone 2.92 uIU/mL (0.465-4.68)
== END 2024-11-28 23:59 | disposition home or self-care (01) ==
LOC: LAB 09:45
PROVIDERS: PCP Family Medicine; Visit Provider Physician Assistant
DX: I25.10 Atherosclerotic heart disease of native coronary artery without angina pectoris (principal); I10 Essential (primary) hypertension
CPT/HCPCS: 36415; 80048; 80061; 80076; 83735; 84439; 84443; 85025